=== PATIENT | female | born 1980 | race Caucasian/White ===

== ENCOUNTER 2017-05-26 22:28 | Emergency (ER) | payer MEDICAID ==
[~2017-05-26] VITALS: Ht 162.6 cm; Wt 47.0 kg
[~2017-05-26 22:28] MED LIST: BUSP5TAB3 PO; ESCI20TA PO; INSU100C4 SQ; LEVE500T PO; LISI-600 PO; NORCO10T PO; NORT50CA PO; OMEP40CA37 PO; ONDA4TAB6 PO; PREG150C PO; TRAM50TA2 PO; ZOF4T PO
[2017-05-26] MEDS ORDERED: LORazepam 1 MG tablet PO ONE (23:00)
[2017-05-26 23:45] LABS: BASOPHILS % (AUTO) 0.4 % (0-1); EOSINOPHILS # (AUTO) 0.1 X10'3 (0-0.9); EOSINOPHILS % (AUTO) 1.5 % (0-6); HEMATOCRIT 33.4 % (35.0-45.0); LYMPHOCYTES # (AUTO) 1.4 X10'3 (1.1-4.8); LYMPHOCYTES % (AUTO) 30.1 % (21-51); MEAN CORPUSCULAR HEMOGLOBIN 23.6 PG (27.0-31.0); MEAN CORPUSCULAR HGB CONC 32.9 % (33.0-36.5); MEAN CORPUSCULAR VOLUME 71.9 FL (78-98); MEAN PLATELET VOLUME 8.4 FL (7.4-10.4); MONOCYTES # (AUTO) 0.3 X10'3 (0-0.9); MONOCYTES % (AUTO) 5.7 % (2-12); NEUTROPHILS % (AUTO) 62.3 % (42-75); PLATELET COUNT 273 X10'3 (140-440); RED BLOOD COUNT 4.64 X10'6 (4.20-5.60); RED CELL DISTRIBUTION WIDTH 21.7 % (11.5-14.5); WHITE BLOOD COUNT 4.8 X10'3 (4.5-11.0)
[2017-05-26 23:55] LABS: URINE HCG NEGATIVE (NEG)
[2017-05-26 23:57] LABS: CLARITY,URINE CLEAR (Clear); COLOR,URINE YELLOW (Yellow); GLUCOSE, URINE >=1000 mg/dl (Neg); KETONES,URINE NEGATIVE (Neg); LEUKOCYTE ESTERASE ,URINE NEGATIVE (Neg); NITRITES, URINE NEGATIVE (Neg); OCCULT BLOOD,URINE NEGATIVE (Neg); PROTEIN,URINE NEGATIVE (Neg); UROBILINOGEN,URINE 0.2 E.U/dL (0.2-1.0)
[2017-05-27 00:01] LABS: ALANINE AMINOTRANSFERASE 299 U/L (12-78); ALBUMIN 3.4 G/DL (3.4-5.0); ALBUMIN/GLOBULIN RATIO 0.9 (1.1-1.5); ALKALINE PHOSPHATASE 251 IU/L (46-116); ANION GAP 10 (8-16); ASPARTATE AMINO TRANSFERASE 170 U/L (10-37); BILIRUBIN,TOTAL 0.5 MG/DL (0.1-1.0); BLOOD UREA NITROGEN 18 MG/DL (7-18); BUN/CREATININE RATIO 16.7 (6.6-38.0); CALCIUM 8.7 MG/DL (8.5-10.1); CHLORIDE 90 MMOL/L (99-107); CREATININE 1.08 MG/DL (0.40-0.90); ETHANOL < 0.010 GM/DL (0.0-0.010); LIPASE 119 U/L (73-393); MAGNESIUM 2.1 MG/DL (1.5-2.4); PHOSPHORUS 3.6 MG/DL (2.3-4.5); POTASSIUM 3.9 MMOL/L (3.5-5.1); SODIUM 127 MMOL/L (135-145); TOTAL CARBON DIOXIDE 27.3 MMOL/L (24-32); eGFR 58 ML/MIN
[2017-05-27 00:04] LABS: GLUCOSE 692 MG/DL (70-104)
[2017-05-27 00:06] LABS: ABG BASE EXCESS -4.2 mmol/L (-2.0-3.0); ABG HCO3 20.3 mmol/L (22.0-26.0); ABG OXYGEN SATURATION 97.3 % (95-98); ABG PCO2 (T) 34.4 mmHg (32.0-45.0); ABG PH (T) 7.386 (7.350-7.450); ABG PO2 (T) 104.1 mmHg (83-108); ALLEN'S TEST Positive; FCOHb 0.7 % (0.5-1.5); FMetHb 0.3 % (0.3-1.12); FO2Hb 96.3 % (94-100); PATIENT TEMPERATURE 36.7; TOTAL HEMOGLOBIN 10.6 G/dl (12.0-16.0)
[2017-05-27 00:07] LABS: URINE AMPHETAMINE SCREEN NEGATIVE (Neg); URINE BARBITUATE SCREEN NEGATIVE (Neg); URINE BENZODIAZEPINES SCREEN NEGATIVE (Neg); URINE CANNABINOID SCREEN NEGATIVE (Neg); URINE COCAINE SCREEN NEGATIVE (Neg); URINE METHADONE SCREEN NEGATIVE (Neg); URINE OPIATE SCREEN POSITIVE (Neg); URINE PHENCYCLIDINE SCREEN NEGATIVE (Neg)
[2017-05-27] MEDS ORDERED: normal saline 1000ML IV soln IVB ONE ×2 (00:15→00:35)
[2017-05-27 00:22] LABS: UA COLLECTION TYPE CLN CATCH MIDSTREAM
[2017-05-27 00:24] LABS: BACTERIA,URINE NONE SEEN /HPF (Neg); MUCUS STRANDS NONE SEEN /LPF (Neg); RBC,URINE 0-2 /HPF (0-2); SQUAMOUS EPITHELIAL CELL,UR FEW /LPF (FEW); WBC,URINE NONE SEEN /HPF (0-4)
[2017-05-27] MEDS ORDERED: insulin regular, human 10 units/0.1 ml syringe IV ONE ×3 (00:35→02:30)
[2017-05-27] MEDS ORDERED: morphine 4 MG/ML inj SYRINge IV ONE (01:00)
[2017-05-27] MEDS ORDERED: ondansetron/PF 4mg/2ml inj IV ONE (01:00)
[2017-05-27] MEDS ORDERED: normal saline 1000ml 1,000 ML IV ONE (02:30)
[2017-05-27] MEDS ORDERED: ibuprofen tablet 400 MG TABLET PO ONE (03:10)
[2017-05-27] MEDS ORDERED: LORazepam 2 mg/ml vial IV ONE (03:55)
[2017-05-27] MEDS ORDERED: LEVE500T PO (16:40)
[2017-05-27] MEDS ORDERED: LORA1TAB PO (16:42)
[2017-05-27] MEDS ORDERED: MESSAGE TO PHARMACY PO ONE ×3 (17:35→17:40)
[2017-05-27] MEDS ORDERED: dextrose 50%-water 50ml dispensing syringe IV PRN ×4 (17:35→17:40)
[2017-05-27] MEDS ORDERED: dextrose ORAL solution 15 GM/59 ML bottle PO PRN ×4 (17:35→17:40)
[2017-05-27] MEDS ORDERED: glucagon, human recombinant 1mg kit SUBCUT PRN ×2 (17:35→17:40)
[2017-05-27] MEDS ORDERED: insulin Lispro (HumaLOG) vial - multi-dose SQ SCH (17:35)
[2017-05-27] MEDS: LORazepam 1 MG tablet PO PRN ×2 (17:50→22:07)
[2017-05-27] MEDS: HYDROcodone/acetaminophen 10/325mg tab PO PRN (17:50)
[2017-05-27 18:07] LABS: HEMOGLOBIN A1C > 14.0 % (4.5-6.2)
[2017-05-27] MEDS ORDERED: LEVETIRACETAM 750 MG PO SCH (20:00)
[2017-05-27] MEDS: traMADol 50MG tablet PO PRN ×2 (20:57→22:10)
[2017-05-27] MEDS ORDERED: insulin glargine (Lantus) pen - multi-dose SQ SCH (21:00)
[2017-05-27] MEDS: ibuprofen tablet 400 MG TABLET PO PRN (21:36)
[2017-05-27] MEDS: insulin Lispro (HumaLOG) vial - multi-dose SQ SCH (21:40)
[2017-05-27] MEDS: insulin glargine (Lantus) pen - multi-dose SQ SCH (21:44)
[2017-05-27] MEDS: levetiracetam 250mg tablet PO SCH (22:09)
[2017-05-28] MEDS: HYDROcodone/acetaminophen 10/325mg tab PO PRN ×4 (00:10→23:05)
[2017-05-28] MEDS: insulin Lispro (HumaLOG) vial - multi-dose SQ SCH ×3 (07:52→17:56)
[2017-05-28] MEDS: levetiracetam 250mg tablet PO SCH ×2 (07:54→20:25)
[2017-05-28] MEDS: LORazepam 1 MG tablet PO PRN ×2 (07:57→19:35)
[2017-05-28 11:27] LABS: BASOPHILS % (AUTO) 0.6 % (0-1); EOSINOPHILS # (AUTO) 0.1 X10'3 (0-0.9); EOSINOPHILS % (AUTO) 1.9 % (0-6); HEMATOCRIT 27.6 % (35.0-45.0); HEMOGLOBIN 9.2 g/dl (12.0-16.0); LYMPHOCYTES # (AUTO) 1.7 X10'3 (1.1-4.8); LYMPHOCYTES % (AUTO) 38.9 % (21-51); MEAN CORPUSCULAR HEMOGLOBIN 24.1 PG (27.0-31.0); MEAN CORPUSCULAR HGB CONC 33.5 % (33.0-36.5); MEAN PLATELET VOLUME 7.6 FL (7.4-10.4); MONOCYTES # (AUTO) 0.3 X10'3 (0-0.9); NEUTROPHILS # (AUTO) 2.3 X10'3 (1.8-7.7); NEUTROPHILS % (AUTO) 51.6 % (42-75); PLATELET COUNT 254 X10'3 (140-440); RED BLOOD COUNT 3.83 X10'6 (4.20-5.60); WHITE BLOOD COUNT 4.4 X10'3 (4.5-11.0)
[2017-05-28 11:44] LABS: ANION GAP 7 (8-16); BLOOD UREA NITROGEN 11 MG/DL (7-18); CHLORIDE 103 MMOL/L (99-107); GLUCOSE 177 MG/DL (70-104); POTASSIUM 3.9 MMOL/L (3.5-5.1); SODIUM 137 MMOL/L (135-145); TOTAL CARBON DIOXIDE 27.1 MMOL/L (24-32)
[2017-05-28 11:45] LABS: ALANINE AMINOTRANSFERASE 181 U/L (12-78); ALBUMIN 2.2 G/DL (3.4-5.0); ALBUMIN/GLOBULIN RATIO 0.8 (1.1-1.5); ALKALINE PHOSPHATASE 169 IU/L (46-116); ASPARTATE AMINO TRANSFERASE 108 U/L (10-37); BILIRUBIN,TOTAL 0.2 MG/DL (0.1-1.0); CALCIUM 7.9 MG/DL (8.5-10.1); eGFR > 90 ML/MIN
[2017-05-28] MEDS: traMADol 50MG tablet PO PRN ×2 (11:49→18:00)
[2017-05-28] MEDS ORDERED: LORazepam 1 MG tablet PO ONE (12:05)
[2017-05-28] MEDS: insulin glargine (Lantus) pen - multi-dose SQ SCH (21:24)
[2017-05-29] MEDS: HYDROcodone/acetaminophen 10/325mg tab PO PRN ×3 (07:17→21:23)
[2017-05-29] MEDS: levetiracetam 250mg tablet PO SCH ×2 (07:17→19:15)
[2017-05-29] MEDS: ibuprofen tablet 400 MG TABLET PO PRN (08:06)
[2017-05-29] MEDS: insulin Lispro (HumaLOG) vial - multi-dose SQ SCH ×3 (08:19→19:21)
[2017-05-29] MEDS: traMADol 50MG tablet PO PRN ×2 (09:28→18:09)
[2017-05-29] MEDS: LORazepam 1 MG tablet PO PRN ×2 (09:28→18:07)
[2017-05-29] MEDS ORDERED: BREX2TAB PO (10:18)
[2017-05-29 11:55] LABS: OCCULT BLOOD STOOL NEGATIVE (Neg)
[2017-05-29] MEDS: CITALOpram 10mg tablet PO SCH (12:47)
[2017-05-29] MEDS: QUEtiapine 25mg tablet PO SCH (19:15)
[2017-05-29] MEDS: insulin glargine (Lantus) pen - multi-dose SQ SCH (21:13)
[2017-05-30] MEDS: CITALOpram 10mg tablet PO SCH (08:31)
[2017-05-30] MEDS: levetiracetam 250mg tablet PO SCH (08:31)
[2017-05-30] MEDS: QUEtiapine 25mg tablet PO SCH (08:32)
[2017-05-30] MEDS: LORazepam 1 MG tablet PO PRN (08:33)
[2017-05-30] MEDS: HYDROcodone/acetaminophen 10/325mg tab PO PRN ×2 (08:33→14:32)
[2017-05-30] MEDS: insulin Lispro (HumaLOG) vial - multi-dose SQ SCH ×2 (08:36→14:12)
[2017-05-30] MEDS: traMADol 50MG tablet PO PRN (13:45)
[2017-05-30 17:23] VITALS: BP 110/78
== END 2017-05-30 17:26 | disposition home or self-care (01) ==
LOC: ER 22:28
DX: R45.851 Suicidal ideations (principal); E10.65 Type 1 diabetes mellitus with hyperglycemia; F15.10 Other stimulant abuse, uncomplicated; R74.0 Nonspecific elevation of levels of transaminase and lactic acid dehydrogenase [LDH]; F17.200 Nicotine dependence, unspecified, uncomplicated; Z90.49 Acquired absence of other specified parts of digestive tract; Z56.0 Unemployment, unspecified; Z88.0 Allergy status to penicillin; Z79.899 Other long term (current) drug therapy; Z79.4 Long term (current) use of insulin
CPT/HCPCS: 36415; 36600; 80053; 80305; 80320; 81001; 81025; 82272; 82803; 82948; 83036; 83690; 83735; 84100; 84443; 85018; 85025; 96361; 96372; 96374; 96375; 96376; 99285; J1815; J2060; J2270; J2405; 81003

== ENCOUNTER 2017-06-03 16:49 | Emergency (ER) | payer MEDICAID ==
[~2017-06-03] VITALS: Ht 162.6 cm; Wt 53.0 kg
[~2017-06-03 16:49] MED LIST changes: +BREX2TAB PO; -BUSP5TAB3 PO; -ESCI20TA PO; -LISI-600 PO; +LORA1TAB PO; -NORT50CA PO; -OMEP40CA37 PO; -PREG150C PO; -ZOF4T PO
[2017-06-03 17:04] VITALS: BP 125/85
== END 2017-06-03 19:25 | disposition home or self-care (01) ==
LOC: ER 16:50
DX: Z00.00 Encounter for general adult medical examination without abnormal findings (principal); E11.9 Type 2 diabetes mellitus without complications; F15.10 Other stimulant abuse, uncomplicated; Z90.49 Acquired absence of other specified parts of digestive tract; Z56.0 Unemployment, unspecified; Z88.0 Allergy status to penicillin; Z88.2 Allergy status to sulfonamides; Z79.84 Long term (current) use of oral hypoglycemic drugs; Z79.899 Other long term (current) drug therapy; Z98.84 Bariatric surgery status
CPT/HCPCS: 99281

== ENCOUNTER 2017-08-30 14:46 | Emergency (ER) | payer MEDICARE, MEDICAID ==
[~2017-08-30] VITALS: Ht 162.6 cm; Wt 51.0 kg
[2017-08-30 15:32] LABS: BASOPHILS % (AUTO) 0.4 % (0-1); EOSINOPHILS # (AUTO) 0.2 X10'3 (0-0.9); HEMATOCRIT 33.5 % (35.0-45.0); HEMOGLOBIN 10.7 g/dl (12.0-16.0); LYMPHOCYTES # (AUTO) 1.5 X10'3 (1.1-4.8); LYMPHOCYTES % (AUTO) 27.1 % (21-51); MEAN CORPUSCULAR HEMOGLOBIN 22.6 PG (27.0-31.0); MEAN CORPUSCULAR HGB CONC 31.9 % (33.0-36.5); MEAN CORPUSCULAR VOLUME 70.8 FL (78-98); MEAN PLATELET VOLUME 7.8 FL (7.4-10.4); MONOCYTES # (AUTO) 0.4 X10'3 (0-0.9); MONOCYTES % (AUTO) 7.5 % (2-12); NEUTROPHILS # (AUTO) 3.4 X10'3 (1.8-7.7); PLATELET COUNT 273 X10'3 (140-440); RED BLOOD COUNT 4.72 X10'6 (4.20-5.60); RED CELL DISTRIBUTION WIDTH 23.6 % (11.5-14.5); WHITE BLOOD COUNT 5.6 X10'3 (4.5-11.0)
[2017-08-30 15:37] LABS: CLARITY,URINE SLIGHTLY CLOUDY (Clear); COLOR,URINE YELLOW (Yellow); GLUCOSE, URINE >=1000 mg/dl (Neg); KETONES,URINE NEGATIVE (Neg); LEUKOCYTE ESTERASE ,URINE NEGATIVE (Neg); NITRITES, URINE NEGATIVE (Neg); OCCULT BLOOD,URINE NEGATIVE (Neg); PH,URINE 7.5 (4.8-8.0); PROTEIN,URINE NEGATIVE (Neg); UROBILINOGEN,URINE 0.2 E.U/dL (0.2-1.0)
[2017-08-30 15:39] LABS: URINE HCG NEGATIVE (NEG)
[2017-08-30 15:48] LABS: UA COLLECTION TYPE CLN CATCH MIDSTREAM
[2017-08-30 15:49] LABS: SQUAMOUS EPITHELIAL CELL,UR FEW /LPF (FEW)
[2017-08-30 15:50] LABS: AMORPHOUS PHOSPHATES 2+
[2017-08-30 15:51] LABS: BACTERIA,URINE NONE SEEN /HPF (Neg); RBC,URINE NONE SEEN /HPF (0-2); WBC,URINE 0-4 /HPF (0-4)
[2017-08-30 15:52] LABS: ALANINE AMINOTRANSFERASE 99 U/L (12-78); ALBUMIN 3.1 G/DL (3.4-5.0); ALKALINE PHOSPHATASE 114 IU/L (46-116); ANION GAP 9 (8-16); ASPARTATE AMINO TRANSFERASE 55 U/L (10-37); BILIRUBIN,TOTAL 0.2 MG/DL (0.1-1.0); BLOOD UREA NITROGEN 14 MG/DL (7-18); BUN/CREATININE RATIO 19.7 (6.6-38.0); CALCIUM 8.1 MG/DL (8.5-10.1); CHLORIDE 105 MMOL/L (99-107); CREATININE 0.71 MG/DL (0.40-0.90); GLUCOSE 405 MG/DL (70-104); POTASSIUM 4.2 MMOL/L (3.5-5.1); SODIUM 137 MMOL/L (135-145); TOTAL CARBON DIOXIDE 23.5 MMOL/L (24-32); TOTAL PROTEIN 6.2 G/DL (6.4-8.2); eGFR > 90 ML/MIN
[2017-08-30 16:09] LABS: ANISOCYTOSIS 3+; PLATELET ESTIMATE NORMAL
[2017-08-30 16:10] LABS: ELLIPTOCYTES 1+; HYPOCHROMASIA 1+; MICROCYTOSIS 1+; POLYCHROMASIA 1+
[2017-08-30] MEDS ORDERED: normal saline 1000ML IV soln IVB ONE (16:35)
[2017-08-30] MEDS ORDERED: ondansetron/PF 4mg/2ml inj IV ONE (16:35)
[2017-08-30] MEDS ORDERED: insulin regular, human 10 units/0.1 ml syringe IV ONE (16:35)
[2017-08-30 17:47] VITALS: BP 123/72
== END 2017-08-30 19:01 | disposition home or self-care (01) ==
LOC: ER 14:48
DX: E11.65 Type 2 diabetes mellitus with hyperglycemia (principal); R60.9 Edema, unspecified; F15.90 Other stimulant use, unspecified, uncomplicated; Z90.49 Acquired absence of other specified parts of digestive tract; Z98.890 Other specified postprocedural states; Z56.0 Unemployment, unspecified; Z98.84 Bariatric surgery status; Z88.0 Allergy status to penicillin; Z88.2 Allergy status to sulfonamides; Z79.899 Other long term (current) drug therapy
CPT/HCPCS: 36415; 71045; 80053; 81001; 81025; 82948; 83880; 85025; 96361; 96374; 96375; 99285; J1815; J2405; J7030

== ENCOUNTER 2018-02-26 11:41 | Emergency (ER) | payer MEDICARE, MEDICAID ==
[~2018-02-26] VITALS: Ht 162.6 cm; Wt 45.5 kg
[2018-02-26] MEDS ORDERED: insulin regular, human 10 units/0.1 ml syringe IV ONE (12:05)
[2018-02-26] MEDS ORDERED: normal saline 1000ML IV soln IVB ONE (12:05)
[2018-02-26] MEDS ORDERED: insulin regular, human 10 units/0.1 ml syringe SQ ONE (12:05)
[2018-02-26] MEDS ORDERED: LORazepam 2 mg/ml vial IV ONE (12:05)
[2018-02-26] MEDS ORDERED: haloperidol lactate 5mg/ml inj IM ONE (12:10)
[2018-02-26] MEDS ORDERED: diphenhydrAMINE 50 mg/ml inj IV ONE (12:10)
[2018-02-26] MEDS ORDERED: cloNIDine 0.1 mg tablet PO SCH (12:10)
[2018-02-26 12:16] LABS: BASOPHILS % (AUTO) 0.6 % (0-1); EOSINOPHILS # (AUTO) 0.1 X10'3 (0-0.9); EOSINOPHILS % (AUTO) 3.2 % (0-6); HEMATOCRIT 38.2 % (35.0-45.0); HEMOGLOBIN 12.5 g/dl (12.0-16.0); LYMPHOCYTES # (AUTO) 1.5 X10'3 (1.1-4.8); LYMPHOCYTES % (AUTO) 33.2 % (21-51); MEAN CORPUSCULAR HEMOGLOBIN 24.6 PG (27.0-31.0); MEAN CORPUSCULAR HGB CONC 32.7 % (33.0-36.5); MEAN CORPUSCULAR VOLUME 75.3 FL (78-98); MEAN PLATELET VOLUME 8.2 FL (7.4-10.4); MONOCYTES # (AUTO) 0.3 X10'3 (0-0.9); MONOCYTES % (AUTO) 6.3 % (2-12); NEUTROPHILS # (AUTO) 2.5 X10'3 (1.8-7.7); NEUTROPHILS % (AUTO) 56.7 % (42-75); PLATELET COUNT 271 X10'3 (140-440); RED BLOOD COUNT 5.07 X10'6 (4.20-5.60); RED CELL DISTRIBUTION WIDTH 17.6 % (11.5-14.5); WHITE BLOOD COUNT 4.4 X10'3 (4.5-11.0)
[2018-02-26 12:35] LABS: PARTIAL THROMBOPLASTIN TIME 26 SECONDS (22-32); PROTHROMBIN TIME 10.2 SECONDS (9.0-12.0)
[2018-02-26 12:36] LABS: ALANINE AMINOTRANSFERASE 48 U/L (12-78); ALBUMIN 3.4 G/DL (3.4-5.0); ALBUMIN/GLOBULIN RATIO 1.1 (1.1-1.5); ALKALINE PHOSPHATASE 95 IU/L (46-116); ANION GAP 16 (8-16); ASPARTATE AMINO TRANSFERASE 47 U/L (10-37); BILIRUBIN,TOTAL 0.6 MG/DL (0.1-1.0); BLOOD UREA NITROGEN 12 MG/DL (7-18); BUN/CREATININE RATIO 13.6 (6.6-38.0); CALCIUM 8.8 MG/DL (8.5-10.1); CHLORIDE 98 MMOL/L (99-107); CREATININE 0.88 MG/DL (0.40-0.90); ETHANOL < 0.010 GM/DL (0.0-0.010); MAGNESIUM 1.8 MG/DL (1.5-2.4); POTASSIUM 3.9 MMOL/L (3.5-5.1); SODIUM 136 MMOL/L (135-145); TOTAL CARBON DIOXIDE 21.6 MMOL/L (24-32); TOTAL PROTEIN 6.5 G/DL (6.4-8.2); TROPONIN I < 0.04 NG/ML (0.0-0.05); eGFR 73 ML/MIN
[2018-02-26 12:42] LABS: GLUCOSE 483 MG/DL (70-104)
[2018-02-26 14:54] LABS: CLARITY,URINE CLEAR (Clear); COLOR,URINE STRAW (Yellow); GLUCOSE, URINE >=1000 mg/dl (Neg); KETONES,URINE 15 mg/dl (Neg); LEUKOCYTE ESTERASE ,URINE NEGATIVE (Neg); NITRITES, URINE NEGATIVE (Neg); OCCULT BLOOD,URINE NEGATIVE (Neg); PH,URINE 7.5 (4.8-8.0); PROTEIN,URINE NEGATIVE (Neg); UA COLLECTION TYPE STRAIGHT CATH; URINE HCG NEGATIVE (NEG); UROBILINOGEN,URINE 0.2 E.U/dL (0.2-1.0)
[2018-02-26 15:07] LABS: URINE AMPHETAMINE SCREEN POSITIVE (Neg); URINE BARBITUATE SCREEN NEGATIVE (Neg); URINE BENZODIAZEPINES SCREEN NEGATIVE (Neg); URINE CANNABINOID SCREEN NEGATIVE (Neg); URINE COCAINE SCREEN NEGATIVE (Neg); URINE METHADONE SCREEN NEGATIVE (Neg); URINE OPIATE SCREEN NEGATIVE (Neg); URINE PHENCYCLIDINE SCREEN NEGATIVE (Neg)
[2018-02-26 15:15] LABS: BACTERIA,URINE NONE SEEN /HPF (Neg); RBC,URINE NONE SEEN /HPF (0-2); SQUAMOUS EPITHELIAL CELL,UR FEW /LPF (FEW); WBC,URINE 0-4 /HPF (0-4)
[2018-02-26] MEDS ORDERED: dextrose 50%-water 50ml dispensing syringe IV ONE (15:55)
[2018-02-26 16:50] VITALS: BP 113/66
--- NOTE | 2018-02-26 17:10 | NUR ---
PATIENT DRANK 240 ML WHOLE MILK
--- NOTE | 2018-02-26 17:24 | NUR ---
ATTEMPTED TO CALL HER MOTHER PATIENT AMBULATED TO BATHROOM WITH STANDBY ASSIST
--- NOTE | 2018-02-26 17:46 | NUR ---
ATTEMPTED TO CALL MOTHER, MESSAGE LEFT TO CALL BACK
== END 2018-02-26 18:25 | disposition home or self-care (01) ==
LOC: ER 11:42
DX: F41.9 Anxiety disorder, unspecified (principal); F15.10 Other stimulant abuse, uncomplicated; E11.9 Type 2 diabetes mellitus without complications; Z90.49 Acquired absence of other specified parts of digestive tract; Z88.0 Allergy status to penicillin; Z88.2 Allergy status to sulfonamides; Z79.899 Other long term (current) drug therapy; Z56.0 Unemployment, unspecified
CPT/HCPCS: 36415; 80053; 80305; 80320; 81001; 81025; 82140; 82948; 83605; 83735; 84145; 84484; 85025; 85610; 85730; 87040; 96372; 96374; 96375; 99284; J1200; J1630; J1815; J2060; J7030; P9612

== ENCOUNTER 2018-02-27 23:21 | Emergency (ER) | payer MEDICARE, MEDICAID ==
[~2018-02-27] VITALS: Ht 162.6 cm; Wt 45.5 kg
[2018-02-27] MEDS ORDERED: LORazepam 2 mg/ml vial IM ONE (23:35)
[2018-02-27] MEDS ORDERED: normal saline 1000ML IV soln IVB ONE ×2 (23:35→23:55)
[2018-02-27] MEDS ORDERED: diphenhydrAMINE 50 mg/ml inj IM ONE (23:35)
[2018-02-27] MEDS ORDERED: haloperidol lactate 5mg/ml inj IM ONE (23:35)
[2018-02-28] MEDS ORDERED: LORazepam 2 mg/ml vial IM ONE (00:05)
[2018-02-28 00:40] LABS: BASOPHILS # (AUTO) 0.1 X10'3 (0-0.2); BASOPHILS % (AUTO) 0.9 % (0-1); EOSINOPHILS # (AUTO) 0.1 X10'3 (0-0.9); HEMATOCRIT 37.8 % (35.0-45.0); HEMOGLOBIN 12.3 g/dl (12.0-16.0); LYMPHOCYTES # (AUTO) 1.2 X10'3 (1.1-4.8); LYMPHOCYTES % (AUTO) 20.3 % (21-51); MEAN CORPUSCULAR HEMOGLOBIN 24.7 PG (27.0-31.0); MEAN CORPUSCULAR HGB CONC 32.6 % (33.0-36.5); MEAN PLATELET VOLUME 8.1 FL (7.4-10.4); MONOCYTES # (AUTO) 0.4 X10'3 (0-0.9); MONOCYTES % (AUTO) 7.4 % (2-12); NEUTROPHILS # (AUTO) 4.1 X10'3 (1.8-7.7); NEUTROPHILS % (AUTO) 70.4 % (42-75); PLATELET COUNT 255 X10'3 (140-440); RED BLOOD COUNT 4.98 X10'6 (4.20-5.60); RED CELL DISTRIBUTION WIDTH 16.7 % (11.5-14.5); WHITE BLOOD COUNT 5.9 X10'3 (4.5-11.0)
[2018-02-28 00:50] LABS: ALANINE AMINOTRANSFERASE 51 U/L (12-78); ALBUMIN 3.5 G/DL (3.4-5.0); ALBUMIN/GLOBULIN RATIO 1.1 (1.1-1.5); ALKALINE PHOSPHATASE 95 IU/L (46-116); ANION GAP 14 (8-16); ASPARTATE AMINO TRANSFERASE 40 U/L (10-37); BILIRUBIN,TOTAL 0.4 MG/DL (0.1-1.0); BLOOD UREA NITROGEN 13 MG/DL (7-18); BUN/CREATININE RATIO 17.3 (6.6-38.0); CALCIUM 8.9 MG/DL (8.5-10.1); CHLORIDE 104 MMOL/L (99-107); CREATININE 0.75 MG/DL (0.40-0.90); ETHANOL < 0.010 GM/DL (0.0-0.010); GLUCOSE 310 MG/DL (70-104); LIPASE 76 U/L (73-393); MAGNESIUM 1.7 MG/DL (1.5-2.4); PHOSPHORUS 2.7 MG/DL (2.3-4.5); POTASSIUM 3.2 MMOL/L (3.5-5.1); SODIUM 142 MMOL/L (135-145); TOTAL CARBON DIOXIDE 24.4 MMOL/L (24-32); TOTAL PROTEIN 6.6 G/DL (6.4-8.2); eGFR 88 ML/MIN
[2018-02-28 01:01] LABS: HCG SERUM QL NEGATIVE
[2018-02-28 02:05] LABS: CLARITY,URINE CLEAR (Clear); COLOR,URINE YELLOW (Yellow); GLUCOSE, URINE >=1000 mg/dl (Neg); KETONES,URINE 40 mg/dl (Neg); LEUKOCYTE ESTERASE ,URINE NEGATIVE (Neg); NITRITES, URINE NEGATIVE (Neg); OCCULT BLOOD,URINE NEGATIVE (Neg); PROTEIN,URINE NEGATIVE (Neg); UROBILINOGEN,URINE 0.2 E.U/dL (0.2-1.0)
[2018-02-28 02:16] LABS: UA COLLECTION TYPE NON-SPECIFIED
[2018-02-28 02:18] LABS: BACTERIA,URINE NONE SEEN /HPF (Neg); RBC,URINE NONE SEEN /HPF (0-2); SQUAMOUS EPITHELIAL CELL,UR NONE SEEN /LPF (FEW); URINE AMPHETAMINE SCREEN POSITIVE (Neg); URINE BARBITUATE SCREEN NEGATIVE (Neg); URINE BENZODIAZEPINES SCREEN NEGATIVE (Neg); URINE CANNABINOID SCREEN NEGATIVE (Neg); URINE COCAINE SCREEN NEGATIVE (Neg); URINE METHADONE SCREEN NEGATIVE (Neg); URINE OPIATE SCREEN NEGATIVE (Neg); URINE PHENCYCLIDINE SCREEN NEGATIVE (Neg); WBC,URINE NONE SEEN /HPF (0-4)
[2018-02-28] MEDS ORDERED: insulin regular, human 10 units/0.1 ml syringe SQ ONE (02:30)
[2018-02-28] MEDS ORDERED: potassium Cl 20 mEq SR tablet PO ONE (02:30)
--- NOTE | 2018-02-28 08:41 | NUR ---
PT AWAKE, AXO. PT WANTS TO GO HOME
--- NOTE | 2018-02-28 08:48 | NUR ---
report given to overflow, pt moved to overflow
--- NOTE | 2018-02-28 08:50 | NUR ---
Patient transferred from Bed 8 to Bed 25, ambulatory, accompanied by ER staff Florecita. Made comfortable in bed. Given breakfast tray. Ate 100% of her meal. Fell back to sleep immediately afterwards.
--- NOTE | 2018-02-28 09:10 | NUR ---
Madison from [facility] at bedside to evaluate patient. Spoke with Dr. Gonzalez about patient's present condition. Order given to discharge patient. Patient informed. Happy with this decision. Called boyfriend to pick her up from the hospital.
--- NOTE | 2018-02-28 09:45 | NUR ---
Boyfriend has not shown up yet. Patient's wound on coccyx examined. Open wound noted right above tail bone. Rinsed with normal saline and dressed with 4X4's. Patient stated she had an appointment today at 10 AM at [facility]. [facility] called and reported patient has missed her last five appointments. At present her care has been put on hold and will be under review by the Wound Care Board. Patient encouraged to call [facility] and request she be given another chance to have her coccyx wound addressed. Patient agreed to do so.
--- NOTE | 2018-02-28 10:15 | NUR ---
Patient asleep at this time while waiting for boyfriend to pick her up from the hospital.
--- NOTE | 2018-02-28 11:30 | NUR ---
Patient's blood sugar taken before discharge. Results = 278. Patient has an insulin pump. States "I know what to do." Observed administereing insulin to self from her pump. Patient states "My diabetes has been out of control for a long time."
--- NOTE | 2018-02-28 12:00 | NUR ---
Boyfriend here to parts picker patient and take her to their home. Patient given wound care supplies to assist with keeping her wound clean until she receives proper care from her Diabetes Provider, Kendra Finch NP and possible the [facility] at [facility]. Discharged via ambulatory with all her personal belongings.
[2018-02-28 13:47] VITALS: BP 134/90
== END 2018-02-28 12:00 | disposition home or self-care (01) ==
LOC: ER 23:22
DX: F28 Other psychotic disorder not due to a substance or known physiological condition (principal); R10.9 Unspecified abdominal pain; F15.90 Other stimulant use, unspecified, uncomplicated; E10.9 Type 1 diabetes mellitus without complications; Z56.0 Unemployment, unspecified; Z90.49 Acquired absence of other specified parts of digestive tract; Z98.890 Other specified postprocedural states; Z98.84 Bariatric surgery status; Z88.0 Allergy status to penicillin; Z88.2 Allergy status to sulfonamides; Z79.899 Other long term (current) drug therapy; Z79.4 Long term (current) use of insulin
CPT/HCPCS: 36415; 74176; 80053; 80305; 80320; 81001; 82948; 83605; 83690; 83735; 84100; 84703; 85025; 96372; 99284; J1200; J1630; J2060; J7030; P9612

== ENCOUNTER 2018-05-31 12:45 | Emergency (ER) | payer MEDICARE, MEDICAID ==
[~2018-05-31] VITALS: Ht 160 cm; Wt 50.0 kg
[2018-05-31] MEDS ORDERED: naloxone 2mg/2ml inj IV ONE (13:00)
[2018-05-31] MEDS ORDERED: normal saline 1000ML IV soln IVB ONE (13:00)
--- NOTE | 2018-05-31 13:15 | NUR ---
NARCAN GIVEN, NO RESULT, AWARE
[2018-05-31 13:27] LABS: BASOPHILS # (AUTO) 0.1 X10'3 (0-0.2); BASOPHILS % (AUTO) 0.9 % (0-1); EOSINOPHILS # (AUTO) 0.1 X10'3 (0-0.9); LYMPHOCYTES # (AUTO) 1.5 X10'3 (1.1-4.8); LYMPHOCYTES % (AUTO) 22.6 % (21-51); MEAN CORPUSCULAR HEMOGLOBIN 22.8 PG (27.0-31.0); MEAN CORPUSCULAR HGB CONC 32.2 g/dL (33.0-36.5); MEAN CORPUSCULAR VOLUME 70.6 FL (78-98); MEAN PLATELET VOLUME 7.3 FL (7.4-10.4); MONOCYTES # (AUTO) 0.5 X10'3 (0-0.9); MONOCYTES % (AUTO) 6.6 % (2-12); NEUTROPHILS # (AUTO) 4.7 X10'3 (1.8-7.7); NEUTROPHILS % (AUTO) 67.9 % (42-75); PLATELET COUNT 357 X10'3 (140-440); RED BLOOD COUNT 3.97 X10'6 (4.20-5.60); RED CELL DISTRIBUTION WIDTH 16.7 % (11.5-14.5); WHITE BLOOD COUNT 6.9 X10'3 (4.5-11.0)
[2018-05-31 13:31] LABS: CLARITY,URINE CLEAR (Clear); COLOR,URINE STRAW (Yellow); GLUCOSE, URINE >=1000 mg/dl (Neg); KETONES,URINE NEGATIVE (Neg); LEUKOCYTE ESTERASE ,URINE NEGATIVE (Neg); NITRITES, URINE NEGATIVE (Neg); OCCULT BLOOD,URINE NEGATIVE (Neg); PH,URINE 6.5 (4.8-8.0); PROTEIN,URINE NEGATIVE (Neg); UROBILINOGEN,URINE 0.2 E.U/dL (0.2-1.0)
[2018-05-31 13:32] LABS: UA COLLECTION TYPE STRAIGHT CATH
[2018-05-31 13:38] LABS: SQUAMOUS EPITHELIAL CELL,UR FEW /LPF (FEW)
[2018-05-31 13:39] LABS: BACTERIA,URINE FEW /HPF (Neg); RBC,URINE 0-2 /HPF (0-2); WBC,URINE 0-4 /HPF (0-4)
[2018-05-31 13:42] LABS: ANION GAP 7 (8-16); BLOOD UREA NITROGEN 13 MG/DL (7-18); BUN/CREATININE RATIO 17.1 (6.6-38.0); CHLORIDE 104 MMOL/L (99-107); CREATININE 0.76 MG/DL (0.40-0.90); GLUCOSE 346 MG/DL (70-104); POTASSIUM 3.9 MMOL/L (3.5-5.1); SODIUM 137 MMOL/L (135-145); TOTAL CARBON DIOXIDE 26.1 MMOL/L (24-32)
[2018-05-31 13:43] LABS: ALANINE AMINOTRANSFERASE 107 U/L (12-78); ALBUMIN 3.1 G/DL (3.4-5.0); ALKALINE PHOSPHATASE 113 IU/L (46-116); ASPARTATE AMINO TRANSFERASE 93 U/L (10-37); BILIRUBIN,TOTAL 0.2 MG/DL (0.1-1.0); ETHANOL < 0.010 GM/DL (0.0-0.010); TOTAL PROTEIN 6.3 G/DL (6.4-8.2); eGFR 87 ML/MIN
[2018-05-31 13:57] LABS: URINE AMPHETAMINE SCREEN POSITIVE (Neg); URINE BARBITUATE SCREEN NEGATIVE (Neg); URINE BENZODIAZEPINES SCREEN NEGATIVE (Neg); URINE CANNABINOID SCREEN NEGATIVE (Neg); URINE COCAINE SCREEN NEGATIVE (Neg); URINE METHADONE SCREEN NEGATIVE (Neg); URINE OPIATE SCREEN NEGATIVE (Neg); URINE PHENCYCLIDINE SCREEN NEGATIVE (Neg)
[2018-05-31 17:53] VITALS: BP 139/89
== END 2018-05-31 17:54 | disposition home or self-care (01) ==
LOC: ER 12:45
DX: R41.82 Altered mental status, unspecified (principal); F15.10 Other stimulant abuse, uncomplicated; E11.9 Type 2 diabetes mellitus without complications; Z56.0 Unemployment, unspecified; Z90.49 Acquired absence of other specified parts of digestive tract; Z98.890 Other specified postprocedural states; Z98.84 Bariatric surgery status; Z88.0 Allergy status to penicillin; Z88.2 Allergy status to sulfonamides; Z79.899 Other long term (current) drug therapy; Z79.4 Long term (current) use of insulin
CPT/HCPCS: 36415; 70450; 71045; 80053; 80305; 80320; 81001; 82140; 85025; 93005; 96374; 99284; J2310; J7030; P9612

== ENCOUNTER 2018-06-19 17:17 | Inpatient (IN) | payer MEDICARE, MEDICAID ==
[~2018-06-19] VITALS: Ht 162.6 cm; Wt 52.8 kg
[2018-06-19] MEDS ORDERED: magnesium hydroxide 30ml (MOM) UD suspension PO PRN (22:45)
[2018-06-19] MEDS ORDERED: mag hydrox/Alum hydrox/simeth 30ml oral suspension PO PRN (22:45)
[2018-06-19] MEDS ORDERED: NICOTINE POLACRILEX 2 MG LOZENGE MM PRN (22:45)
[2018-06-19] MEDS ORDERED: loperamide 2mg capsule PO PRN (22:45)
[2018-06-19] MEDS ORDERED: lamoTRIgine 25mg tablet PO SCH (22:50)
[2018-06-19] MEDS ORDERED: ONDA8TAB13 PO (23:01)
[2018-06-19] MEDS ORDERED: LURA80TA3 PO (23:01)
[2018-06-19] MEDS ORDERED: TOP100T PO (23:01)
[2018-06-19] MEDS ORDERED: GABA600T13 PO (23:01)
[2018-06-19] MEDS: LORazepam 1 MG tablet PO PRN (23:21)
[2018-06-19] MEDS ORDERED: glucagon, human recombinant 1mg kit IM PRN (23:30)
[2018-06-19] MEDS ORDERED: dextrose ORAL solution 15 GM/59 ML bottle PO PRN (23:30)
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
[2018-06-20 00:03] VITALS: BP 128/88
[2018-06-20] MEDS ORDERED: ondansetron 4mg rapidly disintigrating tab PO PRN (02:00)
[2018-06-20] MEDS ORDERED: insulin Lispro (HumaLOG) vial - multi-dose SQ SCH (07:00)
[2018-06-20] MEDS ORDERED: dextrose 50%-water 50ml dispensing syringe IV PRN ×2 (07:15)
[2018-06-20] MEDS ORDERED: dextrose ORAL solution 15 GM/59 ML bottle PO PRN (07:15)
[2018-06-20] MEDS ORDERED: glucagon, human recombinant 1mg kit SUBCUT PRN (07:15)
[2018-06-20] MEDS ORDERED: MESSAGE TO PHARMACY PO ONE (07:15)
[2018-06-20 07:58] VITALS: BP 119/82
[2018-06-20] MEDS: lurasidone 20mg tablet PO SCH (08:22)
[2018-06-20] MEDS: topiramate 100mg tablet PO SCH (08:22)
[2018-06-20] MEDS: topiramate 25mg tablet PO SCH (08:23)
[2018-06-20] MEDS: gabapentin 300mg capsule PO SCH ×3 (08:23→21:18)
[2018-06-20] MEDS: levetiracetam 250mg tablet PO SCH ×2 (08:23→21:19)
[2018-06-20] MEDS: LORazepam 1 MG tablet PO PRN ×2 (08:42→17:25)
[2018-06-20] MEDS: insulin Lispro (HumaLOG) vial - multi-dose SQ SCH ×3 (09:04→18:38)
[2018-06-20] MEDS ORDERED: tuberculin, purif. prot. deriv. 5 units/0.1ml ID ONE (10:00)
[2018-06-20] MEDS: acetaminophen 325mg tablet PO PRN ×2 (10:30→17:28)
[2018-06-20 12:08] LABS: CHOL/HDL RATIO 2.5 (0.00-4.99); CHOLESTEROL 158 MG/DL (0-200); HDL CHOLESTEROL 63 MG/DL (35-60); LDL CHOLESTEROL 79 MG/DL (50-100); TRIGLYCERIDES 93 MG/DL (20-135)
[2018-06-20] MEDS: hydrOXYzine 25 MG tablet PO PRN (12:12)
--- NOTE | 2018-06-20 12:13 | NUR ---
Malnutrition consult: Patient's current wt is down 8 # from documented wt of 53 kg 06/03/17 using standing scale, current documented wt is 48.7 kg using bed scale with an underweight BMI of 18.4; this is non severe wt loss of 8% in one year. Pt currently on a CHO controlled diet with documented 100% PO intake meeting nutrient needs. Pt with no documented edema or decrease in muscle strength. Pt currently does not meet criteria for malnutrition. Pt with hx T1DM with A1c >14.0 05/26/2017, pending new A1c this visit. Will continue to follow. Addendum: 06/20/18 at [address] Amended: Links added.
[2018-06-20 12:26] LABS: HEMOGLOBIN A1C 13.6 % (4.5-6.2)
--- NOTE | 2018-06-20 17:10 | NUR ---
NURSING PROGRESS NOTE Legal hold: 5150 Client on voluntary/involuntary status for: DTS Report received from ZACARIAS Trsitan with use of SBAR[]. Why are they here: The patient has a HX of Depression. Patient lost custody of her kids due to meth use after she found her was cheating on her and patient started using meth. Patient has visitation with her youngest son at 6 hours per week. Patient's oldest son (9 years old) does not want contact. Patient is a Type I diabetic. Patient had a necrotizing fascitis on her chin which left a large scar. Patient has been very depressed and thinks of suicide daily. Patient reported to Dr Estrada that she gave herself 60 units of insulin to kill her self but it didn't work. Then patient filled 2 syringes of 100 units of insulin each to kill herself but didn't do it. Patient has been hearing voices telling "she is a piece of shit" and "your family hates you." Patient lives with her aunt. Patient continues with severe depression. Patient is a brittle diabetic who uses an insulin pump which was removed due to SI. Patient has a coccyx non healing wounds and 3 abscess' to legs and arm, which one is packed. Assessment What has happened this shift: Patient was asleep at change of shift an up before breakfast. Patient's BG was 472 prior to breakfast, 356 prior to lunch and 214 prior to dinner. Patient is now on a level 3 protocol. Patient is very depressed and denies SI. Patient is still hearing negative voices. Patient did not go to groups today and slept instead. Patient has eaten 100% of her meals. RN placed an order for wound care consult. RN will change the dressings tomorrow, day shift. Patient was seen by Hospitalist this evening. Patient has kept to herself today. S/I, H/I: daily SI A/VH: auditory Sleep: 8 ADL's: Self sufficient Group attendance: No Were meds taken: Yes Any med S/E: None Mental Status Exam Appearance: WNL Eye contact: Fair Behavior: Cooperative Speech: Soft Mood: Depressed Affect: Blunted Thought process: Linear Thought Content: Getting out of depression Cognition: normal Insight: fair Judgment: fair Interventions PRN's used: None Therapeutic interventions: established rapport, 1:1 assessment with patient, provided active listening, provided a safe and therapeutic environment, provided reassurance, medication administration and education, and maintained q15m safety checks. Restraints/seclusion/emergency medication: None Justification of Continued Inpatient Treatment: The patient is very depressed and is a danger to herself, requiring medication management and a therapeutic milieu to interrupt current crisis. Without intervention she is at risk for harming herself and/or readmission.
[2018-06-20] MEDS ORDERED: duloxetine 30mg CAPSULE.DR PO ONE (17:35)
[2018-06-20 20:50] VITALS: BP 138/81
[2018-06-20] MEDS: insulin glargine (Lantus) pen - multi-dose SQ SCH (21:17)
--- NOTE | 2018-06-21 03:08 | NUR ---
NURSING PROGRESS NOTE Legal hold: 5150 Client on voluntary/involuntary status for: DTS Report received from CAN Rodriguez with use of SBAR Why are they here: The patient has a HX of Depression. Patient lost custody of her kids due to meth use after she found her was cheating on her and patient started using meth. Patient has visitation with her youngest son at 6 hours per week. Patient's oldest son (9 years old) does not want contact. Patient is a Type I diabetic. Patient had a necrotizing fascitis on her chin which left a large scar. Patient has been very depressed and thinks of suicide daily. Patient reported to Dr Estrada that she gave herself 60 units of insulin to kill her self but it didn't work. Then patient filled 2 syringes of 100 units of insulin each to kill herself but didn't do it. Patient has been hearing voices telling "she is a piece of shit" and "your family hates you." Patient lives with her aunt. Patient continues with severe depression. Patient is a brittle diabetic who uses an insulin pump which was removed due to SI. Patient has a coccyx non healing wounds and 3 abscess' to legs and arm, which one is packed. Assessment What has happened this shift: Received patient sleeping in room at shift change. No distress noted. Pt was difficult to arouse. RN had to repeat herself several times before patient awoke. Pt was cooperative. 1:1 assessment performed at bedside. Pt denies SI, A/VH. Pt states she has heard voices in the past, but none presently. RN asked pt about meth use and when the last time pt had gotten high. Pt stated a couple of days ago. Pt HS blood glucose was 179, 13 units of scheduled Lantus was administered. Pt was medication compliant. Pt slept through HS snack, so RN gave pt a PB&J and some juice. Drsg on left leg and JARON were CDI. Assessed coccyx wound. No drainage noted, some erythema noted around wound. Wound consult has been activated. Pt was up long enough to eat then retired back to bed and slept through the shift. S/I, H/I: None reported or observed A/VH: None reported or observed Sleep: See sleep assessment notation ADL's: Independent Group attendance: airfield operations specialist, no group Were meds taken: Pt medication compliant Any med S/E: None reported or observed Mental Status Exam Appearance: Clean, wearing green scrubs Eye contact: Fair Behavior: Cooperative, fatigued, sleepy Speech: Soft, minimal Mood: Depressed Affect: Blunted Thought process: Linear Thought Content: I am hungry Cognition: A&O x4 Insight: Fair Judgment: Fair Interventions PRN's used: None Therapeutic interventions: established rapport, 1:1 assessment with patient, provided active listening, provided a safe and therapeutic environment, administered medication and monitored for side effect, maintained seizure precautions. Maintained q15min safety checks. Restraints/seclusion/emergency medication: N/A Justification of Continued Inpatient Treatment: The patient is very depressed and is a danger to herself, requiring medication management and a therapeutic milieu to interrupt current crisis. Without intervention she is at risk for harming herself and/or readmission.
[2018-06-21] MEDS: topiramate 100mg tablet PO SCH (07:36)
[2018-06-21] MEDS: levetiracetam 250mg tablet PO SCH ×2 (07:36→20:53)
[2018-06-21] MEDS: duloxetine 30mg CAPSULE.DR PO SCH (07:37)
[2018-06-21] MEDS: topiramate 25mg tablet PO SCH (07:37)
[2018-06-21] MEDS: acetaminophen 325mg tablet PO PRN ×2 (07:38→17:14)
[2018-06-21] MEDS: gabapentin 300mg capsule PO SCH ×3 (07:40→20:52)
[2018-06-21] MEDS: lurasidone 20mg tablet PO SCH (07:40)
[2018-06-21] MEDS: LORazepam 1 MG tablet PO PRN ×2 (07:42→17:13)
[2018-06-21 08:00] VITALS: BP 120/84
[2018-06-21] MEDS: insulin Lispro (HumaLOG) vial - multi-dose SQ SCH ×3 (09:06→18:15)
[2018-06-21] MEDS: hydrOXYzine 25 MG tablet PO PRN (12:58)
--- NOTE | 2018-06-21 15:28 | NUR ---
DM consult: Pt with A1c 13.6. Pt admit to [facility] with major depressive disorder with recent overdose with insulin. DM ed not appropriate at this time. Pt currently on a CHO controlled diet with documented 75-100% PO intake meeting nutrient needs. [facility] 06/18. Will continue to follow. Recommendations: 1) Continue with CHO controlled diet 2) Monitor appropriateness for DM ed prior to d/c 3) Monitor need for additional bowel care 4) Weekly wts Addendum: 06/21/18 at [address] Amended: Links added.
--- NOTE | 2018-06-21 16:09 | NUR ---
NURSING PROGRESS NOTE Legal hold: 5150 Client on voluntary/involuntary status for: DTS Report received from ZACARIAS Tristan with use of SBAR[]. Why are they here: The patient has a HX of Depression. Patient lost custody of her kids due to meth use after she found her was cheating on her and patient started using meth. Patient has visitation with her youngest son at 6 hours per week. Patient's oldest son (9 years old) does not want contact. Patient is a Type I diabetic. Patient had a necrotizing fascitis on her chin which left a large scar. Patient has been very depressed and thinks of suicide daily. Patient reported to Dr Estrada that she gave herself 60 units of insulin to kill her self but it didn't work. Then patient filled 2 syringes of 100 units of insulin each to kill herself but didn't do it. Patient has been hearing voices telling "she is a piece of shit" and "your family hates you." Patient lives with her aunt. Patient continues with severe depression. Patient is a brittle diabetic who uses an insulin pump which was removed due to SI. Patient has a coccyx non healing wounds and 3 abscess' to legs and arm, which one is packed. Assessment What has happened this shift: Patient was asleep at change of shift an up for breakfast. Patient's BG was 353 prior to breakfast, and 264 prior to lunch. Patient is now on a level 5 protocol. Patient is very depressed and denies SI. Patient denies hearing voices. Patient is minimizing drug use. Patient did not go to groups today and slept instead. Patient is now getting double protein. RN placed an order for wound care consult but no response. RN cleansed and packed patient's Left thigh wound with idoform guaze. RN cleansed and dressed other 3 wounds. Patient tolerated well. Patient has kept to herself today. S/I, H/I: daily SI A/VH: auditory Sleep: 8 ADL's: Self sufficient Group attendance: No Were meds taken: Yes Any med S/E: None Mental Status Exam Appearance: WNL Eye contact: Fair Behavior: Cooperative Speech: Soft Mood: Depressed Affect: Blunted Thought process: Linear Thought Content: Getting out of depression Cognition: normal Insight: fair Judgment: fair Interventions PRN's used: None Therapeutic interventions: established rapport, 1:1 assessment with patient, provided active listening, provided a safe and therapeutic environment, provided reassurance, medication administration and education, and maintained q15m safety checks. Restraints/seclusion/emergency medication: None Justification of Continued Inpatient Treatment: The patient is very depressed and is a danger to herself, requiring medication management and a therapeutic milieu to interrupt current crisis. Without intervention she is at risk for harming herself and/or readmission.
[2018-06-21 19:00] VITALS: BP 118/76
--- NOTE | 2018-06-21 21:00 | NUR ---
Retested- blood glucose was 189
--- NOTE | 2018-06-21 21:41 | NUR ---
POC blood glucose was 66. Gave pt juice, cheese. Will retest in 15 min Addendum: 06/22/18 at 0206 by Karyn Garces RN This Blood glucose test was administered at 2040
[2018-06-21] MEDS: insulin glargine (Lantus) pen - multi-dose SQ SCH (21:47)
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
--- NOTE | 2018-06-22 02:38 | NUR ---
THE BELOW NOTE IS NOTE FOR YUSUF CHANDRA. CHARTED ON THE WRONG PATIENT.
--- NOTE | 2018-06-22 03:49 | NUR ---
NURSING PROGRESS NOTE Legal hold: 5150 Client on voluntary/involuntary status for: DTS Report received from CAN Rodriguez with use of SBAR Why are they here: The patient has a HX of Depression. Patient lost custody of her kids due to meth use after she found her was cheating on her and patient started using meth. Patient has visitation with her youngest son at 6 hours per week. Patient's oldest son (9 years old) does not want contact. Patient is a Type I diabetic. Patient had a necrotizing fascitis on her chin which left a large scar. Patient has been very depressed and thinks of suicide daily. Patient reported to Dr Estrada that she gave herself 60 units of insulin to kill her self but it didn't work. Then patient filled 2 syringes of 100 units of insulin each to kill herself but didn't do it. Patient has been hearing voices telling "she is a piece of shit" and "your family hates you." Patient lives with her aunt. Patient continues with severe depression. Patient is a brittle diabetic who uses an insulin pump which was removed due to SI. Patient has a coccyx non healing wounds and 3 abscess' to legs and arm, which one is packed. Assessment What has happened this shift: Received patient walking in sandoval at shift change. Pt was mildly anxious and wanted her night time meds early. 1:1 assessment performed at bedside. Pt denies any SI, A/VH. Pt's conversation was minimal, she just wanted her meds so she could go to bed. HS blood glucose reading @ 2040 was 66. Pt was slightly dizzy, but no other symptoms noted. Cheese and juice were administered and it raised glucose level 189. I educated pt on hypoglycemia and if she felt like she was low to inform the nurse. Pt's daily dressings were changed in AM- drsg were CDI upon assessment. Monitoring blood glucose level on 06-20-18 AM was 472, on 06-21-18 AM was 353. Lantus dose is 13 units at night, may need to adjust. Will continue to track trends. S/I, H/I: None reported or observed. Pt denies A/VH: None reported or observed. Pt denies Sleep: See sleep assessment notation ADL's: Independent Group attendance: scene shifter, no group Were meds taken: Pt medication compliant Any med S/E: None reported or observed Mental Status Exam Appearance: Clean, wearing green scrubs Eye contact: Fair Behavior: Cooperative, irritable Speech: Soft, minimal Mood: Depressed Affect: Flat Thought process: Linear Thought Content: Pt wanted her meds early so she could go to bed Cognition: A&O x4 Insight: Fair Judgment: Fair Interventions PRN's used: None Therapeutic interventions: established rapport, 1:1 assessment with patient, provided active listening, provided a safe and therapeutic environment, administered medication and monitored for side effect, maintained seizure precautions. Maintained q15min safety checks. Restraints/seclusion/emergency medication: N/A Justification of Continued Inpatient Treatment: The patient is very depressed and is a danger to herself, requiring medication management and a therapeutic milieu to interrupt current crisis. Without intervention she is at risk for harming herself and/or readmission. Addendum: 06/22/18 at 0404 by Karyn Garces RN Received report from CAN Talley with use of MARIANNE
[2018-06-22] MEDS: lurasidone 20mg tablet PO SCH (07:51)
[2018-06-22] MEDS: topiramate 100mg tablet PO SCH (07:51)
[2018-06-22] MEDS: duloxetine 30mg CAPSULE.DR PO SCH (07:51)
[2018-06-22] MEDS: levetiracetam 250mg tablet PO SCH ×2 (07:51→20:49)
[2018-06-22] MEDS: gabapentin 300mg capsule PO SCH ×3 (07:51→20:49)
[2018-06-22] MEDS: topiramate 25mg tablet PO SCH (07:51)
[2018-06-22 08:00] VITALS: BP 117/81
[2018-06-22] MEDS: hydrOXYzine 25 MG tablet PO PRN ×2 (08:12→15:28)
[2018-06-22] MEDS: naproxen sodium 220mg tablet PO PRN ×2 (08:12→15:28)
[2018-06-22] MEDS: insulin Lispro (HumaLOG) vial - multi-dose SQ SCH ×3 (09:00→18:27)
[2018-06-22] MEDS: LORazepam 1 MG tablet PO PRN (10:27)
--- NOTE | 2018-06-22 13:13 | NUR ---
1:1 DISCHARGE PLANNING SW contacted [facility] regarding pt need for psychiatric and counseling services. SW informed pt does not have managed care at [facility] and pt needs to contact [facility] to request a new primary medical home. Dinorah agreed to speak w/ Dr. Estrada to learn if he is agreeable to pt entering into neuropsych services w/ him. LAURA Lara
--- NOTE | 2018-06-22 15:53 | NUR ---
Pt c/o feeling funny, requested FSBG to be checked at 1540, BG was 64, pt refused glucagon, requested apple juice and janine crackers. Will recheck blood glucose and drop pt back down to a level 4.
--- NOTE | 2018-06-22 16:14 | NUR ---
FSBG 86, provided a milk per pt's request.
--- NOTE | 2018-06-22 16:29 | NUR ---
NURSING PROGRESS NOTE Legal hold: 5150 Client on voluntary/involuntary status for: DTS Report received from CAN Carlson with use of SBAR Why are they here: The patient has a HX of Depression. Patient lost custody of her kids due to meth use after she found her was cheating on her and patient started using meth. Patient has visitation with her youngest son at 6 hours per week. Patient's oldest son (9 years old) does not want contact. Patient is a Type I diabetic. Patient had a necrotizing fascitis on her chin which left a large scar. Patient has been very depressed and thinks of suicide daily. Patient reported to Dr Estrada that she gave herself 60 units of insulin to kill her self but it didn't work. Then patient filled 2 syringes of 100 units of insulin each to kill herself but didn't do it. Patient has been hearing voices telling "she is a piece of shit" and "your family hates you." Patient lives with her aunt. Patient continues with severe depression. Patient is a brittle diabetic who uses an insulin pump which was removed due to SI. Patient has a coccyx non healing wounds and 3 abscess' to legs and arm, left thigh is packed with Iodaform gauze. Assessment What has happened this shift: Pt up before breakfast, indicated she would like to shower, wondered when wound outside sales consultant would come to see her wounds. Explained that this RN would be changing her dressings today. Pt became slightly tearful during morning med pass, was upset because she stated that her Cymbalta was supposed to be increased but it wasn't, also wanted her meloxicam which is non-formulary here and her Ativan. Medication education provided that Aleve had been prescribed instead of meloxicam and that she has Ativan ordered but only if Atarax ineffective. Pt complained that all these changes were being made and no one was telling her, stated, "that's bullshit." Medicated with Atarax 50 mg and Aleve 220 mg at 0813 with good effect. Pt requested Ativan 1 mg for increased anxiety at 1027, requested Atarax and Aleve again at 1530. Pt did not acknowledge feeling depressed today, she was fixated on medications not being the way she wanted them. She did deny SI/HI/VH, denied AH this am but stated she did hear auditory hallucinations last night. Pt stated the voices tell her to do things like, "run," denied them telling her to harm herself or others. Cleansed wounds and changed dressings after breakfast. Right calf and left upper arm areas are nearly resolved, the left thigh is small but open, packed with less than 1 inch iodaform gauze. Coccyx ulcer is open with firm, light yellow wound bed, no s/sx infection in any of the wounds. Pt 's FSBG before breakfast was 364, decided to keep her on a level 4 protocol as pt only weighs 107 lbs and level 5 would have meant administering 40 units Humalog. Pt was unable to say how much insulin she had been getting via her pump, 29 units Humalog given. FSBG AC lunch was 322, bumped her up to a level 5 and gave 33 units Humalog. Pt c/o feeling funny at 1540, checked FSBG, it was 64. Pt refused Glucagon, requested apple juice and janine crackers, rechecked sugar afterwards, it was 86. Pt requested a milk and it was provided. Read PPD left forearm today; negative. S/I, H/I: Pt denies A/VH: Pt denied VH, denied AH today though stated she heard voices last night Sleep: Pt reports sleeping okay ADL's: Independent Group attendance: Yes Were meds taken: Yes Any med S/E: None noted or reported besides low BG from Humalog Mental Status Exam Appearance: Clean, appropriate Eye contact: Fair to good Behavior: Cooperative, irritable Speech: Clear, normal rate Mood: Anxious Affect: Anxious Thought process: Linear Thought Content: Perseverates on medications Cognition: A&O x4 Insight: Fair Judgment: Fair Interventions PRN's used: Atarax 50 mg & Aleve 220 mg @ 0813 & 1530, Ativan 1 mg @ 1027 Therapeutic interventions: 1:1 assessment, therapeutic conversation, active listening, unit procedure education, medication administration/education/monitoring, blood glucose management, wound care, Q 15 min safety checks. Restraints/seclusion/emergency medication: N/A Justification of Continued Inpatient Treatment: Patient has high levels of anxiety, she is a brittle diabetic with wounds including abscesses from IV meth use, blood sugars remain uncontrolled, she had a plan to commit suicide by insulin pump OD, she remains a danger to herself needing further medication adjustment and stabilization in a safe, therapeutic environment.
[2018-06-22 19:00] VITALS: BP 125/82
--- NOTE | 2018-06-22 20:45 | NUR ---
FSBG was 62. Pt refused glucagon. Gave pt crackers and juice per her request. Will monitor
[2018-06-22] MEDS: insulin glargine (Lantus) pen - multi-dose SQ SCH (21:00)
--- NOTE | 2018-06-22 21:40 | NUR ---
Pt's AM FSBG have been high 06-20-18 it was 472, 5- it was 353, 5- it was 364. CRN called hospitalist Dr. Doty to see if we could increase pt's HS Lantus. Received a telephone order to increase Lantus to 20 units. will reevaluate in the morning.
[2018-06-22] MEDS ORDERED: insulin glargine (Lantus) pen - multi-dose SQ ONE (21:50)
--- NOTE | 2018-06-23 04:20 | NUR ---
NURSING PROGRESS NOTE Legal hold: 5250 Exp 07/06/18 @ 2140 Client on voluntary/involuntary status for: DTS Report received from CAN Talley with use of SBAR Why are they here: The patient has a HX of Depression. Patient lost custody of her kids due to meth use after she found her was cheating on her and patient started using meth. Patient has visitation with her youngest son at 6 hours per week. Patient's oldest son (9 years old) does not want contact. Patient is a Type I diabetic. Patient had a necrotizing fascitis on her chin which left a large scar. Patient has been very depressed and thinks of suicide daily. Patient reported to Dr Estrada that she gave herself 60 units of insulin to kill her self but it didn't work. Then patient filled 2 syringes of 100 units of insulin each to kill herself but didn't do it. Patient has been hearing voices telling "she is a piece of shit" and "your family hates you." Patient lives with her aunt. Patient continues with severe depression. Patient is a brittle diabetic who uses an insulin pump which was removed due to SI. Patient has a coccyx non healing wounds and 3 abscess' to legs and arm, which one is packed. Assessment What has happened this shift: Patient was in group room eating dinner at shift change. When this RN was with roommate, pt asked if I could test her blood sugar because she felt funny. FSBG was 62, retested after treating hypoglycemia, FSBG was 177. When asked how she was doing since her 5150 was converted, she stated she was upset. Pt reports her depression 10/10 and anxiety 10/10. Pt states she isnt getting the help she needs here and doesn't feel she needs to go to rehab. I have tried that several other times and it hasn't worked. Pt denies SI, A/VH. Pt states she misses her children and her 9 year old will not speak to her. Pt appears hopeless. I just want to go home. When asked if she had a support system pt stated her family probably doesn't want to support her anymore. Pt is aware she has made mistakes, but states she cant forgive herself. Pts HS Lantus was increased to [address] Doty is going to review chart in A.M and decide on management. S/I, H/I: None reported or observed. Pt denies A/VH: None reported or observed. Pt denies Sleep: See sleep assessment notation ADL's: Independent Group attendance: mini shifter, no group Were meds taken: Pt medication compliant Any med S/E: None reported or observed Mental Status Exam Appearance: Clean, wearing green scrubs Eye contact: Fair Behavior: Cooperative, irritable Speech: Clear, normal rate Mood: Depressed Affect: Flat Thought process: Linear Thought Content: Pt wants to see children Cognition: A&O x4 Insight: Fair Judgment: Fair Interventions PRN's used: None Therapeutic interventions: established rapport, 1:1 assessment with patient, provided active listening, provided a safe and therapeutic environment, administered medication and monitored for side effect, maintained seizure precautions. Maintained q15min safety checks. Restraints/seclusion/emergency medication: N/A Justification of Continued Inpatient Treatment: The patient is very depressed and is a danger to herself, requiring medication management and a therapeutic milieu to interrupt current crisis. Without intervention she is at risk for harming herself and/or readmission.
[2018-06-23 07:02] LABS: BASOPHILS # (AUTO) 0.1 X10'3 (0-0.2); BASOPHILS % (AUTO) 1.2 % (0-1); EOSINOPHILS # (AUTO) 0.2 X10'3 (0-0.9); EOSINOPHILS % (AUTO) 4.1 % (0-6); HEMATOCRIT 32.5 % (35.0-45.0); HEMOGLOBIN 10.2 g/dl (12.0-16.0); LYMPHOCYTES # (AUTO) 1.3 X10'3 (1.1-4.8); LYMPHOCYTES % (AUTO) 30.7 % (21-51); MEAN CORPUSCULAR HEMOGLOBIN 20.5 PG (27.0-31.0); MEAN CORPUSCULAR HGB CONC 31.5 g/dL (33.0-36.5); MEAN CORPUSCULAR VOLUME 65.1 FL (78-98); MEAN PLATELET VOLUME 7.9 FL (7.4-10.4); MONOCYTES # (AUTO) 0.3 X10'3 (0-0.9); MONOCYTES % (AUTO) 7.8 % (2-12); NEUTROPHILS # (AUTO) 2.4 X10'3 (1.8-7.7); NEUTROPHILS % (AUTO) 56.2 % (42-75); PLATELET COUNT 289 X10'3 (140-440); RED CELL DISTRIBUTION WIDTH 16.7 % (11.5-14.5); WHITE BLOOD COUNT 4.2 X10'3 (4.5-11.0)
--- NOTE | 2018-06-23 07:31 | NUR ---
Checked pt's FSBG, it was 370, pt stated she had drank some coffee, asked her if it was just coffee with Splenda or something, pt admitted she had put hot chocolate in her coffee. Stressed how important it was for pt to not eat/drink anything with sugar in it before am blood sugar check. Pt stated she told another nurse she needed her blood sugar checked and the nurse had said "okay" and then not done it. Explained that I was her nurse and so I was the one who would check her sugars, also explained that breakfast did not come out until around 0800 and I did not wish to check her sugar too soon before breakfast. Emphasized how unstable her blood sugars are how, dangerous this is and the need for accurate monitoring. Pt stated that her coffee is the highlight of her day and she couldn't wait any longer to drink it. Pt also went on to say that if she could check her own sugar then this wouldn't have happened. Reminded pt that her A1C was 13.6 upon admission indicating that she was not adequately managing her sugars in the community. Pt then stated, "well, okay, I guess that just makes me a piece of shit! I'm just not going to eat breakfast then!" Upon this nurse leaving the room, pt slammed her door shut. Upon review of nurse's notes, noted that pt's BG had dropped after change of shift last evening. BG before dinner last night was 134, no correctional insulin was given. Pt ate nearly 100% of her dinner equaling 57 grams of carbs. She was given only 11 units Humalog after dinner. When went to give her the 11 units, had to wait as pt was in the bathroom. Pt stayed in the bathroom for 10-15 minutes while this nurse was waiting outside her room (pt unaware.) BG dropped to 62 units after change of shift and noc RN had to treat for hypoglycemia. Will monitor pt's activity after meals to determine if she is spending long periods of time in the bathroom after meals to rule out possibility of purging. CHRISTIAN Lang notified of pt's behaviors and instability of blood glucose.
[2018-06-23 08:00] VITALS: BP 114/70
[2018-06-23] MEDS: topiramate 100mg tablet PO SCH (08:29)
[2018-06-23] MEDS: gabapentin 300mg capsule PO SCH ×3 (08:30→20:39)
[2018-06-23] MEDS: topiramate 25mg tablet PO SCH (08:30)
[2018-06-23] MEDS: hydrOXYzine 25 MG tablet PO PRN ×2 (08:31→15:37)
[2018-06-23] MEDS: lurasidone 20mg tablet PO SCH (08:31)
[2018-06-23] MEDS: levetiracetam 250mg tablet PO SCH ×2 (08:31→20:56)
[2018-06-23] MEDS: naproxen sodium 220mg tablet PO PRN ×3 (08:31→20:40)
[2018-06-23] MEDS: duloxetine 30mg CAPSULE.DR PO SCH (08:32)
--- NOTE | 2018-06-23 09:03 | NUR ---
Pt drank hot chocolate before finger stick. Addendum: 06/23/18 at 0904 by Marielle Garcia RN (Lee) Amended: Links added.
--- NOTE | 2018-06-23 09:12 | NUR ---
Pt ate 100% of breakfast = 67 grams of carbs. Per nutritional adjustment tool, give 13 units Humalog. BG was 370 this am before bkfst though pt admitted to drinking hot chocolate before finger stick. Using 370 BG, would need to give 16 units correctional humalog+ 29 units total per level 4 scale. Paged hospitalist for advice. Dr Ayala ordered to give 20 units Humalog instead of 29 units.
[2018-06-23] MEDS ORDERED: insulin Lispro (HumaLOG) vial - multi-dose SQ ONE (09:20)
[2018-06-23 09:45] LABS: PLATELET ESTIMATE NORMAL
[2018-06-23 09:46] LABS: ANISOCYTOSIS 1+; HYPOCHROMASIA 1+; MICROCYTOSIS 2+; SCHISTOCYTES FEW
[2018-06-23] MEDS: nicotine 14mg patch - 24hr TD SCH (10:17)
[2018-06-23] MEDS: LORazepam 1 MG tablet PO PRN ×2 (10:19→17:18)
[2018-06-23] MEDS: insulin Lispro (HumaLOG) vial - multi-dose SQ SCH ×2 (14:03→18:47)
--- NOTE | 2018-06-23 18:06 | NUR ---
NURSING PROGRESS NOTE Legal hold: 5250 Exp 07/06/18 @ 2140 Client on voluntary/involuntary status for: DTS Report received from CAN Carlson with use of SBAR Why are they here: The patient has a HX of Depression. Patient lost custody of her kids due to meth use after she found her was cheating on her and patient started using meth. Patient has visitation with her youngest son at 6 hours per week. Patient's oldest son (9 years old) does not want contact. Patient is a Type I diabetic. Patient had a necrotizing fascitis on her chin which left a large scar. Patient has been very depressed and thinks of suicide daily. Patient reported to Dr Estrada that she gave herself 60 units of insulin to kill her self but it didn't work. Then patient filled 2 syringes of 100 units of insulin each to kill herself but didn't do it. Patient has been hearing voices telling "she is a piece of shit" and "your family hates you." Patient lives with her aunt. Patient continues with severe depression. Patient is a brittle diabetic who uses an insulin pump which was removed due to SI. Patient has a coccyx non healing wounds and 3 abscess' to legs and arm, which one is packed. Assessment What has happened this shift: Pt would not rate her depression this morning, was focused on medications and not wanting to be here. Pt became tearful during assessment stating that she has no control over things here, she can't go outside and drink her coffee and smoke a cigarette, she can't check her own sugar and drink her coffee and hot chocolate as early as she wants to, she can't go to a meeting. Pt expressed frustration that she will be unable to plan for her son's birthday while she is in here. (His birthday is not until the of this month) Pt wants to have her coffee as soon as she wakes up and not have to wait around for her sugar to be checked. Asked pt if she was checking her sugar at home, she replied, "sometimes I do....I'm having a meltdown today, I don't want to have a meltdown here, you'll just make me stay longer." QIAN Hung entered pt's room during her tearful episode and stayed and conversed with pt. Pt later denied SI/HI/AH/VH, pt stated she would be cooperative with not eating or drinking before accuchecks. Obtained order for Nicotine 14 mg patch and placed on left posterior shoulder. Discussed am accucheck situation with insulation cupola charger who will speak with noc shift insulation cupola charger about checking pt's accucheck earlier than 0700 if pt gets up early and wants to eat or drink something. Pt interacted more with staff and peers today, observed laughing and smiling during afternoon group. Pt conversed more with this RN, seems to be developing some trust for staff. Pt can be demanding at times, makes many requests though expresses appreciation when requests are met. FSBG AC lunch was 143, AC dinner was 119. Pt requested prn Atarax 50 mg for anxiety at 0830 & 1537, requested prn Ativan at 1019 and 1720, requested prn Aleve 220 mg for back pain at 0830 & 1249. Pt asked this RN to request from PA that frequency of prn anxiety meds be changed from Q 6H to Q 4H, PA did not wish to adjust meds at this time, pt notified. Pt was present in room when MRSA education being provided to roommate. 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 Pt c/o hemorrhoid discomfort late in the afternoon, stated that stool was soft, she is not constipated but she can feel a bump and a small amount of jozef blood on toilet paper. Pt c/o toilet paper irritating the bump requested wipes. Provided incontinent care wipes with dimethicone, instructed pt not to put them in the toilet and to let us know if she needs something further such as a hemorrhoid cream. S/I, H/I: Pt denies A/VH: Pt denies Sleep: See sleep assessment notation ADL's: Independent Group attendance: Yes Were meds taken: Yes Any med S/E: None reported or observed Mental Status Exam Appearance: Clean, dressed in street clothes Eye contact: Good Behavior: Cooperative, somewhat needy/demanding at times Speech: Clear, normal rate Mood: anxious Affect: depressed, anxious Thought process: organized Thought Content: Wants to be discharged, fixates on anxiety and anxiety medications, feels she has no control over her life here on the unit and at home as well. Cognition: A&O x4 Insight: Fair Judgment: Fair Interventions PRN's used: Atarax, Ativan, Aleve Therapeutic interventions: 1:1 assessment, active listening, therapeutic conversation and establishment of rapport, medication administration/education/monitoring, encouragement to attend groups, MRSA education, diabetes education, Q 15min safety checks. Restraints/seclusion/emergency medication: N/A Justification of Continued Inpatient Treatment: The patient is depressed and anxious, requires further medication adjustment and management in a safe therapeutic milieu to interrupt current crisis. Without intervention she is at risk for harming herself and/or readmission.
[2018-06-23 19:00] VITALS: BP 122/82
--- NOTE | 2018-06-23 21:35 | NUR ---
HS LANTUS ORDERS: Per Dr. Doty client will be given 30 units of Lantus SQ at night. This dose is not to be adjusted.
--- NOTE | 2018-06-24 00:05 | NUR ---
NURSING PROGRESS NOTE Legal hold: 5250 Exp 07/06/18 @ 2140 Client on voluntary/involuntary status for: DTS Report received from CAN Talley with use of SBAR Why are they here: The patient has a HX of Depression. Patient lost custody of her kids due to meth use after she found her was cheating on her and patient started using meth. Patient has visitation with her youngest son at 6 hours per week. Patient's oldest son (9 years old) does not want contact. Patient is a Type I diabetic. Patient had a necrotizing fascitis on her chin which left a large scar. Patient has been very depressed and thinks of suicide daily. Patient reported to Dr Estrada that she gave herself 60 units of insulin to kill her self but it didn't work. Then patient filled 2 syringes of 100 units of insulin each to kill herself but didn't do it. Patient has been hearing voices telling "she is a piece of shit" and "your family hates you." Patient lives with her aunt. Patient continues with severe depression. Patient is a brittle diabetic who uses an insulin pump which was removed due to SI. Patient has a coccyx non healing wounds and 3 abscess' to legs and arm, which one is packed. Assessment What has happened this shift: The patient was seen at bedside for 1:1 assessment. She reports that she has a home in [place], but lives in [place]. When I'm there, I have no ability to go anywhere. "I lost my license, so I can't drive. Whether here or there, I have no ability to go anywhere. I have no freedom." The patient states that she feels hopeless and helpless. "I can't even see my children." The patient says that meth is her problem, but she won't do rehab, because it fails. The patient was converted to 5250, and says she will go to the hearing, "I'll beat it." The patient's FSBG at HS was 191. MD Doty was contacted and Lantus was changed to 30u SQ at HS, from last night's 20u. The patient's BG this AM was over 300. The patient reports that she's still depressed, but is denying SI. She flatly denies AV/H, but states she hears voices telling her she's no good, and should just kill herself. The patient took her HS meds, including Aleve for generalized pain, then went to bed. S/I, H/I: Reports she thinks of suicide all the time. A/VH: Denies, but has audio hallucinations. Sleep: "Not good sleep." ADL's: Independent Group attendance: No groups at night. Were meds taken: Yes Any med S/E: None reported or observed Mental Status Exam Appearance: Clean, reddish hair, wearing street clothes. Eye contact: Fair Behavior: Cooperative, irritable Speech: Normal volume rate/rhythm. Mood: Depressed Affect: Flat Thought process: Linear, goal directed. Thought Content: Preoccupied with seeing her children. Cognition: A&O x4 Insight: Fair Judgment: Fair Interventions PRN's used: Aleve. Therapeutic interventions: established rapport, 1:1 assessment with patient, provided active listening, provided a safe and therapeutic environment, administered medication and monitored for side effect, maintained seizure precautions. Maintained q15min safety checks. Restraints/seclusion/emergency medication: N/A Justification of Continued Inpatient Treatment: The patient is very depressed and is a danger to herself, requiring medication management and a therapeutic milieu to interrupt current crisis. Without intervention she is at risk for harming herself and/or readmission.
[2018-06-24 08:00] VITALS: BP 111/80
[2018-06-24] MEDS: lurasidone 20mg tablet PO SCH (08:00)
[2018-06-24] MEDS: duloxetine 30mg CAPSULE.DR PO SCH (08:00)
[2018-06-24] MEDS: naproxen sodium 220mg tablet PO PRN ×2 (08:01→16:39)
[2018-06-24] MEDS: topiramate 25mg tablet PO SCH (08:01)
[2018-06-24] MEDS: levetiracetam 250mg tablet PO SCH ×2 (08:01→20:38)
[2018-06-24] MEDS: gabapentin 300mg capsule PO SCH ×3 (08:01→20:38)
[2018-06-24] MEDS: topiramate 100mg tablet PO SCH (08:01)
[2018-06-24] MEDS: LORazepam 1 MG tablet PO PRN ×3 (08:10→19:25)
[2018-06-24] MEDS: nicotine 14mg patch - 24hr TD SCH (08:49)
[2018-06-24] MEDS: insulin Lispro (HumaLOG) vial - multi-dose SQ SCH ×2 (09:00→14:05)
[2018-06-24] MEDS: dextrose ORAL solution 15 GM/59 ML bottle PO PRN (16:21)
--- NOTE | 2018-06-24 17:02 | NUR ---
NURSING PROGRESS NOTE Legal hold: 5250 Exp 07/06/18 @ 2140 Client on voluntary/involuntary status for: DTS Report received from Jerry ADAMES with use of SBAR Why are they here: The patient has a HX of Depression. Patient lost custody of her kids due to meth use after she found her was cheating on her and patient started using meth. Patient has visitation with her youngest son at 6 hours per week. Patient's oldest son (9 years old) does not want contact. Patient is a Type I diabetic. Patient had a necrotizing fascitis on her chin which left a large scar. Patient has been very depressed and thinks of suicide daily. Patient reported to Dr Estrada that she gave herself 60 units of insulin to kill her self but it didn't work. Then patient filled 2 syringes of 100 units of insulin each to kill herself but didn't do it. Patient has been hearing voices telling "she is a piece of shit" and "your family hates you." Patient lives with her aunt. Patient continues with severe depression. Patient is a brittle diabetic who uses an insulin pump which was removed due to SI. Patient has a coccyx non healing wounds and 3 abscess' to legs and arm, which one is packed. Assessment What has happened this shift: Received pt in bed sleeping with normal respirations and in no distress. Pt awoke wanting her BS done so she could have coffee. BS @ 0700 - 132. She remains focused on medications and not wanting to be here. Pt left AM group and stated that another pt was saying sexually inappropriate things that were disturbing her. She returned to her room and responded well to verbal intervention. Wound on left arm, left calf, right thigh and coccyx cleaned with NS and dressings changed. BS @ 1250 - 213. [facility] and [facility]. Given prn Alleve X2 during this shift for mid back pain with good effect. Given prn ativan x2 during this shift for increasing anxiety, also with good effect. Pt mood is depressed with sad affect and wants to leave and get her affairs in order. Pt not happy about having to move rooms for new admit. She is demanding and makes many requests, but is appreciative of staff efforts and responds positively to attention. At 1545 pt reports not feeling well and asked to have BS taken. BS @ 1550 - 46. Pt given 30G oral glucose and layed down in bed. BS @ 1618 - 123. Pt also given two cheese sticks at 1635. S/I, H/I: Pt denies A/VH: Pt denies Sleep: 7.75 hrs last night. Rested after meals ADL's: Independent Group attendance: Yes Were meds taken: Yes Any med S/E: None reported or observed Mental Status Exam Appearance: Clean, dressed in street clothes Eye contact: Good Behavior: Cooperative, somewhat needy/demanding at times Speech: Clear, normal rate Mood: anxious Affect: depressed, anxious Thought process: organized Thought Content: Wants to be discharged, fixates on anxiety and loss of control Cognition: A&O x4 Insight: Fair Judgment: Fair Interventions PRN's used: Ativan, Aleve, Oral glucose Therapeutic interventions: 1:1 assessment, active listening, therapeutic conversation and establishment of rapport, medication administration/education/monitoring, encouragement to attend groups, MRSA education, diabetes education, Q 15min safety checks. Restraints/seclusion/emergency medication: N/A Justification of Continued Inpatient Treatment: The patient is depressed and anxious, requires further medication adjustment and management in a safe therapeutic milieu to interrupt current crisis. Without intervention she is at risk for harming herself and/or readmission.
[2018-06-24] MEDS ORDERED: insulin Lispro (HumaLOG) vial - multi-dose SQ ONE (18:40)
[2018-06-24 18:57] VITALS: BP 100/98
--- NOTE | 2018-06-24 19:08 | NUR ---
6 units insulin administered instead of protocol per MD order pt BS 46 and 81 on days shift
[2018-06-24 20:00] VITALS: BP 121/82
--- NOTE | 2018-06-24 20:00 | NUR ---
10 units Lantus given per x1 order instead of 30 units per previous daily order.
[2018-06-24] MEDS ORDERED: insulin glargine (Lantus) pen - multi-dose SQ ONE (21:00)
[2018-06-24] MEDS ORDERED: insulin glargine (Lantus) pen - multi-dose SQ SCH (21:00)
--- NOTE | 2018-06-25 00:06 | NUR ---
NURSING PROGRESS NOTE Legal hold: 5250 Exp 07/06/18 @ 2140 Client on voluntary/involuntary status for: DTS Report received from Andrzej ADAMES with use of SBAR Why are they here: The patient has a HX of Depression. Patient lost custody of her kids due to meth use after she found her was cheating on her and patient started using meth. Patient has visitation with her youngest son at 6 hours per week. Patient's oldest son (9 years old) does not want contact. Patient is a Type I diabetic. Patient had a necrotizing fascitis on her chin which left a large scar. Patient has been very depressed and thinks of suicide daily. Patient reported to Dr Estrada that she gave herself 60 units of insulin to kill her self but it didn't work. Then patient filled 2 syringes of 100 units of insulin each to kill herself but didn't do it. Patient has been hearing voices telling "she is a piece of shit" and "your family hates you." Patient lives with her aunt. Patient continues with severe depression. Patient is a brittle diabetic who uses an insulin pump which was removed due to SI. Patient has a coccyx non healing wounds and 3 abscess' to legs and arm, which one is packed. Assessment What has happened this shift: Pt in room at start of shift. Discussed with pt MD order for 6 units regular insulin and 10 units Lantus at HS. Pt agreeable. Pt spent some time in group room seemed to be socializing well with other pts. Later 1:1 in her in room pt stated another pt was saying inappropriate things to her and making her feel uncomfortable. Pt encouraged to let staff know right away if this happened again so it could be dealt with. Pt said her depression is much better and denies SI. Pt said she really wants to go home. She said she "feels out of control here" because she is unable to go outside for a cigarette or go get a [employer] coffee. Pt says the groups are helping her. Encouraged to keep participating. Pt has been on antidepressants prescribed by her primary physician but has not been seeing any mental health healthcare network pricing consultant as an outpatient. Pt states she would be interested in followup out pt mental health care when she is discharged. Assured that that could be arranged for her before she leaves. S/I, H/I: Pt denies A/VH: Pt denies Sleep: 7.75 hrs last night. Rested after meals ADL's: Independent Group attendance: Yes Were meds taken: Yes Any med S/E: None reported or observed Mental Status Exam Appearance: Clean, dressed in street clothes Eye contact: Good Behavior: Cooperative Speech: Clear, normal rate Mood: anxious Affect: depressed, anxious Thought process: organized Thought Content: Wants to be discharged, fixates on anxiety and loss of control Cognition: A&O x4 Insight: Fair Judgment: Fair Interventions PRN's used: Ativan Therapeutic interventions: 1:1 assessment, active listening, therapeutic conversation and establishment of rapport, medication administration/education/monitoring, encouragement to attend groups, MRSA education, diabetes education, Q 15min safety checks. Restraints/seclusion/emergency medication: N/A Justification of Continued Inpatient Treatment: The patient is depressed and anxious, requires further medication adjustment and management in a safe therapeutic milieu to interrupt current crisis. Without intervention she is at risk for harming herself and/or readmission.
[2018-06-25] MEDS: traZODone 50mg tablet PO PRN ×2 (01:00→20:53)
[2018-06-25] MEDS: topiramate 100mg tablet PO SCH (07:13)
[2018-06-25] MEDS: topiramate 25mg tablet PO SCH (07:13)
[2018-06-25] MEDS: levetiracetam 250mg tablet PO SCH ×2 (07:13→20:52)
[2018-06-25] MEDS: gabapentin 300mg capsule PO SCH ×3 (07:13→20:52)
[2018-06-25] MEDS: LORazepam 1 MG tablet PO PRN ×3 (07:13→19:31)
[2018-06-25] MEDS: duloxetine 30mg CAPSULE.DR PO SCH (07:13)
[2018-06-25] MEDS: nicotine 14mg patch - 24hr TD SCH (07:14)
[2018-06-25 08:00] VITALS: BP 132/88
[2018-06-25] MEDS: lurasidone 20mg tablet PO SCH (08:00)
[2018-06-25] MEDS: insulin Lispro (HumaLOG) vial - multi-dose SQ SCH ×3 (08:32→19:00)
--- NOTE | 2018-06-25 14:11 | NUR ---
DM consult: Pt with A1c 13.6, patient seen at bedside today to provide written DM education handout with verbal review and referral to outpatient DM education class. Patient reports h/o gastroparesis for years but only takes reglan as needed during "flare ups," states she has been off track and is working on finding a care provider for her DM when she is discharged. Patient has had chronic wound to left thigh and coccyx that she sees outpatient wound care for. She eats high protein at home and wants a protein smoothie while here, recommend strawberry high protein smoothie with Landon twice a day with breakfast and lunch to aid in wound heal. Verbally discussed eating protein for wound heal, patient is receiving double protein already. Verbally discussed foods to avoid with gastroparesis. Good appetite, eating 100% of meals. Will continue to follow. Recommendations: 1) Continue with CHO controlled diet 2) Send Landon High protein smoothie BID with breakfast and lunch 3) Monitor need for additional bowel care 4) Weekly wts Addendum: 06/25/18 at [address] Amended: Links added.
--- NOTE | 2018-06-25 16:41 | NUR ---
NURSING PROGRESS NOTE Legal hold: 5250 - Upheld today Client on voluntary/involuntary status for: DTS Report received from ZACARIAS Rico with use of SBAR Why are they here: The patient has a HX of Depression. Patient lost custody of her kids due to meth use after she found her was cheating on her and patient started using meth. Patient has visitation with her youngest son at 6 hours per week. Patient's oldest son (9 years old) does not want contact. Patient is a Type I diabetic. Patient had a necrotizing fascitis on her chin which left a large scar. Patient has been very depressed and thinks of suicide daily. Patient reported to Dr Estrada that she gave herself 60 units of insulin to kill her self but it didn't work. Then patient filled 2 syringes of 100 units of insulin each to kill herself but didn't do it. Patient has been hearing voices telling "she is a piece of shit" and "your family hates you." Patient lives with her aunt. Patient continues with severe depression. Patient is a brittle diabetic who uses an insulin pump which was removed due to SI. Patient has a coccyx non healing wounds and 3 abscess' to legs and arm, which one is packed. Assessment What has happened this shift: Awake upon change of shift assessment and staff introduction. Patient presented as unhappy due to being in the hospital "when what I really need is to be home planning a birthday democrat for my son. You don't understand. this is more than a birthday democrat to me. I only see him six hours a week. I have very little control over what I get to do." When asked what brought here into the hospital, patient responded "I tried to kill myself. I thought I wanted to ." When asked about her feelings to end her life at the present time patient responded "I think about it." Mood lability noted throughout the day as evidenced by crying to staff stating "I just want to go home." Minutes later patient will seek out staff to admit needing to stay in the hospital "because I have no services set up for me on the outside." Asked to speak to her Global Cto Anabell. Anabell met with patient to review follow-up plans. Asked to speak with sand analyst "I need to have more protein snacks available to me. I need hard boiled eggs." Alisia, Travel Manager here to speak with patient. 5250 Hearing held today. Patient chose not to contest her hearing. Afterwards, when 5250 was upheld, patient cried, stating "I really need to go home." Explained to patient that she could be held in the hospital up to 11 more days, or she could be discharged earlier, depending upon the decision of here doctor. Patient appeared comforted by this information. All dressing changes performed as ordered. Diabetic protocol followed with patient at Level 3. S/I, H/I: Pt denies A/VH: Pt denies Sleep: See sleep assessment notation ADL's: Independent Group attendance: Yes Were meds taken: Yes Any med S/E: None reported or observed Mental Status Exam Appearance: Clean, dressed in street clothes Eye contact: Good Behavior: Cooperative, somewhat needy/demanding at times Speech: Clear, normal rate Mood: anxious Affect: depressed, anxious Thought process: organized Thought Content: Wants to be discharged, fixates on anxiety and anxiety medications, feels she has no control over her life here on the unit and at home as well. Cognition: A&O x4 Insight: Fair Judgment: Fair Interventions PRN's used: Atarax, Ativan, Aleve Therapeutic interventions: 1:1 assessment, active listening, therapeutic conversation and establishment of rapport, medication administration/education/monitoring, encouragement to attend groups, MRSA education, diabetes education, Q 15min safety checks. Restraints/seclusion/emergency medication: N/A Justification of Continued Inpatient Treatment: The patient is depressed and anxious, requires further medication adjustment and management in a safe therapeutic milieu to interrupt current crisis. Without intervention she is at risk for harming herself and/or readmission.
[2018-06-25] MEDS: naproxen sodium 220mg tablet PO PRN (19:31)
[2018-06-25 20:00] VITALS: BP 136/92
[2018-06-25] MEDS ORDERED: insulin glargine (Lantus) pen - multi-dose SQ SCH (21:00)
--- NOTE | 2018-06-25 23:31 | NUR ---
NURSING PROGRESS NOTE Legal hold: 5250 - Upheld today Client on voluntary/involuntary status for: DTS Report received from ZACARIAS Florentino with use of SBAR Why are they here: The patient has a HX of Depression. Patient lost custody of her kids due to meth use after she found her was cheating on her and patient started using meth. Patient has visitation with her youngest son at 6 hours per week. Patient's oldest son (9 years old) does not want contact. Patient is a Type I diabetic. Patient had a necrotizing fascitis on her chin which left a large scar. Patient has been very depressed and thinks of suicide daily. Patient reported to Dr Estrada that she gave herself 60 units of insulin to kill her self but it didn't work. Then patient filled 2 syringes of 100 units of insulin each to kill herself but didn't do it. Patient has been hearing voices telling "she is a piece of shit" and "your family hates you." Patient lives with her aunt. Patient continues with severe depression. Patient is a brittle diabetic who uses an insulin pump which was removed due to SI. Patient has a coccyx non healing wounds and 3 abscess' to legs and arm, which one is packed. Assessment What has happened this shift: Pt up in group room for snack. 1:1 in room pt stated she feels harassed by one of the male pts. She c/o this pt yesterday. Encouraged again as she was yesterday to let staff know when he does any inappropriate behaviors. All staff present tonight aware and will monitor, Pt did not return to common areas rest of shift. Dr. Sarah ordered 15 units Lantus QHS. Lantus to be adjusted per protocol level 3. S/I, H/I: Pt denies A/VH: Pt denies Sleep: sleeping at this time ADL's: Independent Group attendance: Yes Were meds taken: Yes Any med S/E: None reported or observed Mental Status Exam Appearance: Clean, dressed in street clothes Eye contact: Good Behavior: Cooperative, somewhat needy/demanding at times Speech: Clear, normal rate Mood: anxious Affect: depressed, anxious Thought process: organized Thought Content: Wants to be discharged, fixates on anxiety and anxiety medications, feels she has no control over her life here on the unit and at home as well. Cognition: A&O x4 Insight: Fair Judgment: Fair Interventions PRN's used: Ativan, Aleve and Trazodone Therapeutic interventions: 1:1 assessment, active listening, therapeutic conversation and establishment of rapport, medication administration/education/monitoring, encouragement to attend groups, MRSA education, diabetes education, Q 15min safety checks. Restraints/seclusion/emergency medication: N/A Justification of Continued Inpatient Treatment: The patient is depressed and anxious, requires further medication adjustment and management in a safe therapeutic milieu to interrupt current crisis. Without intervention she is at risk for harming herself and/or readmission.
[2018-06-26 07:14] VITALS: BP 99/59
[2018-06-26] MEDS: naproxen sodium 220mg tablet PO PRN ×2 (07:17→20:03)
[2018-06-26] MEDS: duloxetine 30mg CAPSULE.DR PO SCH ×2 (07:17→13:15)
[2018-06-26] MEDS: topiramate 100mg tablet PO SCH (07:17)
[2018-06-26] MEDS: levetiracetam 250mg tablet PO SCH ×2 (07:17→20:55)
[2018-06-26] MEDS: topiramate 25mg tablet PO SCH (07:18)
[2018-06-26] MEDS: LORazepam 1 MG tablet PO PRN ×3 (07:18→20:03)
[2018-06-26] MEDS: gabapentin 300mg capsule PO SCH ×3 (07:18→20:56)
[2018-06-26] MEDS: nicotine 14mg patch - 24hr TD SCH (07:20)
[2018-06-26] MEDS: lurasidone 20mg tablet PO SCH (08:36)
[2018-06-26] MEDS: insulin Lispro (HumaLOG) vial - multi-dose SQ SCH ×3 (08:39→18:05)
--- NOTE | 2018-06-26 14:52 | NUR ---
reassessment: Pt PO 100% meals w/ ONS meeting needs. GLU 410 today on level 3 coverage down from level 4 but per hot metal charger MD adjusting Lantus dose and pt to increase at least 1-2 levels today as well. LBM 5/6. Will continue to monitor. Recommendations: 1) Continue with CHO controlled diet 2) Send [place] High protein smoothie BID with breakfast and lunch 3) Monitor need for additional bowel care 4) Weekly wts Addendum: 06/26/18 at [address] Amended: Links added.
--- NOTE | 2018-06-26 16:09 | NUR ---
NURSING PROGRESS NOTE Legal hold: 5250 Client on involuntary status for: DTS Report received from ZACARIAS Tristan with use of SBAR Why are they here: The patient has a HX of Depression. Patient lost custody of her kids due to meth use after she found her was cheating on her and patient started using meth. Patient has visitation with her youngest son at 6 hours per week. Patient's oldest son (9 years old) does not want contact. Patient is a Type I diabetic. Patient had a necrotizing fascitis on her chin which left a large scar. Patient has been very depressed and thinks of suicide daily. Patient reported to Dr Estrada that she gave herself 60 units of insulin to kill her self but it didn't work. Then patient filled 2 syringes of 100 units of insulin each to kill herself but didn't do it. Patient has been hearing voices telling "she is a piece of shit" and "your family hates you." Patient lives with her aunt. Patient continues with severe depression. Patient is a brittle diabetic who uses an insulin pump which was removed due to SI. Patient has a coccyx non healing wounds and 3 abscess' to legs and arm, which one is packed. Assessment What has happened this shift: Asleep upon change of shift observation. Awakened at 0655, came to staff and asked for her blood sugar to be taken "so I can drink some coffee." Blood sugar = 240. Patient in good spirits this AM. Talking easily with staff. States "I've made up my mind I'm leaving on Monday. I need to get home and get my life together." After breakfast, patient sat with staff in a casual manner and talked about her life. 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 Now that's never going to happen. I can't have any more children. I'm never going to get again. I'm a failure as a ." Unable to verbalize any positives in her life so far except the of her sons 'but even that has been taken away from me by the woman my ." Presents as depressed with limited hope for the future."I'm pretty sure I'm not going to live very long with all that I've got wrong with me." At the same time, is concerned about the diabetic wounds on her body stating "I don't want to lose a limb. I need to heal." All dressing changes performed as ordered. Diabetic protocol followed with patient at Level 3. S/I, H/I: Pt denies A/VH: Pt denies Sleep: Small naps ADL's: Independent Group attendance: Yes Were meds taken: Yes Any med S/E: None reported or observed Mental Status Exam Appearance: Clean, dressed in street clothes Eye contact: Good Behavior: Cooperative, somewhat needy/demanding at times Speech: Clear, normal rate Mood: anxious Affect: depressed, anxious Thought process: organized Thought Content: Wants to be discharged, fixates on anxiety and anxiety medications, feels she has no control over her life here on the unit and at home as well. Cognition: A&O x4 Insight: Fair Judgment: Fair Interventions PRN's used: Salvador Ramos Therapeutic interventions: 1:1 assessment, active listening, therapeutic conversation and establishment of rapport, medication administration/education/monitoring, encouragement to attend groups, MRSA education, diabetes education, Q 15min safety checks. Restraints/seclusion/emergency medication: N/A Justification of Continued Inpatient Treatment: The patient is depressed and anxious, requires further medication adjustment and management in a safe therapeutic milieu to interrupt current crisis. Without intervention she is at risk for harming herself and/or readmission.
[2018-06-26 20:06] VITALS: BP 122/80
[2018-06-26] MEDS: traZODone 50mg tablet PO PRN (20:56)
[2018-06-26] MEDS ORDERED: insulin glargine (Lantus) pen - multi-dose SQ SCH (21:00)
--- NOTE | 2018-06-27 00:08 | NUR ---
NURSING PROGRESS NOTE Legal hold: 5250 Client on involuntary status for: DTS Report received from ZACARIAS Talley with use of SBAR Why are they here: The patient has a HX of Depression. Patient lost custody of her kids due to meth use after she found her was cheating on her and patient started using meth. Patient has visitation with her youngest son at 6 hours per week. Patient's oldest son (9 years old) does not want contact. Patient is a Type I diabetic. Patient had a necrotizing fascitis on her chin which left a large scar. Patient has been very depressed and thinks of suicide daily. Patient reported to Dr Estrada that she gave herself 60 units of insulin to kill her self but it didn't work. Then patient filled 2 syringes of 100 units of insulin each to kill herself but didn't do it. Patient has been hearing voices telling "she is a piece of shit" and "your family hates you." Patient lives with her aunt. Patient continues with severe depression. Patient is a brittle diabetic who uses an insulin pump which was removed due to SI. Patient has a coccyx non healing wounds and 3 abscess' to legs and arm, which one is packed. Assessment What has happened this shift: Pt lying on bed awake at start of shift. Appears fatigued. Pt continued from yesterday c/o another pt on the unit that makes her feel uncomfortable. Declined any help by staff in resolving the situation "Just makes it worse" Also c/o something that happened in group pt wrote a letter about her feelings which the pt perceived was rejected by the stove bottom worker so pt threw the letter away. Pt recounted the content of the letter and was able to accept compliment about her insight. She seemed genuinely pleased and comforted by the idea there was some kind of misunderstanding between her and the professor of social work. Blood sugar 59 at 1950 79 at 2005 after snack 172 at 2034 S/I, H/I: Pt denies A/VH: Pt denies Sleep: sleeping at this time ADL's: Independent Group attendance: Yes Were meds taken: Yes Any med S/E: None reported or observed Mental Status Exam Appearance: Clean, dressed in street clothes Eye contact: Good Behavior: Cooperative, somewhat needy/demanding at times Speech: Clear, normal rate Mood: anxious Affect: depressed, anxious Thought process: organized Thought Content: Wants to be discharged, fixates on anxiety and anxiety medications, feels she has no control over her life here on the unit and at home as well. Cognition: A&O x4 Insight: Fair Judgment: Fair Interventions PRN's used: Salvador Ramos Therapeutic interventions: 1:1 assessment, active listening, therapeutic conversation and establishment of rapport, medication administration/education/monitoring, encouragement to attend groups, MRSA education, diabetes education, Q 15min safety checks. Restraints/seclusion/emergency medication: N/A Justification of Continued Inpatient Treatment: The patient is depressed and anxious, requires further medication adjustment and management in a safe therapeutic milieu to interrupt current crisis. Without intervention she is at risk for harming herself and/or readmission.
[2018-06-27] MEDS: nicotine 14mg patch - 24hr TD SCH (07:16)
[2018-06-27] MEDS: levetiracetam 250mg tablet PO SCH ×2 (07:16→21:14)
[2018-06-27] MEDS: duloxetine 30mg CAPSULE.DR PO SCH ×2 (07:17→13:32)
[2018-06-27] MEDS: topiramate 100mg tablet PO SCH (07:17)
[2018-06-27] MEDS: gabapentin 300mg capsule PO SCH ×3 (07:17→21:14)
[2018-06-27] MEDS: lurasidone 20mg tablet PO SCH (07:17)
[2018-06-27] MEDS: topiramate 25mg tablet PO SCH (07:18)
[2018-06-27] MEDS: naproxen sodium 220mg tablet PO PRN ×3 (07:19→20:03)
[2018-06-27] MEDS: LORazepam 1 MG tablet PO PRN ×3 (07:19→20:03)
[2018-06-27 08:00] VITALS: BP 118/79
[2018-06-27] MEDS: insulin Lispro (HumaLOG) vial - multi-dose SQ SCH ×3 (08:53→18:10)
--- NOTE | 2018-06-27 15:11 | NUR ---
NURSING PROGRESS NOTE Legal hold: 5252 Client on involuntary status for: DTS Report received from ZACARIAS Tristan with use of SBAR Why are they here: Hx. of Depression. She lost custody of both children due to METH use. Patient contemplates suicide daily. Patient reported to Dr. Estrada that she gave herself 60 units of insulin to kill herself but that it did not work so she filled 2 syringes with 100 units of insulin in each hoping that would be enough to kill her but then decided not to do it. Patient has been hearing voices telling her "she is a piece of shit" and "your family hates you." Assessment What has happened this shift: Pt up in her room going to the bathroom at start of shift. AM accu check 454. Patient asked for Ativan for anxiety stating, "it makes me anxious going in that room with everyone for meals." She then wanted Naproxen for her "back pain, 09/29." Noon accu check was 288. Pt attended afternoon Art Therapy and participated in the group. Pt asked questions about the addiction program in [place] called, "[facility]." She also stated she needs to go home tomorrow so she can have her visitation with her son on Monday. Pt is a level 3 on the diabetic protocol. S/I, H/I: Pt denies A/VH: Pt denies Sleep: Small naps ADL's: Independent Group attendance: Yes Were meds taken: Yes Any med S/E: None reported or observed Mental Status Exam Appearance: Clean, showered in AM Eye contact: Good Behavior: Cooperative Speech: Clear, normal rate and rhythm Mood: anxious Affect: depressed, anxious Thought process: organized Thought Content: talked about her addiction and going to get help for her drug use Cognition: A&O x4 Insight: Fair Judgment: Fair Interventions PRN's used: Lorazepam and Naproxen Therapeutic interventions: Provided therapeutic communication with active listening, offered information on resources in [place] for drug addiction and abuse, medication administration/education/monitoring, encouragement to attend and participate in groups, diabetes education, assessed q15min safety checks. Restraints/seclusion/emergency medication: N/A Justification of Continued Inpatient Treatment: The patient is depressed and anxious, requires further medication adjustment and management in a safe therapeutic milieu to interrupt current crisis. Without intervention she is at risk for harming herself and/or readmission.
[2018-06-27 20:07] VITALS: BP 133/91
--- NOTE | 2018-06-27 21:00 | NUR ---
Clarified HS Lantus order with Dr. Estrada, pt. is to be administered [address] Estrada will also address insulin pump and settings with pt. tomorrow, she reports understanding.
[2018-06-27] MEDS: insulin glargine (Lantus) pen - multi-dose SQ SCH (21:09)
[2018-06-27] MEDS: acetaminophen 325mg tablet PO PRN (21:15)
[2018-06-27] MEDS: traZODone 50mg tablet PO PRN (21:20)
--- NOTE | 2018-06-28 02:15 | NUR ---
Nursing Progress Note: Legal hold: 5250 Client on involuntary status for DTS Report received from nurse with use of SBAR: ZACARIAS Talley Why are they here: Pt. has a history of depression, diabetes (has an insulin pump), and chronic non-healing wounds which are regularly treated by [facility] outpatient wound care clinic. She recently lost custody of both children due to METH use. Patient then began to contemplate suicide with a plan to overdose on insulin. Patient reported to Dr. Estrada that she gave herself 60 units of insulin to kill herself, but that it did not work so she filled 2 syringes with 100 units of insulin in each hoping that would be enough to kill her but then decided not to do it. Patient also reported she has been hearing A/H telling her "she is a piece of shit" and "your family hates you." Per Dr. Estrada, these A/H may have been caused by methamphetamine use. Pt. continues to have chronic wounds and will continue to be followed by [facility] outpatient wound care upon discharge. She continues on a carbohydrate controlled diet and diabetic insulin protocol, however blood sugars remain labile. Assessment What has happened this shift: Pt. sitting in bed reading at the beginning of the shift, she presents as cooperative, however anxious and slightly irritable at times. Pt. continues to perseverate on her desire to discharge tomorrow in order to ensure the scheduled visit with her son on Monday, states, "If I leave on Monday, I will have to cancel another visit with him. That will be the third cancellation for three consecutive weeks. His grandparents have a scheduled visit on Monday, so I can't see him then." She requests to have her PRN Ativan (reports Atrax is ineffective) and Aleve as soon as possible, then states, "Sorry, I don't know why I'm telling you this, you don't care!" This story writer assured pt. that we do care, and we are doing everything we can here to help her. She reported understanding and then went on to describe how her ex- has custody of her children, however she tries to do what ever she can for them including buying them gifts, and even planning to buy a mother's day gift for their step-mother. 1:1 completed later at bedside, pt. denies S/I, however continues to report anxiety and presents as increasingly irritable, heart rate remains slightly elevated. She also reports on-going depression in relation to her allowing herself to believe that she might be able to leave tomorrow, states, "I'm mad at myself, I got my hopes up about leaving, I shouldn't have done that." When this story writer questioned pt. regarding if she plans to stay away from drugs, she stated irritably, "Of course I do!" S/I, H/I: Denies A/VH: Denies Sleep: Requests PRN Trazodone at HS, and appears to be sleeping well ADL's: Independent, aside from wound care and insulin administration Group attendance: Pt. reports she attends groups, however unable to identify coping mechanisms Were meds taken: Yes Any med S/E: None Mental Status Exam Appearance: Neat and well dressed in hospital attire Eye contact: Good Behavior: Cooperative, however anxious and slightly irritable at times Speech: WNL, slightly pressured when irritable Mood: Guarded Affect: Constricted Thought process: Goal oriented, however poverty of thought r/t mental illness Thought Content: Perseveration on her desire to discharge tomorrow in order to ensure the scheduled visit with her son on Monday Cognition: A&O X4 Insight: Poor to Fair Judgment: Fair Interventions PRN's used: Ativan, Aleve, Tylenol, and Trazodone Therapeutic interventions: Introduced self and attempted to establish rapport, provided active listening, maintained a safe and supportive environment, ensured contract for safety, encouraged independent performance of ADLs, obtained BS and clarified HS Lantus order, and maintained Q 15 min safety checks. Restraints/seclusion/emergency medication: N/A Justification of Continued Inpatient Treatment: Pt. requires a safe and therapeutic environment and per Dr. Estrada, has poor insight into her hx of substance abuse and managing her chronic diabetes.
[2018-06-28] MEDS: naproxen sodium 220mg tablet PO PRN ×3 (07:26→21:12)
[2018-06-28] MEDS: nicotine 14mg patch - 24hr TD SCH (07:26)
[2018-06-28] MEDS: LORazepam 1 MG tablet PO PRN ×3 (07:28→21:12)
[2018-06-28] MEDS: lurasidone 20mg tablet PO SCH (07:28)
[2018-06-28] MEDS: levetiracetam 250mg tablet PO SCH ×2 (07:30→21:12)
[2018-06-28] MEDS: acetaminophen 325mg tablet PO PRN (07:31)
[2018-06-28] MEDS: topiramate 25mg tablet PO SCH (07:31)
[2018-06-28] MEDS: duloxetine 30mg CAPSULE.DR PO SCH ×2 (07:32→13:09)
[2018-06-28] MEDS: topiramate 100mg tablet PO SCH (07:32)
[2018-06-28] MEDS: gabapentin 300mg capsule PO SCH ×3 (07:33→21:12)
[2018-06-28] MEDS ORDERED: lactobacillus rhamnosus 10,000 MMU CELLS/CAPSULE PO SCH (08:00)
[2018-06-28 08:12] VITALS: BP 105/76
[2018-06-28] MEDS: insulin Lispro (HumaLOG) vial - multi-dose SQ SCH ×4 (09:06→21:22)
--- NOTE | 2018-06-28 14:50 | NUR ---
NURSING PROGRESS NOTE Legal hold: 5250 Client on involuntary status for: DTS Report received from ZACARIAS Tristan with use of SBAR Why are they here: Hx. of Depression. She lost custody of both children due to METH use. Patient contemplates suicide daily. Patient reported to Dr. Estrada that she gave herself 60 units of insulin to kill herself but that it did not work so she filled 2 syringes with 100 units of insulin in each hoping that would be enough to kill her but then decided not to do it. Patient has been hearing voices telling her "she is a piece of shit" and "your family hates you." Assessment What has happened this shift: Patient was asleep at change of shift and up before breakfast. Patient's BG was 296 this am. Patient spoke to Dr Estrada first thing in the morning and patient states she will be going home tomorrow. patient is happy because she wants to see her son. Patient states some depression. Patient denies SI/HI. Patient denies A/VH. Patient is cooperative with pleasant affect but at times depressed. Patient was seen by Dr Marshall today and examined patient's wounds with ZACARIAS Salinas at bedside. Dr Marshall stated her wounds looked good. RN cleansed and dressed wound and packed the wound on her leg with iodoform gauze. Patient went to group today. S/I, H/I: Pt denies A/VH: Pt denies Sleep: Small naps ADL's: Independent Group attendance: Yes Were meds taken: Yes Any med S/E: None reported or observed Mental Status Exam Appearance: Clean, showered in AM Eye contact: Good Behavior: Cooperative Speech: Clear, normal rate and rhythm Mood: anxious Affect: depressed, anxious Thought process: organized Thought Content: talked about going to see her son Cognition: A&O x4 Insight: Fair Judgment: Fair Interventions PRN's used: Lorazepam and Naproxen Therapeutic interventions: Provided therapeutic communication with active listening, offered information on resources in [place] for drug addiction and abuse, medication administration/education/monitoring, encouragement to attend and participate in groups, diabetes education, assessed q15min safety checks. Restraints/seclusion/emergency medication: N/A Justification of Continued Inpatient Treatment: The patient is depressed and anxious, requires further medication adjustment and management in a safe therapeutic milieu to interrupt current crisis. Without intervention she is at risk for harming herself and/or readmission.
[2018-06-28] MEDS: hydrOXYzine 25 MG tablet PO PRN (16:50)
[2018-06-28 19:00] VITALS: BP 139/96
[2018-06-28] MEDS: dextrose ORAL solution 15 GM/59 ML bottle PO PRN (19:43)
[2018-06-28] MEDS: insulin glargine (Lantus) pen - multi-dose SQ SCH (21:00)
[2018-06-28 21:40] VITALS: BP 120/70
[2018-06-28] MEDS: traZODone 50mg tablet PO PRN (21:48)
[2018-06-28] MEDS ORDERED: insulin glargine (Lantus) pen - multi-dose SQ ONE (22:55)
--- NOTE | 2018-06-29 00:37 | NUR ---
Nursing Progress Note: Legal hold: 5250 Client on involuntary status for DTS Report received from nurse with use of SBAR: ZACARIAS Lopes Why are they here: Pt. has a history of depression, diabetes (has an insulin pump), and chronic non-healing wounds which are regularly treated by [facility] outpatient wound care clinic. She recently lost custody of both children due to METH use. Patient then began to contemplate suicide with a plan to overdose on insulin. Patient reported to Dr. Estrada that she gave herself 60 units of insulin to kill herself, but that it did not work so she filled 2 syringes with 100 units of insulin in each hoping that would be enough to kill her but then decided not to do it. Patient also reported she has been hearing A/H telling her "she is a piece of shit" and "your family hates you." Per Dr. Estrada, these A/H may have been caused by methamphetamine use. Pt. continues to have chronic wounds and will continue to be followed by [facility] outpatient wound care upon discharge. She continues on a carbohydrate controlled diet and diabetic insulin protocol, however blood sugars remain labile. Assessment What has happened this shift: Pt. continues to present as cooperative, anxious, slightly irritable, withdrawn, and with more fatigue this shift. She approaches this play writer at approximately 1940 and requested to have her BS taken r/t feeling shaky and slightly SOB. BS taken and was 25. Pt. administered 30g of oral dextrose per diabetic protocol. She was also able to consume a protein snack and some juice. Dr. Doty notified, assessed pt., and subsequent BS taken w/in 15 minutes was 83. gave new orders to hold ordered HS Lantus and recheck BS in one hour. Subsequent BS was 475, Dr. Doty notified and obtained orders to administer 14 units of Humalog, and again recheck BS. BS rechecked in an hour and was 341, Dr. Doty notified and obtained new order to administer one-time dose of 30 units of Lantus and continue to recheck BS each hour throughout the night. Pt. continues to deny S/I, however reports ongoing anxiety and presents with increased heart rate. Heart rate reassessed 30 min after receiving PRN Ativan and was WNL. Pt. reports that she is hopeful that she will get to discharge tomorrow and see her son. She is compliant with all medications and requests PRN Trazodone for sleep, administered with effectiveness. She also continues to report chronic back pain and a h/a, PRN Aleve administered, will monitor. S/I, H/I: Denies A/VH: Denies Sleep: Requests PRN Trazodone at HS, and appears to be sleeping well, however preformed ordered BS checks Q 1 hour to prevent another hypoglycemic episode ADL's: Independent, aside from wound care and insulin administration Group attendance: Pt. reports she attends groups Were meds taken: Yes Any med S/E: None Mental Status Exam Appearance: Neat and well dressed in hospital attire Eye contact: Good Behavior: Cooperative, however anxious and slightly irritable at times Speech: WNL, soft, slightly pressured when irritable Mood: Guarded, however hopeful regarding possible discharge tomorrow. Affect: Constricted Thought process: Goal oriented, however poverty of thought r/t mental illness Thought Content: Perseveration on her desire to discharge Cognition: A&O X4 Insight: Fair Judgment: Fair Interventions PRN's used: Ativan, Aleve, and Trazodone Therapeutic interventions: Provided active listening, maintained a safe and supportive environment, ensured contract for safety, encouraged independent performance of ADLs, monitored BS throughout the night and administered required snacks and insulin as ordered, and maintained Q 15 min safety checks. Restraints/seclusion/emergency medication: N/A Justification of Continued Inpatient Treatment: Pt. continues to require a safe and therapeutic environment and management on her diabetes. Per Dr. Estrada, she will possibly discharge tomorrow and do an outpatient drug and alcohol program.
--- NOTE | 2018-06-29 00:45 | NUR ---
BLOOD SUGAR: Pts BS at approximately 0045 is 76, Dr. Doty notified, order to given pt. two juice boxes and recheck BS in one hour to prevent possible hypoglycemia. Pt. cooperative thus far with hourly BS checks, and is able to consume two juice boxes as ordered. Will continue to monitor. Addendum: 06/29/18 at 0523 by Bibiana Tavarez RN Last blood sugar taken at 0350 was 110, per Dr. Doty, no new orders
[2018-06-29] MEDS: LORazepam 1 MG tablet PO PRN (06:52)
[2018-06-29] MEDS: naproxen sodium 220mg tablet PO PRN (06:52)
[2018-06-29] MEDS ORDERED: NICO-631 TD (07:23)
[2018-06-29] MEDS ORDERED: LURA80TA3 PO (07:23)
[2018-06-29] MEDS ORDERED: DULO30CA51 PO (07:23)
[2018-06-29] MEDS ORDERED: DULO60CA64 PO (07:23)
[2018-06-29 07:45] VITALS: BP 113/76
[2018-06-29] MEDS: nicotine 14mg patch - 24hr TD SCH (08:00)
[2018-06-29] MEDS: topiramate 100mg tablet PO SCH (08:18)
[2018-06-29] MEDS: topiramate 25mg tablet PO SCH (08:18)
[2018-06-29] MEDS: duloxetine 30mg CAPSULE.DR PO SCH (08:19)
[2018-06-29] MEDS: gabapentin 300mg capsule PO SCH (08:19)
[2018-06-29] MEDS: lurasidone 20mg tablet PO SCH (08:19)
[2018-06-29] MEDS: levetiracetam 250mg tablet PO SCH (08:20)
--- NOTE | 2018-06-29 09:08 | NUR ---
Discharge Note: Margot ambulatory, steady gait with her mother and steve Bahman with all her belongings, including her valuables. Patient had placed her insulin pump back on after breakfast and gave herself the appropriate dose via her pump. Patient was no longer feeling suicidal and was excited to go home and see her son this afternoon. Patient states she is no longer feeling depressed and felt she has imroved since her admission. Patient was pleasant and happy Patient did not want smoking cessation and refused her nicotine patch this morning because she stated she was going to smoke as soon as she got to the car. Patient's mother was driving her to her home. Patient does not drive but states she can always find a ride. RN gave patient her discharge instructions including her follow up appointments. Patient verbalized understanding. All questions were answered. Patient left at 0908.
== END 2018-06-29 09:00 | disposition home or self-care (01) | DRG 885 ==
LOC: ADULT MH 17:17
PROVIDERS: ADMIT Psychiatry & Neurology Psychiatry; ATTEND Psychiatry & Neurology Psychiatry
DX: F33.2 Major depressive disorder, recurrent severe without psychotic features (principal); F15.20 Other stimulant dependence, uncomplicated; L02.419 Cutaneous abscess of limb, unspecified; L02.416 Cutaneous abscess of left lower limb; T38.3X2A Poisoning by insulin and oral hypoglycemic [antidiabetic] drugs, intentional self-harm, initial encounter; E10.40 Type 1 diabetes mellitus with diabetic neuropathy, unspecified; E10.65 Type 1 diabetes mellitus with hyperglycemia; F17.210 Nicotine dependence, cigarettes, uncomplicated; F41.9 Anxiety disorder, unspecified; G40.909 Epilepsy, unspecified, not intractable, without status epilepticus; G89.29 Other chronic pain; I10 Essential (primary) hypertension; F29 Unspecified psychosis not due to a substance or known physiological condition; M54.5 Low back pain; K21.9 Gastro-esophageal reflux disease without esophagitis; L89.159 Pressure ulcer of sacral region, unspecified stage; Z79.4 Long term (current) use of insulin; Z83.3 Family history of diabetes mellitus; Z91.5 Personal history of self-harm; Z98.84 Bariatric surgery status; Y92.89 Other specified places as the place of occurrence of the external cause; Z98.891 History of uterine scar from previous surgery; Z71.51 Drug abuse counseling and surveillance of drug abuser
CPT/HCPCS: 36415; 80061; 82948; 83036; 85025; J1815; Q0177

== ENCOUNTER 2019-01-04 12:11 | Emergency (ER) | payer MEDICARE, MEDICAID ==
[~2019-01-04] VITALS: Ht 162.6 cm; Wt 52.3 kg
[~2019-01-04 12:11] MED LIST changes: -BREX2TAB PO; +DULO30CA52 PO; +DULO60CA65 PO; +GABA600T13 PO; -LORA1TAB PO; +LURA80TA3 PO; +NICO-631 TD; -NORCO10T PO; -ONDA4TAB6 PO; +ONDA8TAB13 PO; +TOP100T PO; -TRAM50TA2 PO
--- NOTE | 2019-01-04 12:35 | NUR ---
AFTER REVIEWING PREVIOUS VISITS, PT HAS A HX OF MULTIPLE SUICIDE ATTEMPTS BY MEANS OF INSULIN OVERDOSE.
--- NOTE | 2019-01-04 12:50 | NUR ---
PT'S INSULIN PUMP CHECKED. PUMP RUNNING AT 0.8 AT THIS TIME.
[2019-01-04] MEDS ORDERED: normal saline 1000ML IV soln IVB ONE (12:55)
--- NOTE | 2019-01-04 12:58 | NUR ---
MD AWARE OF PT'S PREVIOUS SUICIDAL ATTEMPTS WITH INSULIN PUMP, AND IS AWARE THAT PT IS CURRENTLY ON A SELF MANAGED PUMP. NO ORDERS TO DC AT THIS TIME.
[2019-01-04] MEDS ORDERED: LORazepam 2 mg/ml vial IV ONE (13:15)
[2019-01-04 13:18] LABS: BASOPHILS % (AUTO) 0.6 % (0-1); EOSINOPHILS # (AUTO) 0.1 X10'3 (0-0.9); EOSINOPHILS % (AUTO) 1.5 % (0-6); HEMATOCRIT 32.7 % (35.0-45.0); HEMOGLOBIN 9.7 g/dl (12.0-16.0); LYMPHOCYTES # (AUTO) 1.7 X10'3 (1.1-4.8); LYMPHOCYTES % (AUTO) 22.5 % (21-51); MEAN CORPUSCULAR HEMOGLOBIN 17.7 PG (27.0-31.0); MEAN CORPUSCULAR HGB CONC 29.8 g/dL (33.0-36.5); MEAN CORPUSCULAR VOLUME 59.4 FL (78-98); MEAN PLATELET VOLUME 8.6 FL (7.4-10.4); MONOCYTES # (AUTO) 0.5 X10'3 (0-0.9); MONOCYTES % (AUTO) 6.2 % (2-12); NEUTROPHILS # (AUTO) 5.1 X10'3 (1.8-7.7); NEUTROPHILS % (AUTO) 69.2 % (42-75); PLATELET COUNT 274 X10'3 (140-440); WHITE BLOOD COUNT 7.3 X10'3 (4.5-11.0)
[2019-01-04 13:27] LABS: URINE HCG NEGATIVE (NEG)
[2019-01-04 13:29] LABS: URINE AMPHETAMINE SCREEN NEGATIVE (Neg); URINE BARBITUATE SCREEN NEGATIVE (Neg); URINE BENZODIAZEPINES SCREEN NEGATIVE (Neg); URINE CANNABINOID SCREEN NEGATIVE (Neg); URINE COCAINE SCREEN NEGATIVE (Neg); URINE METHADONE SCREEN NEGATIVE (Neg); URINE OPIATE SCREEN POSITIVE (Neg); URINE PHENCYCLIDINE SCREEN NEGATIVE (Neg)
[2019-01-04 13:32] LABS: CLARITY,URINE CLEAR (Clear); COLOR,URINE STRAW (Yellow); GLUCOSE, URINE >=1000 mg/dl (Neg); KETONES,URINE 15 mg/dl (Neg); LEUKOCYTE ESTERASE ,URINE NEGATIVE (Neg); NITRITES, URINE NEGATIVE (Neg); OCCULT BLOOD,URINE NEGATIVE (Neg); PROTEIN,URINE NEGATIVE (Neg); UROBILINOGEN,URINE 0.2 E.U/dL (0.2-1.0)
[2019-01-04 13:34] LABS: UA COLLECTION TYPE CLN CATCH MIDSTREAM
[2019-01-04] MEDS ORDERED: ondansetron/PF 4mg/2ml inj IV ONE (13:35)
[2019-01-04 13:38] LABS: BACTERIA,URINE 1+ /HPF (Neg); MUCUS STRANDS NONE SEEN /LPF (Neg); RBC,URINE NONE SEEN /HPF (0-2); SQUAMOUS EPITHELIAL CELL,UR MANY /LPF (FEW); WBC,URINE 0-4 /HPF (0-4); YEAST FEW /HPF (NEGATIVE)
[2019-01-04 13:42] LABS: ALANINE AMINOTRANSFERASE 75 U/L (12-78); ALBUMIN 3.6 G/DL (3.4-5.0); ALKALINE PHOSPHATASE 185 IU/L (46-116); ANION GAP 7 (8-16); ASPARTATE AMINO TRANSFERASE 49 U/L (10-37); BILIRUBIN,TOTAL 0.3 MG/DL (0.1-1.0); BLOOD UREA NITROGEN 12 MG/DL (7-18); BUN/CREATININE RATIO 17.1 (6.6-38.0); CHLORIDE 100 MMOL/L (99-107); GLUCOSE 369 MG/DL (70-104); POTASSIUM 4.1 MMOL/L (3.5-5.1); SODIUM 133 MMOL/L (135-145); TOTAL CARBON DIOXIDE 26.3 MMOL/L (24-32); TOTAL PROTEIN 7.2 G/DL (6.4-8.2); eGFR > 90 ML/MIN
[2019-01-04 13:49] LABS: PLATELET ESTIMATE NORMAL
[2019-01-04 13:50] LABS: ANISOCYTOSIS 3+; ELLIPTOCYTES FEW; HYPOCHROMASIA 3+; MICROCYTOSIS 3+; POLYCHROMASIA 1+; TEAR DROP CELLS FEW
[2019-01-04 13:54] LABS: ETHANOL < 0.010 GM/DL (0.0-0.010)
[2019-01-04] MEDS ORDERED: DULO-31 PO ×2 (13:58)
[2019-01-04] MEDS ORDERED: CLON-528 PO (13:58)
[2019-01-04] MEDS ORDERED: BUSP10TA11 PO (13:58)
[2019-01-04] MEDS ORDERED: ATOR40TA PO (13:58)
[2019-01-04] MEDS ORDERED: FLUC150T PO (13:58)
[2019-01-04] MEDS ORDERED: FERR220S16 PO (13:58)
[2019-01-04] MEDS ORDERED: LURA20TA PO (13:59)
[2019-01-04] MEDS ORDERED: PANT20TA3 PO (13:59)
[2019-01-04] MEDS ORDERED: TOP100T PO (13:59)
[2019-01-04] MEDS ORDERED: CHOL400T14 PO ×2 (13:59)
[2019-01-04] MEDS ORDERED: INSU100C4 SQ (13:59)
[2019-01-04] MEDS ORDERED: TRAZ-251 PO (13:59)
[2019-01-04] MEDS ORDERED: NYST1000 PO (13:59)
[2019-01-04] MEDS ORDERED: METO-292 PO (13:59)
[2019-01-04] MEDS ORDERED: GABA800T11 PO (13:59)
[2019-01-04] MEDS ORDERED: LEVE750T6 PO (13:59)
--- NOTE | 2019-01-04 15:11 | NUR ---
pt moved to [facility]. aware that pt is on insulin pump with previous suicidal attempts by means of insulin overdose. md wants to continue letting pt mangage her own insulin pump. pt's last bs prior to transfer to [facility] was 227, and md is aware and cleared pt for transfer.
--- NOTE | 2019-01-04 15:39 | NUR ---
assumed care of pt from Alisia ADAMES, pt is being evaluated by [facility] clinician, pt is calm and cooperative
--- NOTE | 2019-01-04 17:17 | NUR ---
pt amb with steady gait to restroom
[2019-01-04 17:24] VITALS: BP 143/97
--- NOTE | 2019-01-04 17:29 | NUR ---
pt has been accepted at [facility], [facility] when pt when will be going upstairs, pt is calm and cooperative, resp even and unlabored
--- NOTE | 2019-01-04 18:39 | NUR ---
pt is eating dinner, eri well, no n/v
--- NOTE | 2019-01-04 19:15 | NUR ---
Dr Irving gave verbal order for pt to administer 4.2units novolog via her own insulin pump, I watched pt administer the correct dose of insulin, carb count was 33. pt is calm and cooperative, and has contracted to only administer insulin when instructed.
--- NOTE | 2019-01-04 20:12 | NUR ---
pt amb with steady gait to restroom
--- NOTE | 2019-01-04 21:15 | NUR ---
PT BEING TRANSFERRED TO [facility]
== END 2019-01-04 21:14 ==
LOC: ER 12:12
DX: R44.0 Auditory hallucinations (principal); R44.1 Visual hallucinations; E10.65 Type 1 diabetes mellitus with hyperglycemia; D64.9 Anemia, unspecified; F41.9 Anxiety disorder, unspecified; F32.9 Major depressive disorder, single episode, unspecified; F15.90 Other stimulant use, unspecified, uncomplicated; Z86.69 Personal history of other diseases of the nervous system and sense organs; Z90.49 Acquired absence of other specified parts of digestive tract; Z98.0 Intestinal bypass and anastomosis status; Z98.890 Other specified postprocedural states; Z56.0 Unemployment, unspecified; Z88.0 Allergy status to penicillin; Z88.2 Allergy status to sulfonamides; Z79.899 Other long term (current) drug therapy
CPT/HCPCS: 36415; 80053; 80305; 80320; 81001; 81025; 82948; 84443; 85025; 96361; 96374; 99285; J2060; J7030

== ENCOUNTER 2019-01-04 15:13 | Inpatient (IN) | payer MEDICARE, MEDICAID ==
[~2019-01-04] VITALS: Ht 162.6 cm; Wt 51.8 kg
[~2019-01-04 15:13] MED LIST changes: +ATOR40TA PO; +BUSP10TA11 PO; +CHOL400T14 PO; +CLON-528 PO; +DULO-31 PO; +FERR220S16 PO; +FLUC150T PO; +GABA800T11 PO; +LEVE750T6 PO; +LURA20TA PO; +METO-292 PO; +NYST1000 PO; +PANT20TA3 PO; +TRAZ-251 PO
[2019-01-04] MEDS ORDERED: insulin glargine (Lantus) pen - multi-dose SQ ONE (22:10)
[2019-01-04] MEDS ORDERED: MESSAGE TO PHARMACY PO ONE (22:15)
[2019-01-04] MEDS ORDERED: acetaminophen 325mg tablet PO PRN (22:15)
[2019-01-04] MEDS ORDERED: dextrose 50%-water 50ml dispensing syringe IV PRN ×2 (22:15)
[2019-01-04] MEDS ORDERED: dextrose ORAL solution 15 GM/59 ML bottle PO PRN ×2 (22:15)
[2019-01-04] MEDS ORDERED: glucagon, human recombinant 1mg kit SUBCUT PRN (22:15)
[2019-01-04] MEDS ORDERED: loperamide 2mg capsule PO PRN (22:20)
[2019-01-04] MEDS ORDERED: mag hydrox/Alum hydrox/simeth 30ml oral suspension PO PRN (22:20)
[2019-01-04] MEDS ORDERED: LORazepam 1 MG tablet PO PRN (22:20)
[2019-01-04] MEDS ORDERED: magnesium hydroxide 30ml (MOM) UD suspension PO PRN (22:20)
[2019-01-04 22:51] VITALS: BP 136/88
[2019-01-04] MEDS ORDERED: metoclopramide 10mg tablet PO PRN (23:00)
--- NOTE | 2019-01-05 02:06 | NUR ---
Admit note: Patient brought to unit from ED bed 20 via wheelchair by Enrique OMER. Escorted to shower where two RN skin assessment completed. Patient is noted to have pressure ulcer to coccyx. Pictures taken of wound. Wound is redressed. Patient cooperative for admission process. All belongings inventory and contraband placed in locker and safe. Patient was placed on 5150 for GD from psychosis. Patient is hearing voices that are negative and command in nature. Patient has been doing what the voices say. They tell her to eat, and tell her she is stupid, among other things. Patient is also reporting depression. Upon arrival to ED patient's CBG was 353. Patient is type 1 diabetic on insulin pump. Per hospitalist, insulin pump is discontinued. Patient is placed on protocol. 16 units Lantus administered per doctor's order. Patient remained in bed sleeping remainder of the shift. Addendum: 01/05/19 at 0501 by Joan Steele RN Patient arrived on unit at 2150.
--- NOTE | 2019-01-05 04:06 | NUR ---
Nursing note: Patient refused MRSA swab.
[2019-01-05 08:00] VITALS: BP 142/96
[2019-01-05] MEDS ORDERED: lurasidone 20mg tablet PO SCH (08:00)
[2019-01-05] MEDS: vitamin D (cholecalciferol) 1,000 unit tablet PO SCH (08:15)
[2019-01-05] MEDS: busPIRone 5mg tablet PO SCH ×3 (08:15→21:02)
[2019-01-05] MEDS: ferrous sulfate 300mg/5ml UD oral liquid PO SCH (08:15)
[2019-01-05] MEDS: pantoprazole 40mg Tablet.DR PO SCH (08:15)
[2019-01-05] MEDS: topiramate 100mg tablet PO SCH ×2 (08:15→21:03)
[2019-01-05] MEDS: duloxetine 30mg CAPSULE.DR PO SCH ×2 (08:15→13:10)
[2019-01-05] MEDS: gabapentin 400mg capsule PO SCH ×3 (08:15→21:01)
[2019-01-05] MEDS: nystatin 500,000 unit/5ML UD oral suspension PO SCH ×3 (08:15→13:11)
[2019-01-05] MEDS: clonazePAM 0.5mg tablet PO SCH ×4 (08:16→21:02)
[2019-01-05] MEDS: acetaminophen 325mg tablet PO PRN (08:16)
[2019-01-05] MEDS: atorvastatin 20mg tablet PO SCH (08:16)
[2019-01-05] MEDS: levetiracetam 250mg tablet PO SCH ×2 (08:16→21:01)
[2019-01-05] MEDS: insulin Lispro (HumaLOG) vial - multi-dose SQ SCH ×4 (08:46→21:12)
[2019-01-05 09:46] LABS: CHOLESTEROL 149 MG/DL (0-200); HDL CHOLESTEROL 50 MG/DL (35-60); LDL CHOLESTEROL 76 MG/DL (50-100); TRIGLYCERIDES 123 MG/DL (20-135)
[2019-01-05] MEDS: HYDROcodone/acetaminophen 5mg/325mg tablet PO PRN ×2 (13:10→18:55)
--- NOTE | 2019-01-05 13:34 | NUR ---
Pt states that she is prone to yeast and developing thrush so she uses Nystatin suspension at home as needed. Pt states that she does not currently have thrush so does not need Nystatin. Will notify provider.
--- NOTE | 2019-01-05 17:57 | NUR ---
Nursing Progress Note: Legal hold:5150 Client on involuntary status for GD Report received from nurse with use of MARIANNE Sullivan RN Why are they here: Patient was placed on 5150 for GD from psychosis. Patient is hearing voices that are negative and command in nature. Patient has been doing what the voices say. They tell her to eat, and tell her she is stupid, among other things. Patient is also reporting depression. Assessment What has happened this shift: Pt stated that she felt "lousy," she would not rate her depression, she denied SI, she denied AH "today." Pt stated, "I don't know why I'm here, I shouldn't have come." Pt c/o 08/29 back pain, was given prn Tylenol 650 mg with some effect. Hospitalist came to see pt and ordered [place] 5/325 mg Q 6H PRN, she was given a dose at 1310 with good effect. Pt's HgbA1c was 13. She uses an insulin pump at home but evidently was not managing her sugars well. Pt is on protocol she began at a level 2 today and is now a level 4. FSBG AC bkfst was 265, she was given 12 units humalog, AC lunch was 340, she was given 16 units humalog, AC dinner was 405. Pt is eating well at mealtimes with 100% of breakfast and 75% at lunch she also ate at both snack times. Pt has a pressure ulcer on her coccyx, she sees wound care once a week and changes her dressing after showers. Foam dressing on coccyx today C/D/I. Order placed for wound consult. Pt stated that Santyl was being applied with a foam dressing. Per noc shift documentation, pt refused MRSA swab. Pt also did this on her previous admission because she has a known Hx of MRSA. S/I, H/I: Pt denies A/VH: Pt denies VH, denies AH today Sleep: Slept well per pt report ADL's: independent Group attendance: yes Were meds taken:yes Any med S/E: None noted or reported Mental Status Exam Appearance: clean, dressed in clean hospital scrubs Eye contact: Good Behavior: Pleasant, cooperative Speech: clear, audible, normal rate & rhythm Mood: "lousy" Affect: depressed Thought process: intact Thought Content: feels lousy, doesn't know why she is here Cognition: A/O X 4 Insight: Fair Judgment: Fair Interventions PRN's used: Tylenol 650 mg, [place] 5/325 mg Therapeutic interventions: 1:1 assessment, active listening, therapeutic conversation, medication administration/education/monitoring, FSGB monitoring, insulin administration per protocol, encouragement to attend groups, wound care, Q 15 min checks. Restraints/seclusion/emergency medication: N/A Justification of Continued Inpatient Treatment: Pt is here on a 5150 for GD, she is a Type I diabetic who has not been managing her sugars well, she was admitted for depression with worsening CAH. She needs medication adjustment and monitoring in a safe and therapeutic environment that can also manage her brittle DM.
[2019-01-05 19:00] VITALS: BP 110/78
[2019-01-05] MEDS: traZODone 50mg tablet PO PRN (21:05)
[2019-01-05] MEDS: insulin glargine (Lantus) pen - multi-dose SQ SCH (21:09)
--- NOTE | 2019-01-06 02:36 | NUR ---
Legal hold:5150 Client on involuntary status for GD Report received from nurse with use of MARIANNE Lopes RN Why are they here: Patient was placed on 5150 for GD from psychosis. Patient is hearing voices that are negative and command in nature. Patient has been doing what the voices say. They tell her to eat, and tell her she is stupid, among other things. Patient is also reporting depression. Pt has a pressure ulcer on her coccyx, she sees wound care once a week and changes her dressing after showers. Foam dressing on coccyx today C/D/I. Order placed for wound consult. Pt stated that Santyl was being applied with a foam dressing. Per noc shift documentation, pt refused MRSA swab. Pt also did this on her previous admission because she has a known Hx of MRSA. Assessment What has happened this shift: Pt in group room watching TV at start of shift. Pt took a shower new drsing to sacrum applied by pt Pt denied SI Still after shower. Pt denies depression, she denied SI, she denied AH at this time. She said she was hearing voices earlier. The voices often instruct her what to do next but at times they say derogatory things. Pt's HgbA1c was 13. She uses an insulin pump at home but evidently was not managing her sugars well. Pt is on protocol she began at a level 2 today and is now a level 5. HS BS 306. Given 19 units of Lantus 5 units humalog. Pt is eating well at mealtimes. with 100% of breakfast and 75% at lunch she also ate at both snack times. S/I, H/I: Pt denies A/VH: Pt denies VH, denies at this time Sleep: Asleep at this time ADL's: independent Group attendance: yes Were meds taken:yes Any med S/E: None noted or reported Mental Status Exam Appearance: clean, dressed in clean hospital scrubs Eye contact: Good Behavior: Pleasant, cooperative Speech: clear, audible, normal rate & rhythm Mood: "lousy" Affect: depressed Thought process: intact Thought Content: feels lousy, doesn't know why she is here Cognition: A/O X 4 Insight: Fair Judgment: Fair Interventions PRN's used: [place] 5/325 mg Trazodone Therapeutic interventions: 1:1 assessment, active listening, therapeutic conversation, medication administration/education/monitoring, FSGB monitoring, insulin administration per protocol, encouragement to attend groups, wound care, Q 15 min checks. Restraints/seclusion/emergency medication: N/A Justification of Continued Inpatient Treatment: Pt is here on a 5150 for GD, she is a Type I diabetic who has not been managing her sugars well, she was admitted for depression with worsening CAH. She needs medication adjustment and monitoring in a safe and therapeutic environment that can also manage her brittle DM.
[2019-01-06 08:00] VITALS: BP 94/61
[2019-01-06] MEDS: topiramate 100mg tablet PO SCH ×2 (08:17→20:47)
[2019-01-06] MEDS: atorvastatin 20mg tablet PO SCH (08:18)
[2019-01-06] MEDS: gabapentin 400mg capsule PO SCH ×3 (08:18→20:46)
[2019-01-06] MEDS: levetiracetam 250mg tablet PO SCH ×2 (08:18→20:47)
[2019-01-06] MEDS: clonazePAM 0.5mg tablet PO SCH ×4 (08:18→20:46)
[2019-01-06] MEDS: busPIRone 5mg tablet PO SCH ×3 (08:18→20:47)
[2019-01-06] MEDS: pantoprazole 40mg Tablet.DR PO SCH (08:18)
[2019-01-06] MEDS: ferrous sulfate 300mg/5ml UD oral liquid PO SCH (08:18)
[2019-01-06] MEDS: duloxetine 30mg CAPSULE.DR PO SCH ×2 (08:18→13:42)
[2019-01-06] MEDS: vitamin D (cholecalciferol) 1,000 unit tablet PO SCH (08:26)
[2019-01-06] MEDS: lurasidone 60mg tablet PO SCH (08:27)
[2019-01-06] MEDS: HYDROcodone/acetaminophen 5mg/325mg tablet PO PRN ×2 (08:27→14:39)
--- NOTE | 2019-01-06 09:40 | NUR ---
DM consult: A1C 13.0. Pt admit on 5150 w/ increasing psychosis DX major depressive disorder and PTSD per MD note. Pt hx T1DM on insulin pump which has currently been taken off per MD note. GLU elevated to 405 last night now down to 234 increasing hyperglycemia protocol. Per MD note pt hearing auditory hallucinations telling her to "eat certain foods and stop talking to herself." Pt also noted to have sacral PU w/ WOC pending. DM/^pro eds deferred at this time given DX; once DX improves pt would benefit from written/verbal DM and high protein eds by RD. PO 75-100% avg carb controlled meals meeting needs w/ LBM 01/04. Will continue to monitor. Rec: 1. continue carb controlled diet 2. DM/high protein eds once more appropriate 3. monitor for additional protein needs pending WOC assessment 4. weekly wts Addendum: 01/06/19 at [address] Amended: Links added.
[2019-01-06] MEDS: insulin Lispro (HumaLOG) vial - multi-dose SQ SCH ×2 (09:44→14:04)
--- NOTE | 2019-01-06 16:50 | NUR ---
Nursing Progress Note: Margot Legal hold:5150 Client on involuntary status for GD Report received from nurse with use of MARIANNE Sullivan RN Why are they here: Patient was placed on 5150 for GD from psychosis. Patient is hearing voices that are negative and command in nature. Patient has been doing what the voices say. They tell her to eat, and tell her she is stupid, among other things. Patient is also reporting depression. Assessment Pt is resting in bed peacefully at change of shift. Medications are taken as ordered without incident. Pt is pleasant and cooperative with care. Fasting AM BG was 234, Afternoon was 476 and she ws advanced to level6. She received 65 units per protocol. Took BG prior to dinner and it was 33, Pt was diaphoretic, shaky, "feeling bad". 2 bottles of glucagon ) Pt has a pressure ulcer on her coccyx, she sees wound care once a week and changes her dressing after showers. Foam dressing on coccyx today C/D/I. Order placed for wound consult. Pt stated that Santyl was being applied with a foam dressing. Per noc shift documentation, pt refused MRSA swab. Pt also did this on her previous admission because she has a known Hx of MRSA. S/I, H/I: Pt denies A/VH: Pt denies VH, denies AH today Sleep: Slept well per pt report ADL's: independent Group attendance: yes Were meds taken:yes Any med S/E: None noted or reported Mental Status Exam Appearance: clean, dressed in clean hospital scrubs Eye contact: Good Behavior: Pleasant, cooperative Speech: clear, audible, normal rate & rhythm Mood: "lousy" Affect: depressed Thought process: intact Thought Content: feels lousy, doesn't know why she is here Cognition: A/O X 4 Insight: Fair Judgment: Fair Interventions PRN's used: [place] 5/325 mg x2 Therapeutic interventions: 1:1 assessment, active listening, therapeutic conversation, medication administration/education/monitoring, FSGB monitoring, insulin administration per protocol, encouragement to attend groups, wound care, Q 15 min checks. Restraints/seclusion/emergency medication: N/A Justification of Continued Inpatient Treatment: Pt is here on a 5150 for GD, she is a Type I diabetic who has not been managing her sugars well, she was admitted for depression with worsening CAH. She needs medication adjustment and monitoring in a safe and therapeutic environment that can also manage her brittle DM. Addendum: 01/06/19 at 1842 by Alicia Telles RN Glucose was taken again after the 30 grams of glucagon and was 122. Pt states that she feels better. She is seen in the evening eating her meal in the community room.
[2019-01-06 19:57] VITALS: BP 91/70
[2019-01-06] MEDS: traZODone 50mg tablet PO PRN (20:47)
[2019-01-06] MEDS: insulin glargine (Lantus) pen - multi-dose SQ SCH (20:54)
[2019-01-07 02:32] VITALS: BP 83/47
--- NOTE | 2019-01-07 02:46 | NUR ---
Antwon Lang Notified of BS 403. Will repeat Accu check in AM.
[2019-01-07] MEDS: HYDROcodone/acetaminophen 5mg/325mg tablet PO PRN ×3 (03:09→17:32)
[2019-01-07] MEDS: levetiracetam 250mg tablet PO SCH ×2 (07:16→20:27)
[2019-01-07] MEDS: clonazePAM 0.5mg tablet PO SCH ×4 (07:17→20:27)
[2019-01-07] MEDS: lurasidone 60mg tablet PO SCH (07:17)
[2019-01-07] MEDS: vitamin D (cholecalciferol) 1,000 unit tablet PO SCH (07:17)
[2019-01-07] MEDS: busPIRone 5mg tablet PO SCH ×3 (07:18→20:28)
[2019-01-07] MEDS: pantoprazole 40mg Tablet.DR PO SCH (07:18)
[2019-01-07] MEDS: atorvastatin 20mg tablet PO SCH (07:18)
[2019-01-07] MEDS: gabapentin 400mg capsule PO SCH ×3 (07:19→20:27)
[2019-01-07] MEDS: duloxetine 30mg CAPSULE.DR PO SCH ×2 (07:20→12:52)
[2019-01-07] MEDS: ferrous sulfate 300mg/5ml UD oral liquid PO SCH (07:20)
[2019-01-07] MEDS: topiramate 100mg tablet PO SCH ×2 (07:20→20:29)
[2019-01-07 08:08] VITALS: BP 95/66
[2019-01-07] MEDS: insulin Lispro (HumaLOG) vial - multi-dose SQ SCH (09:40)
--- NOTE | 2019-01-07 14:22 | NUR ---
PRESSURE ULCER EDUCATION: DEFINITION: A pressure ulcer is an area of skin that breaks down when you stay in one position too long. The constant pressure against the skin reduces the blood flow to that area and the affected tissue dies. CAUSES: "Being bedridden or in a wheelchair "Fragile skin "Having a chronic condition, such as diabetes or vascular disease "Inability to move certain parts of your body without assistance "Older age "Incontinence of urine or stool SYMPTOMS: "A reddened area that DOES NOT turn white when pressed on - this can be the beginning of a pressure ulcer "A blister, deep sore or a crater - these can be advanced pressure ulcers FIRST AID: "Relieve the pressure on this area "Keep the area clean and dry "Call your primary doctor if you see any of the above symptoms "DO NOT massage the area "DO NOT use a donut shaped or ring shaped pillow- these actually interfere with the blood flow and cause complications PREVENTION: "Check for pressure ulcers everyday "Change position at least every two hours to relieve pressure "Use items that help relieve pressure- pillows, sheepskin, foam padding, and powders. "Keep skin clean and dry "Eat healthy well balanced meals "Exercise daily IF YOU SEE ANY OF THESE SYMPTOMS WHILE IN THE HOSPITAL - TELL YOUR NURSE IMMEDIATELY. IF YOU SEE ANY OF THESE SYMPTOMS WHILE AT HOME OR HAVE ANY QUESTIONS OR CONCERNS ABOUT PRESSURE ULCERS - CALL YOUR PRIMARY DOCTOR IMMEDIATELY. Addendum: 01/07/19 at 1422 by Nilda Collado RN Amended: Links added.
--- NOTE | 2019-01-07 17:48 | NUR ---
Nursing Progress Note: Margot Legal hold:5150 Client on involuntary status for GD Report received from nurse with use of Dina LOPES RN Why are they here: Patient was placed on 5150 for GD from psychosis. Patient is hearing voices that are negative and command in nature. Patient has been doing what the voices say. They tell her to eat, and tell her she is stupid, among other things. Patient is also reporting depression. Assessment Pt is resting in bed peacefully at change of shift. Medications are taken as ordered without incident. Pt is pleasant and cooperative with care. Fasting AM BG was 323 Afternoon was 209, she gave herself 1.7 units of insulin and then covered her 60 grams of carbs with 4.2 units. Pt is now using her indwelling insulin pump for coverage. Will continue to monitor with hospital monitor per protocol. She has signed a safety contract.She had a pre-dinner BG of 127. She is pleasant and cooperative with care. Denies SI, HI, A/VH. She eats all her meals in the community room and did not go outside to the [facility]. She is seen napping intermittently throughout the day. She c/o pain and PRN [place] was given x2 with good relief. Pt has a pressure ulcer on her coccyx, she sees wound care once a week and changes her dressing after showers. Foam dressing on coccyx today C/D/I. Wound care came today and changed it. S/I, H/I: Pt denies A/VH: Pt denies VH, denies AH today Sleep: naps intermittently throughout the day ADL's: independent Group attendance: some Were meds taken:yes Any med S/E: None noted or reported Mental Status Exam Appearance: clean, dressed in street clothes Eye contact: Good Behavior: Pleasant, cooperative, isolative Speech: clear, audible, normal rate & rhythm Mood: "ok." Affect: depressed, withdrawn Thought process: intact, linear Thought Content: "I am happy to have my pump back". "My back hurts". Cognition: A/O X 4 Insight: Fair Judgment: Fair Interventions PRN's used: [place] 5/325 mg x2 Therapeutic interventions: 1:1 assessment, active listening, therapeutic conversation, medication administration/education/monitoring, FSGB monitoring, insulin administration per protocol, encouragement to attend groups, wound care, Q 15 min checks. Restraints/seclusion/emergency medication: N/A Justification of Continued Inpatient Treatment: Pt is here on a 5150 for GD, she is a Type I diabetic who has not been managing her sugars well, she was admitted for depression with worsening CAH. She needs medication adjustment and monitoring in a safe and therapeutic environment that can also manage her brittle DM.
[2019-01-07 20:00] VITALS: BP 98/70
[2019-01-07] MEDS: insulin glargine (Lantus) pen - multi-dose SQ SCH (21:00)
--- NOTE | 2019-01-07 21:53 | NUR ---
Nursing Progress Note: Margot Legal hold:5150 Client on involuntary status for GD Report received from nurse with use of Dina LOPES RN Why are they here: Patient was placed on 5150 for GD from psychosis. Patient is hearing voices that are negative and command in nature. Patient has been doing what the voices say. They tell her to eat, and tell her she is stupid, among other things. Patient is also reporting depression. Assessment Pt is resting in bed peacefully at change of shift. Medications are taken as ordered without incident. Pt is pleasant and cooperative with care. Fasting AM BG was 323 Afternoon was 209, she gave herself 1.7 units of insulin and then covered her 60 grams of carbs with 4.2 units, This shift BS 151 and gave her self 3.4 units before snack.. Pt is now using her indwelling insulin pump for coverage. Will continue to monitor with hospital monitor per protocol. She has signed a safety contract.She had a pre-dinner BG of 127. She is pleasant and cooperative with care. Denies SI, HI, A/VH. She eats all her meals in the community room and did not go outside to the [facility]. She is seen napping intermittently throughout the day. She c/o pain and PRN [place] was given x2 with good relief. Pt has a pressure ulcer on her coccyx, she sees wound care once a week and changes her dressing after showers. Foam dressing on coccyx today C/D/I. Wound care came today and changed it. S/I, H/I: Pt denies A/VH: Pt denies VH, denies AH today Sleep: naps intermittently throughout the day ADL's: independent Group attendance: some Were meds taken:yes Any med S/E: None noted or reported Mental Status Exam Appearance: clean, dressed in street clothes Eye contact: Good Behavior: Pleasant, cooperative, isolative Speech: clear, audible, normal rate & rhythm Mood: "ok." Affect: depressed, withdrawn Thought process: intact, linear Thought Content: "I am happy to have my pump back". "My back hurts". Cognition: A/O X 4 Insight: Fair Judgment: Fair Interventions PRN's used: [place] 5/325 mg x2 Therapeutic interventions: 1:1 assessment, active listening, therapeutic conversation, medication administration/education/monitoring, FSGB monitoring, insulin administration per protocol, encouragement to attend groups, wound care, Q 15 min checks. Restraints/seclusion/emergency medication: N/A Justification of Continued Inpatient Treatment: Pt is here on a 5150 for GD, she is a Type I diabetic who has not been managing her sugars well, she was admitted for depression with worsening CAH. She needs medication adjustment and monitoring in a safe and therapeutic environment that can also manage her brittle DM.
[2019-01-08] MEDS: HYDROcodone/acetaminophen 5mg/325mg tablet PO PRN ×3 (03:26→18:58)
[2019-01-08 07:30] VITALS: BP 146/76
[2019-01-08] MEDS: atorvastatin 20mg tablet PO SCH (07:56)
[2019-01-08] MEDS: levetiracetam 250mg tablet PO SCH ×2 (07:57→20:25)
[2019-01-08] MEDS: pantoprazole 40mg Tablet.DR PO SCH (07:57)
[2019-01-08] MEDS: duloxetine 30mg CAPSULE.DR PO SCH ×2 (08:00→13:10)
[2019-01-08] MEDS ORDERED: clonazePAM 1mg tablet PO ONE (08:00)
[2019-01-08] MEDS: lurasidone 60mg tablet PO SCH (08:00)
[2019-01-08] MEDS: gabapentin 400mg capsule PO SCH ×3 (08:01→20:25)
[2019-01-08] MEDS: topiramate 100mg tablet PO SCH ×2 (08:02→20:25)
[2019-01-08] MEDS: busPIRone 5mg tablet PO SCH ×3 (08:02→20:25)
[2019-01-08] MEDS: ferrous sulfate 300mg/5ml UD oral liquid PO SCH (08:03)
[2019-01-08] MEDS: vitamin D (cholecalciferol) 1,000 unit tablet PO SCH (08:03)
[2019-01-08] MEDS: cloNIDine 0.1 mg tablet PO PRN ×2 (10:37→18:58)
[2019-01-08] MEDS: clonazePAM 0.5mg tablet PO SCH ×3 (13:10→20:25)
[2019-01-08] MEDS: hydrOXYzine 25 MG tablet PO PRN (15:19)
--- NOTE | 2019-01-08 17:30 | NUR ---
Nursing Progress Note: Margot Legal hold:5150 Client on involuntary status for GD Report received from nurse with use of Azalea LOPES RN Why are they here: Patient was placed on 5150 for GD from psychosis. Patient is hearing voices that are negative and command in nature. Patient has been doing what the voices say. They tell her to eat, and tell her she is stupid, among other things. Patient is also reporting depression. Assessment Pt. asleep at start of shift. Pt. took medications. Fasting AM BG was 108, noon was 329, and 1700 was 228. Pt. gave herself a total of 12.1 units of humulog for the day through her indwelling insulin pump for coverage. She has signed a safety contract. She is pleasant and cooperative with care. Denies SI, HI, but reports A/V hallucinations, that the voices help her with making decisions. Pt. eats all her meals in the community room. Pt. reported anxiety due to other agitated patients and given clonidine x2. She is observed napping intermittently throughout the day. She c/o back pain and PRN [place] was given x1 with good relief. Pt has a pressure ulcer on her coccyx, she sees wound care once a week and changes her dressing after showers. Wound cleaned after shower and Xeroform and optifoam island dressing applied to coccyx today C/D/I. S/I, H/I: Pt denies A/VH: Pt denies VH, +AH. Sleep: naps intermittently throughout the day ADL's: independent Group attendance: some Were meds taken: yes Any med S/E: None noted or reported Mental Status Exam Appearance: clean, dressed in street clothes Eye contact: Good Behavior: Pleasant, cooperative, isolative Speech: clear, audible, normal rate & rhythm Mood: "feeling better Affect: depressed, withdrawn Thought process: intact, linear Thought Content: "Im glad Im here, Im feeling better Cognition: A/O X 4 Insight: Fair Judgment: Fair Interventions PRN's used: [place] 5/325 mg x1, clonidine x2 Therapeutic interventions: 1:1 assessment, active listening, therapeutic conversation, medication administration/education/monitoring, FSGB monitoring, insulin administration per protocol, encouragement to attend groups, wound care, Q 15 min checks. Restraints/seclusion/emergency medication: N/A Justification of Continued Inpatient Treatment: Pt is here on a 5150 for GD, she is a Type I diabetic who has not been managing her sugars well, she was admitted for depression with worsening CAH. She needs medication adjustment and monitoring in a safe and therapeutic environment that can also manage her brittle DM.
[2019-01-08 19:53] VITALS: BP 112/80
--- NOTE | 2019-01-09 | NUR ---
Nursing Progress Note: Margot Legal hold:5150 Client on involuntary status for GD Report received from nurse with use of Moses LOPES RN Why are they here: Patient was placed on 5150 for GD from psychosis. Patient is hearing voices that are negative and command in nature. Patient has been doing what the voices say. They tell her to eat, and tell her she is stupid, among other things. Patient is also reporting depression. Assessment pt was in the hallway walking at change of shift. Pt requested norco for pain and clonidine for anxiety at change of shift. Pt spent evening playing board games and listening to music w/other patients. Pt reports she removed dressing from coccyx as it was bothersome. Pts wound was cleaned and new dressing applied, dressing was c/d/i at bedtime. Pt denies s/i, evening blood glucose was 259. S/I, H/I: Pt denies A/VH: Pt denies VH, +AH. Sleep: sleeping well ADL's: independent Group attendance: some Were meds taken: yes Any med S/E: None noted or reported Mental Status Exam Appearance: clean, dressed in street clothes Eye contact: Good Behavior: Pleasant, cooperative, i Speech: clear, audible, normal rate & rhythm Mood: "feeling better Affect: depressed, Thought process: intact, linear Thought Content: asking about meds Cognition: A/O X 4 Insight: Fair Judgment: Fair Interventions PRN's used: [place] 5/325 clonidine Therapeutic interventions: 1:1 assessment, active listening, therapeutic conversation, medication administration/education/monitoring, FSBG monitoring, insulin administration per protocol, encouragement to attend groups, wound care, Q 15 min checks. Restraints/seclusion/emergency medication: N/A Justification of Continued Inpatient Treatment: Pt is here on a 5150 for GD, she is a Type I diabetic who has not been managing her sugars well, she was admitted for depression with worsening CAH. She needs medication adjustment and monitoring in a safe and therapeutic environment that can also manage her brittle DM.
[2019-01-09] MEDS: HYDROcodone/acetaminophen 5mg/325mg tablet PO PRN ×3 (06:48→20:58)
[2019-01-09] MEDS: ferrous sulfate 300mg/5ml UD oral liquid PO SCH (07:08)
[2019-01-09] MEDS: lurasidone 60mg tablet PO SCH (07:11)
[2019-01-09] MEDS: pantoprazole 40mg Tablet.DR PO SCH (07:12)
[2019-01-09] MEDS: vitamin D (cholecalciferol) 1,000 unit tablet PO SCH (07:12)
[2019-01-09] MEDS: gabapentin 400mg capsule PO SCH ×3 (07:12→20:56)
[2019-01-09] MEDS: duloxetine 30mg CAPSULE.DR PO SCH ×2 (07:14→12:04)
[2019-01-09] MEDS: levetiracetam 250mg tablet PO SCH ×2 (07:14→20:56)
[2019-01-09] MEDS: topiramate 100mg tablet PO SCH ×2 (07:15→20:57)
[2019-01-09] MEDS: atorvastatin 20mg tablet PO SCH (07:15)
[2019-01-09] MEDS: busPIRone 5mg tablet PO SCH ×3 (07:16→20:57)
[2019-01-09 07:30] VITALS: BP 108/71
[2019-01-09 08:00] VITALS: BP 108/71
[2019-01-09] MEDS: cloNIDine 0.1 mg tablet PO PRN (08:56)
--- NOTE | 2019-01-09 09:53 | NUR ---
Reassessment: Per [facility] notes 01/07 pt with stage III PU to coccyx. Pt documented with 75-100% PO intake on CHO controlled diet, d/w dietary to send double eggs QD at breakfast and double protein TID to provide adequate protein to meet wound healing needs. Pt continues to not be appropriate for education at this time. [facility] 01/08. Will continue to follow closely. Rec: 1. continue carb controlled diet 2. Double eggs QD at breakfast; Double protein TID 3. DM/high protein eds once more appropriate 4. weekly wts Addendum: 01/09/19 at [address] Amended: Links added.
[2019-01-09] MEDS: hydrOXYzine 25 MG tablet PO PRN (12:02)
[2019-01-09] MEDS: clonazePAM 0.5mg tablet PO SCH ×3 (12:04→20:57)
--- NOTE | 2019-01-09 17:30 | NUR ---
Nursing Progress Note: Margot Legal hold:5150 Client on involuntary status for GD Report received from nurse with use of MARIANNE Tristan RN Why are they here: Patient was placed on 5150 for GD from psychosis. Patient is hearing voices that are negative and command in nature. Patient has been doing what the voices say. They tell her to eat, and tell her she is stupid, among other things. Patient is also reporting depression. Assessment Pt. asleep at start of shift. Pt. awake at 0700 and requesting medications. Pt. reports that her auditory hallucinations are worst in the morning time. Voices tell her things she needs to do but in a condescending way. Telling her to ask for her meds and report the insulin she uses. Pt. given her meds and took a shower. Pt. ate all meals in the community room. Pt. Pt.s CBG were AM 304, Noon 348, dinner 150. Pt. gave herself 3.6 units at breakfast, 4.2 units at AM snack, 5 units at lunch, and 5.3 units at dinner. Pt. received Challenge x2 for lower back pain with good effect and Clonidine and hydroxyzine x1 for anxiety. Pt. reports she is struggling today because her dog today. Pt. has stage 3 pressure area on coccyx. No drainage noted. After pt. showered wound was was cleansed with normal saline and patted dry with gauze and covered with Xeroform and optifoam island dressing. S/I, H/I: Pt denies A/VH: Pt denies VH, + Auditory hallucinations Sleep: Pt. napped x2 on day shift. ADL's: independent Group attendance: yes Were meds taken: yes Any med S/E: None noted or reported Mental Status Exam Appearance: clean, dressed in street clothes. Eye contact: Good Behavior: Pleasant, cooperative Speech: clear, audible, normal rate & rhythm Mood: "Ok Affect: depressed Thought process: intact Thought Content: feels lousy, doesn't know why she is here Cognition: A/O X 4 Insight: Fair Judgment: Fair Interventions PRN's used: [place] 5/325 mg x2, hydroxyzine 50mg x1, Clonidine 0.1mg x1 Therapeutic interventions: 1:1 assessment, active listening, therapeutic conversation, medication administration/education/monitoring, FSGB monitoring, insulin administration per protocol, encouragement to attend groups, wound care, Q 15 min checks. Restraints/seclusion/emergency medication: N/A Justification of Continued Inpatient Treatment: Pt is here on a 5150 for GD, she is a Type I diabetic who has not been managing her sugars well, she was admitted for depression with worsening CAH. She needs medication adjustment and monitoring in a safe and therapeutic environment that can also manage her brittle DM.
[2019-01-09 19:45] VITALS: BP 112/75
[2019-01-09] MEDS: haloperidol 1mg tablet PO SCH (21:10)
--- NOTE | 2019-01-09 22:51 | NUR ---
Nursing Progress Note: Margot Legal hold: VOL Client on involuntary status for GD Report received from nurse with use of MARIANNE Talley RN Why are they here: Patient was placed on 5150 for GD from psychosis. Patient is hearing voices that are negative and command in nature. Patient has been doing what the voices say. They tell her to eat, and tell her she is stupid, among other things. Patient is also reporting depression. Assessment Pt was resting in bed at change of shift. She reports her day was bad because she had auditory hallucinations last later into the day that usual. She isolated to her room for the remainder of the shift. Pt denies s/i. Pt reports her appetite has been high, she feels always hungry and asked for a snack during assessment. pts evening blood glucose was 361 and she gave herself 3.2 units of insulin. Pts wound on her coccyx was cleaned with NS and xeroform, guaze and optifoam dressing was applied. Pt states that gauze over the xeroform gives her more padding and keeps the xeroform in place. Also if the optifoam pad is placed at a diagonal angle it tends to keep the xeroform in place, this is how she dresses it at home. Xeroform was missing in previous dressing and pt states she think it falls out when she goes to the bathroom. S/I, H/I: Pt denies A/VH: Pt denies VH, + Auditory hallucinations during the day, reports no AVH this evening. Sleep: Pt. reports sleeping well at night ADL's: independent Group attendance: no evening groups Were meds taken: yes Any med S/E: None noted or reported Mental Status Exam Appearance: clean, dressed in street clothes. Eye contact: Good Behavior: Pleasant, cooperative Speech: clear, audible, normal rate & rhythm Mood: "Im ok" Affect: depressed Thought process: intact Thought Content: talking about voices not going away until late in the day Cognition: A/O X 4 Insight: Fair Judgment: Fair Interventions PRN's used: [place] 5/325 mg. Therapeutic interventions: 1:1 assessment, active listening, therapeutic conversation, medication administration/education/monitoring, FSGB monitoring, insulin administration per protocol, encouragement to attend groups, wound care, Q 15 min checks. Restraints/seclusion/emergency medication: N/A Justification of Continued Inpatient Treatment: Pt is here on a 5150 for GD, she is a Type I diabetic who has not been managing her sugars well, she was admitted for depression with worsening CAH. She needs medication adjustment and monitoring in a safe and therapeutic environment that can also manage her brittle DM.
[2019-01-10] MEDS: acetaminophen 325mg tablet PO PRN (01:16)
[2019-01-10] MEDS: HYDROcodone/acetaminophen 5mg/325mg tablet PO PRN ×4 (04:40→23:30)
[2019-01-10] MEDS: atorvastatin 20mg tablet PO SCH (07:53)
[2019-01-10] MEDS: levetiracetam 250mg tablet PO SCH ×2 (07:53→20:54)
[2019-01-10] MEDS: vitamin D (cholecalciferol) 1,000 unit tablet PO SCH (07:55)
[2019-01-10] MEDS: topiramate 100mg tablet PO SCH ×2 (07:56→20:53)
[2019-01-10] MEDS: gabapentin 400mg capsule PO SCH ×3 (07:56→20:54)
[2019-01-10] MEDS: busPIRone 5mg tablet PO SCH ×3 (07:56→20:54)
[2019-01-10] MEDS: ferrous sulfate 300mg/5ml UD oral liquid PO SCH (07:57)
[2019-01-10] MEDS: pantoprazole 40mg Tablet.DR PO SCH (07:57)
[2019-01-10] MEDS: duloxetine 30mg CAPSULE.DR PO SCH ×2 (07:57→12:44)
[2019-01-10 08:00] VITALS: BP 108/77
[2019-01-10] MEDS: lurasidone 60mg tablet PO SCH (08:07)
[2019-01-10] MEDS: cloNIDine 0.1 mg tablet PO PRN (10:25)
[2019-01-10] MEDS: clonazePAM 0.5mg tablet PO SCH ×3 (12:45→20:53)
[2019-01-10] MEDS: hydrOXYzine 25 MG tablet PO PRN (15:23)
[2019-01-10] MEDS ORDERED: CLON-514 PO (16:27)
[2019-01-10] MEDS ORDERED: HYDR50TA65 PO (16:27)
[2019-01-10] MEDS ORDERED: DULO-31 PO (16:27)
[2019-01-10] MEDS ORDERED: DULO60CA65 PO (16:27)
[2019-01-10] MEDS ORDERED: BUSP15TA14 PO (16:27)
[2019-01-10] MEDS ORDERED: HYDR-4383 PO (16:27)
[2019-01-10] MEDS ORDERED: HALO1TAB PO (16:27)
[2019-01-10] MEDS ORDERED: CLON0.1T2 PO (16:27)
[2019-01-10] MEDS ORDERED: TRAZ-251 PO (16:27)
[2019-01-10] MEDS ORDERED: LURA60TA2 PO (16:27)
--- NOTE | 2019-01-10 17:45 | NUR ---
Nursing Progress Note: Margot Legal hold: VOL Client on involuntary status for GD Report received from nurse with use of MARIANNE Tristan RN Why are they here: Patient was placed on 5150 for GD from psychosis. Patient is hearing voices that are negative and command in nature. Patient has been doing what the voices say. They tell her to eat, and tell her she is stupid, among other things. Patient is also reporting depression. Assessment Pt. awake at start of shift and requesting medication for indigestion. Pt. given Maalox with good effect. Pt. took all medications and ate all meals in community room. 1:1 done at bedside, pt. reports she is feeling much better than yesterday, pt. reports she feels that the Haldol is helping her. Pt. given [place] for pain x2 today and Clonidine x1 and Atarax x1 for anxiety. Pt.s CBG were AM 247, Noon 265, Dinner 227. Pt. gave herself a total of 8 units of insulin through her insulin pump for the day. S/I, H/I: Pt denies A/VH: Pt denies Sleep: Pt. reports sleeping well at night pt did not nap during day shift. ADL's: independent Group attendance: Pt. went to groups. Were meds taken: yes Any med S/E: None noted or reported Mental Status Exam Appearance: clean, dressed in street clothes. Eye contact: Good Behavior: Pleasant, cooperative Speech: clear, audible, normal rate & rhythm Mood: "better today Affect: Congruent with mood Thought process:linear Thought Content: focused on discharge. Cognition: A/O X 4 Insight: Fair Judgment: Fair Interventions PRN's used: [place] 5/325 mgx2, Clonidine and atarax x1 Therapeutic interventions: 1:1 assessment, active listening, therapeutic conversation, medication administration/education/monitoring, FSGB monitoring, insulin administration per protocol, encouragement to attend groups, wound care, Q 15 min checks. Restraints/seclusion/emergency medication: N/A Justification of Continued Inpatient Treatment: Pt is here on a 5150 for GD, she is a Type I diabetic who has not been managing her sugars well, she was admitted for depression with worsening CAH. She needs medication adjustment and monitoring in a safe and therapeutic environment that can also manage her brittle DM.
[2019-01-10 19:57] VITALS: BP 101/68
[2019-01-10] MEDS: haloperidol 1mg tablet PO SCH (20:54)
[2019-01-10 21:15] VITALS: BP 101/68
[2019-01-10] MEDS: traZODone 50mg tablet PO PRN (21:20)
--- NOTE | 2019-01-10 23:09 | NUR ---
Nursing Progress Note: Margot Legal hold: VOL Client on involuntary status for GD Report received from nurse with use of MARIANNE Talley RN Why are they here: Patient was placed on 5150 for GD from psychosis. Patient is hearing voices that are negative and command in nature. Patient has been doing what the voices say. They tell her to eat, and tell her she is stupid, among other things. Patient is also reporting depression. Assessment Pt was in the hallway at change of shift. She reports feeling really hungry despite eating dinner. Pt reports having a good day today and is feeling excited about going home. She says she is happy this is the first day she is not hearing any voices. pt become somewhat agitated when the techs told her she would have to ask her nurse if she could have a burrito, Pt raised her voice and said "Im not a child and I shouldnt be treated like one!" Pt ate a burrito at snack time. Pts ABG was 264 and she administered 4.4 units of insulin this evening. pt requested trazadone to help with sleep and is med compliant. She declined having her dressing changed on her wound stating it was changed twice during day shift. Dressing is c/d/i at HS. S/I, H/I: Pt denies A/VH: Pt denies Sleep: Pt requested trazadone stating she had trouble falling asleep ADL's: independent Group attendance: Pt had snack with the group Were meds taken: yes Any med S/E: None noted or reported Mental Status Exam Appearance: clean, dressed in street clothes. Eye contact: Good Behavior: Pleasant, cooperative Speech: clear, audible, normal rate & rhythm Mood: "better today Affect: Congruent with mood Thought process:linear Thought Content: focused on discharge. Cognition: A/O X 4 Insight: Fair Judgment: Fair Interventions PRN's used: trazadone Therapeutic interventions: 1:1 assessment, active listening, therapeutic conversation, medication administration/education/monitoring, FSGB monitoring, insulin administration per protocol, encouragement to attend groups, wound care, Q 15 min checks. Restraints/seclusion/emergency medication: N/A Justification of Continued Inpatient Treatment: Pt is here on a 5150 for GD, she is a Type I diabetic who has not been managing her sugars well, she was admitted for depression with worsening CAH. She needs medication adjustment and monitoring in a safe and therapeutic environment that can also manage her brittle DM.
[2019-01-11] MEDS: vitamin D (cholecalciferol) 1,000 unit tablet PO SCH (07:53)
[2019-01-11] MEDS: busPIRone 5mg tablet PO SCH (07:53)
[2019-01-11] MEDS: ferrous sulfate 300mg/5ml UD oral liquid PO SCH (07:53)
[2019-01-11] MEDS: gabapentin 400mg capsule PO SCH (07:54)
[2019-01-11] MEDS: lurasidone 60mg tablet PO SCH (07:54)
[2019-01-11] MEDS: atorvastatin 20mg tablet PO SCH (07:54)
[2019-01-11] MEDS: pantoprazole 40mg Tablet.DR PO SCH (07:55)
[2019-01-11] MEDS: duloxetine 30mg CAPSULE.DR PO SCH (07:55)
[2019-01-11] MEDS: levetiracetam 250mg tablet PO SCH (07:55)
[2019-01-11] MEDS: topiramate 100mg tablet PO SCH (07:55)
[2019-01-11 08:00] VITALS: BP 101/61
[2019-01-11] MEDS: HYDROcodone/acetaminophen 5mg/325mg tablet PO PRN (08:27)
--- NOTE | 2019-01-11 09:45 | NUR ---
DISCHARGE NOTE Patient is discharged from unit at 0935, left the unit ambulatory and accompanied by NEREYDA Cardona. Patient does not exhibit any S/S of distress. Discharge instructions are gone over with patient and patient verbalizes understanding. Patient states that she needed to come onto the unit because she was not doing well and needed medication adjustments. Patient states that she feels better and is ready to discharge. Patient does not use Nicotine and nicotine replacement is not offered.
--- NOTE | 2019-01-11 11:27 | NUR ---
Reassessment: Pt PO 75-100% avg carb controlled meals meeting needs. LBM 01/10. Will continue to monitor. Rec: 1. continue carb controlled diet 2. Double eggs QD at breakfast; Double protein TID 3. DM/high protein eds once more appropriate 4. weekly wts Addendum: 01/11/19 at [address] Amended: Links added.
== END 2019-01-11 09:35 | disposition home or self-care (01) | DRG 885 ==
LOC: ADULT MH 21:23
PROVIDERS: ADMIT Psychiatry & Neurology Psychiatry; ATTEND Psychiatry & Neurology Psychiatry
DX: F33.3 Major depressive disorder, recurrent, severe with psychotic symptoms (principal); G40.909 Epilepsy, unspecified, not intractable, without status epilepticus; F41.9 Anxiety disorder, unspecified; G89.29 Other chronic pain; M54.9 Dorsalgia, unspecified; F43.10 Post-traumatic stress disorder, unspecified; E78.5 Hyperlipidemia, unspecified; E78.00 Pure hypercholesterolemia, unspecified; E10.9 Type 1 diabetes mellitus without complications; F17.210 Nicotine dependence, cigarettes, uncomplicated; Z96.41 Presence of insulin pump (external) (internal); Z79.4 Long term (current) use of insulin; Z83.3 Family history of diabetes mellitus; Z98.84 Bariatric surgery status; Z90.49 Acquired absence of other specified parts of digestive tract; Z88.0 Allergy status to penicillin; Z88.2 Allergy status to sulfonamides; Z79.899 Other long term (current) drug therapy
CPT/HCPCS: 36415; 80053; 80061; 80305; 80320; 81001; 81025; 82948; 83036; 84443; 85025; J1815; J8597; Z7610

== ENCOUNTER 2019-09-02 13:34 | Inpatient (IN) | payer MEDICARE, MEDICAID ==
[~2019-09-02] VITALS: Ht 162.6 cm; Wt 70.3 kg
[~2019-09-02 13:34] MED LIST changes: -BUSP10TA11 PO; +BUSP15TA14 PO; -CHOL400T14 PO; +CLON-514 PO; -CLON-528 PO; +CLON0.1T2 PO; -DULO30CA52 PO; -GABA600T13 PO; +HALO1TAB PO; +HYDR-4383 PO; +HYDR50TA65 PO; -LEVE500T PO; -LURA20TA PO; +LURA60TA2 PO; -LURA80TA3 PO; -METO-292 PO; -NICO-631 TD; -ONDA8TAB13 PO
[2019-09-02] MEDS ORDERED: ONDA4TAB6 PO (14:24)
[2019-09-02] MEDS ORDERED: BUPR2TAB11 SL (14:24)
[2019-09-02] MEDS ORDERED: LEVE750T6 PO (14:24)
[2019-09-02] MEDS ORDERED: DULO30CA52 PO ×2 (14:24→14:41)
[2019-09-02] MEDS ORDERED: GABA-534 PO (14:28)
[2019-09-02] MEDS ORDERED: GABA600T13 PO (14:28)
[2019-09-02] MEDS ORDERED: LURA80TA3 PO (14:28)
[2019-09-02] MEDS ORDERED: vancomycin/NS 1 GM ADD-VANTAGE 250 ML IV ONE (14:30)
[2019-09-02] MEDS ORDERED: normal saline 1000ML IV soln IV ONE (14:30)
[2019-09-02] MEDS ORDERED: CLON-418 PO (14:31)
[2019-09-02] MEDS ORDERED: HYDR50TA65 PO (14:41)
[2019-09-02] MEDS ORDERED: ACET-2778 PO (14:41)
[2019-09-02] MEDS ORDERED: PANT-47 PO (14:41)
[2019-09-02] MEDS ORDERED: CLON-513 PO (14:41)
[2019-09-02] MEDS ORDERED: BUSP10TA3 PO (14:41)
[2019-09-02] MEDS ORDERED: HALO2TAB PO (14:41)
[2019-09-02] MEDS ORDERED: ATOR40TA14 PO (14:41)
--- NOTE | 2019-09-02 14:41 | NUR ---
PICC RN returned call, will present to ED for US guided PIV
[2019-09-02 15:41] LABS: PARTIAL THROMBOPLASTIN TIME 45 SECONDS (22-32)
[2019-09-02 15:42] LABS: EOSINOPHILS % (AUTO) 0.1 % (0-6); HEMOGLOBIN 9.6 g/dl (12.0-16.0)
[2019-09-02 15:43] LABS: ALANINE AMINOTRANSFERASE 335 U/L (12-78); ALBUMIN 2.2 G/DL (3.4-5.0); ALBUMIN/GLOBULIN RATIO 0.6 (1.1-1.5); ALKALINE PHOSPHATASE 243 IU/L (46-116); ANION GAP 13 (8-16); ASPARTATE AMINO TRANSFERASE 425 U/L (10-37); BILIRUBIN,TOTAL 0.7 MG/DL (0.1-1.0); BLOOD UREA NITROGEN 47 MG/DL (7-18); BUN/CREATININE RATIO 7.6 (6.6-38.0); CALCIUM 7.1 MG/DL (8.5-10.1); CHLORIDE 95 MMOL/L (99-107); CREATININE 6.19 MG/DL (0.40-0.90); GLUCOSE 62 MG/DL (70-104); MAGNESIUM 1.9 MG/DL (1.5-2.4); POTASSIUM 4.7 MMOL/L (3.5-5.1); SODIUM 130 MMOL/L (135-145); TOTAL CARBON DIOXIDE 22.2 MMOL/L (24-32); TOTAL PROTEIN 5.7 G/DL (6.4-8.2); eGFR 8 ML/MIN
[2019-09-02 15:51] LABS: BASOPHILS # (AUTO) 0.2 X10'3 (0-0.2); BASOPHILS % (AUTO) 0.6 % (0-1); HEMATOCRIT 31.5 % (35.0-45.0); LYMPHOCYTES # (AUTO) 0.4 X10'3 (1.1-4.8); LYMPHOCYTES % (AUTO) 1.3 % (21-51); MEAN CORPUSCULAR HEMOGLOBIN 17.2 PG (27.0-31.0); MEAN CORPUSCULAR HGB CONC 30.4 g/dL (33.0-36.5); MEAN CORPUSCULAR VOLUME 56.7 FL (78-98); MEAN PLATELET VOLUME 8.4 FL (7.4-10.4); MONOCYTES # (AUTO) 4.1 X10'3 (0-0.9); MONOCYTES % (AUTO) 13.6 % (2-12); NEUTROPHILS # (AUTO) 25.6 X10'3 (1.8-7.7); NEUTROPHILS % (AUTO) 84.4 % (42-75); PLATELET COUNT 112 X10'3 (140-440); RED BLOOD COUNT 5.55 X10'6 (4.20-5.60); RED CELL DISTRIBUTION WIDTH 25.1 % (11.5-14.5)
[2019-09-02] MEDS ORDERED: normal saline 1000ML IV soln IVB ONE ×3 (16:00→18:50)
[2019-09-02 16:01] LABS: WHITE BLOOD COUNT 30.4 X10'3 (4.5-11.0)
[2019-09-02 16:07] LABS: TOTAL CELLS COUNTED 200
[2019-09-02 16:08] LABS: MYELOCYTES % (MANUAL) 0 % (0-0); PLATELET ESTIMATE DECREASED
[2019-09-02] MEDS ORDERED: LIDOcaine 2% 10ml TOPICAL JELLY (Urojet) TP ONE (16:10)
[2019-09-02 16:13] LABS: ELLIPTOCYTES FEW; HYPOCHROMASIA 1+; MICROCYTOSIS 3+; POIKILOCYTOSIS 2+; POLYCHROMASIA 2+; SCHISTOCYTES 2+; SPHEROCYTES FEW; TEAR DROP CELLS FEW
[2019-09-02 16:15] LABS: ROULEAUX 1+
[2019-09-02 16:38] LABS: CREATINE KINASE 88 U/L (26-192)
[2019-09-02] MEDS ORDERED: dextrose 50%-water 50ml dispensing syringe IV ONE (16:45)
--- NOTE | 2019-09-02 16:49 | NUR ---
Patient confused with garbled speech. Dr. Lee notified. Blood sugar checked which is 42. Dr. Lee notified and an amp of d50 given to the patient whose mentation immediately improves.
--- NOTE | 2019-09-02 18:55 | NUR ---
pt has had no output since cochran was inserted. Bladder scanned pt 4 ml in bladder.
--- NOTE | 2019-09-02 19:07 | NUR ---
2 liters of NS ordered. MD aware of GFR of 8 and 4 ml of urine in bladder. Lung sounds clear and no edema noted BUE and BLL
[2019-09-02 19:09] LABS: ETHANOL < 0.010 GM/DL (0.0-0.010)
[2019-09-02] MEDS ORDERED: dextrose 5%-water 1,000 ML IV ONE (20:00)
--- NOTE | 2019-09-02 20:57 | NUR ---
Blanca [phone] patients mother called for an update. She said we may call with an questions.
--- NOTE | 2019-09-02 21:16 | NUR ---
Pt became aggitated. HR went into 160s to 170s. BS 127 Lungs have crakles bilat bases. EKG down fluids held. labs drawn. Will continue to monitor.
[2019-09-02] MEDS ORDERED: LORazepam 2 mg/ml vial IV ONE (21:20)
[2019-09-02 21:39] LABS: ACETAMINOPHEN < 2.0 UG/ML (10-30)
[2019-09-02] MEDS ORDERED: glucagon, human recombinant 1mg kit SUBCUT PRN (21:45)
[2019-09-02] MEDS ORDERED: dextrose ORAL solution 15 GM/59 ML bottle PO PRN ×2 (21:45)
[2019-09-02] MEDS ORDERED: acetaminophen 650mg rectal suppository RC PRN (21:45)
[2019-09-02] MEDS ORDERED: dextrose 50%-water 50ml dispensing syringe IV PRN ×2 (21:45)
[2019-09-02] MEDS ORDERED: acetaminophen 325mg tablet PO PRN ×2 (21:45)
[2019-09-02 22:20] LABS: HEMOGLOBIN A1C 11.9 % (4.5-6.2)
[2019-09-02 22:25] LABS: ALANINE AMINOTRANSFERASE 241 U/L (12-78); ALBUMIN 1.7 G/DL (3.4-5.0); ALBUMIN/GLOBULIN RATIO 0.6 (1.1-1.5); ALKALINE PHOSPHATASE 194 IU/L (46-116); AMYLASE 20 U/L (25-115); ANION GAP 15 (8-16); ASPARTATE AMINO TRANSFERASE 273 U/L (10-37); BILIRUBIN,TOTAL 0.6 MG/DL (0.1-1.0); BLOOD UREA NITROGEN 45 MG/DL (7-18); BUN/CREATININE RATIO 8.1 (6.6-38.0); CHLORIDE 104 MMOL/L (99-107); CREATININE 5.59 MG/DL (0.40-0.90); GLUCOSE 150 MG/DL (70-104); LIPASE < 50 U/L (73-393); POTASSIUM 4.6 MMOL/L (3.5-5.1); SODIUM 133 MMOL/L (135-145); TOTAL PROTEIN 4.6 G/DL (6.4-8.2); eGFR 9 ML/MIN
[2019-09-02 22:28] LABS: CALCIUM 5.9 MG/DL (8.5-10.1); TOTAL CARBON DIOXIDE 14.2 MMOL/L (24-32)
[2019-09-02] MEDS: ondansetron/PF 4mg/2ml inj IV PRN (22:35)
[2019-09-02 22:59] LABS: PHOSPHORUS 4.8 MG/DL (2.3-4.5)
--- NOTE | 2019-09-02 23:20 | NUR ---
Patient here from ER into room CICU 2009. I have received report from Brittni ADAMES and had the opportunity to ask questions and assume patient care.
[2019-09-02 23:30] VITALS: BP 117/75
[2019-09-02] MEDS: sodium bicarbonate (8.4%) inj. 150 MEQ in dextrose 5%-water 1,000 ML IV SCH (23:35)
[2019-09-02] MEDS: levoFLOXACIN-Levaquin 250mg/D5 50 ML IV SCH (23:56)
[2019-09-03] VITALS (24 sets, daily range): BP systolic 94–130; BP diastolic 60–85
[2019-09-03] MEDS ORDERED: calcium chloride 100 MG/1 ML inj IV ONE (00:10)
--- NOTE | 2019-09-03 01:12 | NUR ---
Patient awake, mumbles occasionally, but answering questions appropriately. Tachycardic, HR:127, BP@0113:124/71, Sats:98% on RA.
[2019-09-03] MEDS: metroNIDAZOLE-Flagyl 500mg/NS 100 ML IV SCH ×3 (03:20→16:44)
[2019-09-03 04:01] LABS: BASOPHILS % (AUTO) 0.1 % (0-1); EOSINOPHILS % (AUTO) 0.1 % (0-6); HEMOGLOBIN 8.2 g/dl (12.0-16.0); NEUTROPHILS # (AUTO) 22.3 X10'3 (1.8-7.7); NEUTROPHILS % (AUTO) 85.9 % (42-75)
[2019-09-03 04:02] LABS: HEMATOCRIT 27.7 % (35.0-45.0); LYMPHOCYTES # (AUTO) 0.6 X10'3 (1.1-4.8); LYMPHOCYTES % (AUTO) 2.3 % (21-51); MEAN CORPUSCULAR HEMOGLOBIN 17.4 PG (27.0-31.0); MEAN CORPUSCULAR HGB CONC 29.5 g/dL (33.0-36.5); MEAN CORPUSCULAR VOLUME 59.1 FL (78-98); MEAN PLATELET VOLUME 8.8 FL (7.4-10.4); MONOCYTES % (AUTO) 11.6 % (2-12); PLATELET COUNT 136 X10'3 (140-440); RED BLOOD COUNT 4.69 X10'6 (4.20-5.60); RED CELL DISTRIBUTION WIDTH 24.5 % (11.5-14.5)
[2019-09-03 04:08] LABS: ALANINE AMINOTRANSFERASE 208 U/L (12-78); ALBUMIN 1.7 G/DL (3.4-5.0); ALBUMIN/GLOBULIN RATIO 0.6 (1.1-1.5); ALKALINE PHOSPHATASE 184 IU/L (46-116); ANION GAP 19 (8-16); ASPARTATE AMINO TRANSFERASE 170 U/L (10-37); BILIRUBIN,TOTAL 0.6 MG/DL (0.1-1.0); BLOOD UREA NITROGEN 51 MG/DL (7-18); BUN/CREATININE RATIO 8.8 (6.6-38.0); CALCIUM 7.4 MG/DL (8.5-10.1); CHLORIDE 99 MMOL/L (99-107); CREATININE 5.81 MG/DL (0.40-0.90); GLUCOSE 254 MG/DL (70-104); MAGNESIUM 1.6 MG/DL (1.5-2.4); PHOSPHORUS 5.8 MG/DL (2.3-4.5); POTASSIUM 5.1 MMOL/L (3.5-5.1); SODIUM 130 MMOL/L (135-145); TOTAL PROTEIN 4.6 G/DL (6.4-8.2); eGFR 8 ML/MIN
[2019-09-03 04:09] LABS: TOTAL CARBON DIOXIDE 12.2 MMOL/L (24-32)
[2019-09-03 04:25] LABS: ANISOCYTOSIS 3+; PLATELET ESTIMATE DECREASED; TOTAL CELLS COUNTED 100
[2019-09-03 04:26] LABS: ELLIPTOCYTES FEW; HYPOCHROMASIA 1+; MICROCYTOSIS 3+; POIKILOCYTOSIS 2+; POLYCHROMASIA 1+; SCHISTOCYTES 1+; TEAR DROP CELLS FEW
[2019-09-03 04:27] LABS: BURR CELLS FEW; SPHEROCYTES FEW
[2019-09-03] MEDS ORDERED: MESSAGE TO PHARMACY PO ONE (04:50)
[2019-09-03] MEDS: ondansetron/PF 4mg/2ml inj IV PRN (05:06)
[2019-09-03 05:10] LABS: ABG BASE EXCESS -18.3 mmol/L (-2.0-2.0); ABG HCO3 7.2 mmol/L (22.0-26.0); ABG OXYGEN SATURATION 96.2 % (94-97); ABG PCO2 (T) 16.8 mmHg (32.0-45.0); ABG PO2 (T) 109.7 mmHg (75.0-100.0); ALLEN'S TEST POSITIVE; FCOHb 0.3 % (0.0-3.9); FMetHb 0.3 % (0.0-1.5); FO2Hb 95.6 % (94-97); PATIENT TEMPERATURE 36.4; TOTAL HEMOGLOBIN 8.9 G/dl (12.0-16.0)
--- NOTE | 2019-09-03 05:21 | NUR ---
Katelyn at bedside, AM labs reviewed. Dr. Ayala updated. Patient still confused at times, restless. Zofran given x1 for nausea. Will continue to monitor
--- NOTE | 2019-09-03 06:15 | NUR ---
Patient in room CICU 2009. I have received report from ZACARIAS Paniagua and had the opportunity to ask questions and assume patient care.
--- NOTE | 2019-09-03 06:21 | NUR ---
Problems reprioritized. Patient report given, questions answered & plan of care reviewed with Guillermina ADAMES.
[2019-09-03] MEDS: pantoprazole 40 MG vial IV SCH (07:21)
[2019-09-03] MEDS: atorvastatin 20mg tablet PO SCH (07:22)
[2019-09-03] MEDS: docusate sod 100mg capsule PO SCH ×2 (07:22→20:00)
[2019-09-03] MEDS: levetiracetam 250mg tablet PO SCH ×2 (07:22→20:47)
[2019-09-03] MEDS: heparin, porcine 5000 units/ml vial SQ SCH ×2 (07:22→20:47)
[2019-09-03] MEDS: buprenorphine/naloxone 2-0.5mg sublingual tablet SL SCH ×2 (07:54→20:00)
[2019-09-03] MEDS: insulin Lispro (HumaLOG) vial - multi-dose SQ SCH (08:10)
[2019-09-03] MEDS: sodium bicarbonate (8.4%) inj. 150 MEQ in dextrose 5%-water 1,000 ML IV SCH ×2 (10:15→21:43)
--- NOTE | 2019-09-03 11:48 | NUR ---
Pt with T1DM, with an insulin pump per RN at critical care rounds. Current A1c is 11.9%, down from 13.0% in December of last year per records. Pt currently documented as A/O x 1 and confused. DM education not appropriate at this time. Pt admit with AMS, sepsis, and GARY. Currently on a clear liquid diet. LBM 08/31, with PRN bowel care available. Will continue to follow closely. Recommendations: 1) Advance to CHO controlled diet as medically indicated 2) Monitor need for ONS 3) Bowel care PRN 4) Scaled weights per rx Addendum: 09/03/19 at [address] Amended: Links added.
--- NOTE | 2019-09-03 15:32 | NUR ---
Pt taken to IR for TDC placement
[2019-09-03] MEDS ORDERED: heparin 1,000unit/ml 10ml vial 10 ML ONE (15:48)
[2019-09-03] MEDS ORDERED: LIDOcaine 1%/PF 5ML 10 MG/ML VIAL ONE (15:48)
[2019-09-03] MEDS ORDERED: fentaNYL/PF 50MCG/1 ML 2ML syringe ONE (15:49)
[2019-09-03] MEDS ORDERED: midazolam 2 mg/2 ml injection ONE (15:49)
[2019-09-03] MEDS ORDERED: normal saline 1000ml 250 ML IV PRN (16:16)
[2019-09-03] MEDS ORDERED: heparin 1,000unit/ml 10ml vial 10 ML IV ONE (16:16)
[2019-09-03] MEDS ORDERED: epoetin 20,000 units/ml inj IV ONE (16:20)
[2019-09-03] MEDS ORDERED: heparin 1,000 units/ml 10ml inj HE ONE ×2 (16:20)
--- NOTE | 2019-09-03 18:28 | NUR ---
Patient in room CICU 2009. I have received report from jarod hernandez and had the opportunity to ask questions and assume patient care.
[2019-09-03] MEDS: lactobacillus rhamnosus 10,000 MMU CELLS/CAPSULE PO SCH (20:46)
[2019-09-03] MEDS: insulin glargine (Lantus) pen - multi-dose SQ SCH (20:50)
--- NOTE | 2019-09-03 20:59 | NUR ---
pt reports she just doesn't feel good but will not explain what that means. pt is currently A&Ox2 and mumbles incoherently at times.
[2019-09-03] MEDS: levoFLOXACIN-Levaquin 250mg/D5 50 ML IV SCH (21:42)
[2019-09-04] VITALS (24 sets, daily range): BP systolic 87–118; BP diastolic 45–83
[2019-09-04] MEDS: metroNIDAZOLE-Flagyl 500mg/NS 100 ML IV SCH ×3 (00:21→15:18)
[2019-09-04] MEDS: insulin Lispro (HumaLOG) vial - multi-dose SQ SCH ×3 (02:23→12:57)
--- NOTE | 2019-09-04 03:09 | NUR ---
pt laying in bed mumbling incoherently. attempt to decipher what patient is trying to say but was unsuccessful. Asked pt if she is cold and she nodded yes so warm blankets were provided but was unable to figure out anything else will continue to monitor
[2019-09-04 05:23] LABS: BASOPHILS # (AUTO) 0.1 X10'3 (0-0.2); BASOPHILS % (AUTO) 0.4 % (0-1); EOSINOPHILS # (AUTO) 0.1 X10'3 (0-0.9); EOSINOPHILS % (AUTO) 0.6 % (0-6); HEMATOCRIT 26.2 % (35.0-45.0); HEMOGLOBIN 7.7 g/dl (12.0-16.0); LYMPHOCYTES # (AUTO) 4.7 X10'3 (1.1-4.8); LYMPHOCYTES % (AUTO) 22.9 % (21-51); MEAN CORPUSCULAR HEMOGLOBIN 16.8 PG (27.0-31.0); MEAN CORPUSCULAR HGB CONC 29.2 g/dL (33.0-36.5); MEAN CORPUSCULAR VOLUME 57.3 FL (78-98); MEAN PLATELET VOLUME 8.3 FL (7.4-10.4); MONOCYTES # (AUTO) 1.3 X10'3 (0-0.9); MONOCYTES % (AUTO) 6.4 % (2-12); NEUTROPHILS # (AUTO) 14.4 X10'3 (1.8-7.7); NEUTROPHILS % (AUTO) 69.7 % (42-75); PLATELET COUNT 179 X10'3 (140-440); RED BLOOD COUNT 4.57 X10'6 (4.20-5.60); RED CELL DISTRIBUTION WIDTH 24.9 % (11.5-14.5); WHITE BLOOD COUNT 20.6 X10'3 (4.5-11.0)
[2019-09-04 05:50] LABS: ALANINE AMINOTRANSFERASE 143 U/L (12-78); ALBUMIN 1.5 G/DL (3.4-5.0); ALBUMIN/GLOBULIN RATIO 0.5 (1.1-1.5); ALKALINE PHOSPHATASE 157 IU/L (46-116); ANION GAP 14 (8-16); ASPARTATE AMINO TRANSFERASE 90 U/L (10-37); BILIRUBIN,TOTAL 0.5 MG/DL (0.1-1.0); BLOOD UREA NITROGEN 42 MG/DL (7-18); BUN/CREATININE RATIO 8.6 (6.6-38.0); CALCIUM 6.6 MG/DL (8.5-10.1); CHLORIDE 98 MMOL/L (99-107); CREATININE 4.91 MG/DL (0.40-0.90); GLUCOSE 322 MG/DL (70-104); MAGNESIUM 1.6 MG/DL (1.5-2.4); PHOSPHORUS 5.8 MG/DL (2.3-4.5); POTASSIUM 3.8 MMOL/L (3.5-5.1); SODIUM 133 MMOL/L (135-145); TOTAL CARBON DIOXIDE 20.9 MMOL/L (24-32); TOTAL PROTEIN 4.5 G/DL (6.4-8.2); eGFR 10 ML/MIN
--- NOTE | 2019-09-04 06:06 | NUR ---
Problems reprioritized. Patient report given, questions answered & plan of care reviewed with jarod hernandez.
[2019-09-04 07:04] LABS: ANISOCYTOSIS 3+; PLATELET ESTIMATE NORMAL; TOTAL CELLS COUNTED 100
[2019-09-04 07:05] LABS: MICROCYTOSIS 3+
[2019-09-04 07:06] LABS: POLYCHROMASIA 1+; SCHISTOCYTES 1+
[2019-09-04 07:07] LABS: BURR CELLS FEW; HYPOCHROMASIA 1+; POIKILOCYTOSIS 2+
[2019-09-04] MEDS: pantoprazole 40 MG vial IV SCH (07:49)
[2019-09-04] MEDS: atorvastatin 20mg tablet PO SCH (07:49)
[2019-09-04] MEDS: docusate sod 100mg capsule PO SCH ×2 (07:49→20:00)
[2019-09-04] MEDS: heparin, porcine 5000 units/ml vial SQ SCH ×2 (07:49→22:49)
[2019-09-04] MEDS: levetiracetam 250mg tablet PO SCH (07:49)
[2019-09-04] MEDS: lactobacillus rhamnosus 10,000 MMU CELLS/CAPSULE PO SCH ×2 (07:49→20:00)
[2019-09-04] MEDS ORDERED: NORMAL SALINE IV SCH (08:29)
[2019-09-04] MEDS ORDERED: SODIUM BICARBONATE IV SCH (08:29)
[2019-09-04] MEDS: buprenorphine/naloxone 2-0.5mg sublingual tablet SL SCH ×2 (08:37→20:00)
[2019-09-04] MEDS ORDERED: sodium bicarbonate (8.4%) inj. 150 MEQ in sodium chloride 0.45% 1,000 ML IV SCH (08:48)
[2019-09-04] MEDS ORDERED: heparin 1,000unit/ml 10ml vial 10 ML IV ONE (09:17)
[2019-09-04] MEDS ORDERED: normal saline 1000ml 250 ML IV PRN (09:17)
[2019-09-04] MEDS ORDERED: epoetin 20,000 units/ml inj IV ONE (09:20)
[2019-09-04] MEDS ORDERED: heparin 1,000 units/ml 10ml inj HE ONE ×2 (09:25)
[2019-09-04] MEDS ORDERED: non-formulary drug (Acetaminophen (Acetaminophen ER) 1 TAB) PO PRN (13:10)
[2019-09-04] MEDS: duloxetine 30mg CAPSULE.DR PO SCH (13:10)
[2019-09-04] MEDS ORDERED: clonazePAM 1mg tablet PO PRN (13:10)
[2019-09-04] MEDS ORDERED: non-formulary drug (Ondansetron Hcl (Zofran) 1 TAB) PO PRN (13:10)
[2019-09-04] MEDS: hydrOXYzine 25 MG tablet PO SCH ×2 (14:00→20:00)
--- NOTE | 2019-09-04 18:15 | NUR ---
Problems reprioritized. Patient report given, questions answered & plan of care reviewed with ZACARIAS Angeles.
[2019-09-04] MEDS: haloperidol 1mg tablet PO SCH (20:00)
[2019-09-04] MEDS: busPIRone 15mg tablet PO SCH (21:00)
[2019-09-04] MEDS: insulin glargine (Lantus) pen - multi-dose SQ SCH (21:00)
[2019-09-04] MEDS: busPIRone 5mg tablet PO SCH (21:00)
[2019-09-04] MEDS: gabapentin 400mg capsule PO SCH (21:00)
[2019-09-04] MEDS: lurasidone 20mg tablet PO SCH (21:00)
[2019-09-04] MEDS ORDERED: lactulose 20gm/30ml cup PO PRN (21:45)
[2019-09-04] MEDS: levoFLOXACIN-Levaquin 250mg/D5 50 ML IV SCH (22:45)
[2019-09-05] VITALS (24 sets, daily range): BP systolic 73–122; BP diastolic 34–83
[2019-09-05] MEDS: metroNIDAZOLE-Flagyl 500mg/NS 100 ML IV SCH ×3 (00:25→15:57)
[2019-09-05] MEDS: levetiracetam 250mg tablet PO SCH ×3 (00:26→22:25)
[2019-09-05] MEDS: hydrOXYzine 25 MG tablet PO SCH ×4 (02:19→22:25)
[2019-09-05 05:03] LABS: MEAN PLATELET VOLUME 8.3 FL (7.4-10.4)
[2019-09-05 05:06] LABS: BASOPHILS # (AUTO) 0.1 X10'3 (0-0.2); BASOPHILS % (AUTO) 0.5 % (0-1); EOSINOPHILS % (AUTO) 0.1 % (0-6); LYMPHOCYTES # (AUTO) 0.4 X10'3 (1.1-4.8); LYMPHOCYTES % (AUTO) 1.6 % (21-51); MONOCYTES # (AUTO) 3.2 X10'3 (0-0.9); MONOCYTES % (AUTO) 11.8 % (2-12); NEUTROPHILS # (AUTO) 23.2 X10'3 (1.8-7.7); PLATELET COUNT 187 X10'3 (140-440); RED BLOOD COUNT 5.05 X10'6 (4.20-5.60)
[2019-09-05 05:18] LABS: ALANINE AMINOTRANSFERASE 130 U/L (12-78); ALBUMIN 1.6 G/DL (3.4-5.0); ALBUMIN/GLOBULIN RATIO 0.5 (1.1-1.5); ALKALINE PHOSPHATASE 191 IU/L (46-116); ANION GAP 14 (8-16); ASPARTATE AMINO TRANSFERASE 90 U/L (10-37); BILIRUBIN,TOTAL 0.5 MG/DL (0.1-1.0); BLOOD UREA NITROGEN 28 MG/DL (7-18); BUN/CREATININE RATIO 6.8 (6.6-38.0); CALCIUM 7.3 MG/DL (8.5-10.1); CHLORIDE 99 MMOL/L (99-107); CREATININE 4.12 MG/DL (0.40-0.90); GLUCOSE 124 MG/DL (70-104); MAGNESIUM 1.7 MG/DL (1.5-2.4); PHOSPHORUS 4.5 MG/DL (2.3-4.5); SODIUM 135 MMOL/L (135-145); TOTAL CARBON DIOXIDE 22.4 MMOL/L (24-32); eGFR 12 ML/MIN
--- NOTE | 2019-09-05 06:34 | NUR ---
Problems reprioritized. Patient report given, questions answered & plan of care reviewed with LAZARO ADAMES.
[2019-09-05 06:35] LABS: HEMATOCRIT 28.1 % (35.0-45.0); HEMOGLOBIN 8.7 g/dl (12.0-16.0); MEAN CORPUSCULAR HEMOGLOBIN 17.3 PG (27.0-31.0); MEAN CORPUSCULAR HGB CONC 30.8 g/dL (33.0-36.5); MEAN CORPUSCULAR VOLUME 56.4 FL (78-98); RED CELL DISTRIBUTION WIDTH 24.7 % (11.5-14.5)
--- NOTE | 2019-09-05 06:47 | NUR ---
Patient in room CICU 2009. I have received report from ZACARIAS Yuen and had the opportunity to ask questions and assume patient care.
[2019-09-05 07:49] LABS: TOTAL CELLS COUNTED 100
[2019-09-05 07:50] LABS: ANISOCYTOSIS 3+; BURR CELLS 1+; HYPOCHROMASIA 1+; MICROCYTOSIS 3+; PLATELET ESTIMATE NORMAL; POIKILOCYTOSIS 2+
[2019-09-05 07:51] LABS: SCHISTOCYTES 1+
[2019-09-05] MEDS: busPIRone 5mg tablet PO SCH ×3 (07:55→22:25)
[2019-09-05] MEDS: duloxetine 30mg CAPSULE.DR PO SCH (07:55)
[2019-09-05] MEDS: buprenorphine/naloxone 2-0.5mg sublingual tablet SL SCH ×2 (07:55→22:25)
[2019-09-05] MEDS: atorvastatin 20mg tablet PO SCH (07:55)
[2019-09-05] MEDS: heparin, porcine 5000 units/ml vial SQ SCH ×2 (07:55→22:26)
[2019-09-05] MEDS: gabapentin 400mg capsule PO SCH (07:55)
[2019-09-05] MEDS: pantoprazole 40 MG vial IV SCH (07:55)
[2019-09-05] MEDS: lactobacillus rhamnosus 10,000 MMU CELLS/CAPSULE PO SCH ×2 (07:55→22:25)
[2019-09-05] MEDS: busPIRone 15mg tablet PO SCH ×3 (07:55→22:24)
[2019-09-05] MEDS: docusate sod 100mg capsule PO SCH ×2 (07:56→20:00)
[2019-09-05] MEDS: haloperidol 1mg tablet PO SCH ×2 (07:58→22:25)
--- NOTE | 2019-09-05 08:45 | NUR ---
TF consult: Per physical assessment pt is obtunded, documented with 0% PO intake on clear liquid diet. Corpak in place. KUB report states the tip of the nasogastric tube is indeterminate. Two more KUBs have been done, pending report. TF recommendations below calculated to meet 100% of patient's estimated nutrient needs using admit wt of 60.6 kg while pt with sepsis. TF recommendations to be adjusted once sepsis is resolved. Will continue to follow closely. Recommendations: 1) Once Corpak confirmed in appropriate location, continuous TF using Vital AF with goal rate of 65 mL/hr to provide: 1560 mL total volume/day, 1872 kcal, 117 g protein, and 1265 mL water 2) Adjust TF recommendations once sepsis is resolved 3) Hold water flushes at this time given low serum Na 4) Prealbumin q Monday/ 5) Daily weights 6) Routine bowel care 7) Advance to CHO controlled diet as medically indicated, wound benefit from BSS prior to PO diet advancement Addendum: 09/05/19 at [address] Amended: Links added. Addendum: 09/05/19 at [address] Per KUB report Corpak resides in the proximal duodenum. D/w RN that gastric residuals do not need to be checked.
[2019-09-05] MEDS: insulin regular, human U-100 3ml vial - multi-dose SQ SCH ×3 (09:10→22:29)
[2019-09-05 09:47] LABS: PREALBUMIN 9.5 MG/DL (19-36)
[2019-09-05 10:11] LABS: C DIFF ANTIGEN NEGATIVE (NEGATIVE); C DIFF SPECIMEN=DIARRHEA? ACCEPTABLE; C DIFFICILE TOXINS A&B NEGATIVE (Neg)
[2019-09-05 11:22] LABS: HBSAG SCREEN Negative (Negative)
[2019-09-05] MEDS ORDERED: gabapentin 100mg capsule PO SCH (11:28)
[2019-09-05] MEDS ORDERED: gabapentin 400mg capsule PO SCH (13:00)
--- NOTE | 2019-09-05 14:43 | NUR ---
Pt's BP 70s/40s, temp increasing to 37.8, tachycardic. Per Dr. aWtson, will give 1L NS bolus
[2019-09-05] MEDS ORDERED: normal saline 1000ml 1,000 ML IV ONE (14:45)
[2019-09-05] MEDS: midazolam 2 mg/2 ml injection ONE ×2 (16:16→16:36)
[2019-09-05] MEDS ORDERED: FENTANYL-0.9 % NACL/PF 100 ML IV PRN (16:39)
[2019-09-05] MEDS ORDERED: midazolam 100mg in NS 100ml 100 ML IV PRN ×2 (16:39→16:40)
[2019-09-05] MEDS ORDERED: MEROPENEM 500MG/50ML-NS IVPB 50 ML IV SCH (16:45)
[2019-09-05] MEDS ORDERED: vancomycin/NS 1 GM ADD-VANTAGE 250 ML IV PRN (16:45)
[2019-09-05] MEDS ORDERED: dexamethasone inj 6 MG in normal saline 100ml IV soln 100 ML IV STA (16:50)
[2019-09-05] MEDS: FENTANYL-0.9 % NACL/PF 100 ML IV PRN (16:53)
[2019-09-05] MEDS ORDERED: etomidate 2mg/ml inj. ONE (17:00)
[2019-09-05] MEDS ORDERED: vancomycin/NS 1 GM ADD-VANTAGE 250 ML IV ONE (17:00)
--- NOTE | 2019-09-05 17:04 | NUR ---
Pt rigid and clamping jaw. Snoring, grunting and will not open mouth. Tongue swollen. Emergently intubated for airway protection by Dr. Ray. MRI/LP ordered. Abx changed. Fent and versed initiated. PICC line being placed for possible initiation of levo
--- NOTE | 2019-09-05 17:41 | NUR ---
PICC insertion in Left Upper Arm (Brachial), 3CG confirmed; REF [id number]; Lot [id number]; EXP 05/20/2020
[2019-09-05] MEDS: NORepinephrine 8mg/ 250ml NS 250 ML IV SCH (17:46)
[2019-09-05] MEDS ORDERED: MIDAZolam 5mg/ml 2ml vial IV ONE (17:55)
--- NOTE | 2019-09-05 18:30 | NUR ---
Patient in room CICU 2009. I have received report from EMMY ADAMES and had the opportunity to ask questions and assume patient care.
[2019-09-05] MEDS: ipratropium/albuterol 3ml nebule NEB SCH ×2 (19:09→23:00)
[2019-09-05] MEDS: lurasidone 20mg tablet PO SCH (22:24)
[2019-09-05] MEDS: dexamethasone 4mg/ml inj IV SCH (22:26)
[2019-09-05] MEDS: insulin glargine (Lantus) pen - multi-dose SQ SCH (22:30)
[2019-09-06] VITALS (24 sets, daily range): BP systolic 86–124; BP diastolic 27–81
[2019-09-06] MEDS: ipratropium/albuterol 3ml nebule NEB SCH ×6 (02:52→23:01)
[2019-09-06] MEDS: dexamethasone 4mg/ml inj IV SCH ×4 (03:33→21:35)
[2019-09-06] MEDS: hydrOXYzine 25 MG tablet PO SCH ×2 (03:33→08:00)
[2019-09-06] MEDS: insulin regular, human U-100 3ml vial - multi-dose SQ SCH ×3 (03:35→22:03)
[2019-09-06 03:54] LABS: BASOPHILS % (AUTO) 0.1 % (0-1); EOSINOPHILS % (AUTO) 0 % (0-6); HEMATOCRIT 29.8 % (35.0-45.0); HEMOGLOBIN 8.8 g/dl (12.0-16.0); LYMPHOCYTES # (AUTO) 0.9 X10'3 (1.1-4.8); LYMPHOCYTES % (AUTO) 2.7 % (21-51); MEAN CORPUSCULAR HEMOGLOBIN 17.4 PG (27.0-31.0); MEAN CORPUSCULAR HGB CONC 29.4 g/dL (33.0-36.5); MEAN CORPUSCULAR VOLUME 59.1 FL (78-98); MEAN PLATELET VOLUME 8.6 FL (7.4-10.4); MONOCYTES # (AUTO) 1.1 X10'3 (0-0.9); MONOCYTES % (AUTO) 3.4 % (2-12); NEUTROPHILS # (AUTO) 30.2 X10'3 (1.8-7.7); NEUTROPHILS % (AUTO) 93.8 % (42-75); PLATELET COUNT 302 X10'3 (140-440); RED BLOOD COUNT 5.05 X10'6 (4.20-5.60); RED CELL DISTRIBUTION WIDTH 28.2 % (11.5-14.5)
[2019-09-06 03:59] LABS: WHITE BLOOD COUNT 32.2 X10'3 (4.5-11.0)
[2019-09-06 04:11] LABS: ALANINE AMINOTRANSFERASE 83 U/L (12-78); ALBUMIN 1.2 G/DL (3.4-5.0); ALBUMIN/GLOBULIN RATIO 0.4 (1.1-1.5); ALKALINE PHOSPHATASE 164 IU/L (46-116); ANION GAP 15 (8-16); ASPARTATE AMINO TRANSFERASE 63 U/L (10-37); BILIRUBIN,TOTAL 0.4 MG/DL (0.1-1.0); BLOOD UREA NITROGEN 39 MG/DL (7-18); BUN/CREATININE RATIO 7.7 (6.6-38.0); CALCIUM 6.6 MG/DL (8.5-10.1); CHLORIDE 100 MMOL/L (99-107); CREATININE 5.07 MG/DL (0.40-0.90); GLUCOSE 329 MG/DL (70-104); MAGNESIUM 1.8 MG/DL (1.5-2.4); POTASSIUM 4.4 MMOL/L (3.5-5.1); SODIUM 134 MMOL/L (135-145); TOTAL CARBON DIOXIDE 19.2 MMOL/L (24-32); TOTAL PROTEIN 4.5 G/DL (6.4-8.2); eGFR 10 ML/MIN
[2019-09-06 04:43] LABS: ANISOCYTOSIS 3+; HYPOCHROMASIA 1+; MICROCYTOSIS 2+; PLATELET ESTIMATE NORMAL; POIKILOCYTOSIS 2+; SCHISTOCYTES 1+; TOTAL CELLS COUNTED 100
[2019-09-06 04:44] LABS: BURR CELLS 1+
[2019-09-06 04:55] LABS: VANCOMYCIN,TROUGH 26.4 UG/ML (6.0-14.0)
--- NOTE | 2019-09-06 06:48 | NUR ---
Problems reprioritized. Patient report given, questions answered & plan of care reviewed with TOMASA ADAMES.
[2019-09-06] MEDS: heparin, porcine 5000 units/ml vial SQ SCH ×2 (07:30→21:41)
[2019-09-06] MEDS: docusate sod 100mg capsule PO SCH (08:00)
[2019-09-06] MEDS ORDERED: epoetin 20,000 units/ml inj IV ONE (08:00)
[2019-09-06] MEDS: buprenorphine/naloxone 2-0.5mg sublingual tablet SL SCH ×2 (08:00→21:38)
[2019-09-06] MEDS ORDERED: albumin (human) 25% 100ml IV 100 ML IV PRN (08:00)
[2019-09-06] MEDS: haloperidol 1mg tablet PO SCH (08:00)
[2019-09-06] MEDS ORDERED: gabapentin 100mg capsule PO SCH (08:00)
[2019-09-06] MEDS ORDERED: heparin 1,000 units/ml 10ml inj HE ONE ×2 (08:00)
[2019-09-06] MEDS ORDERED: protamine sulf. 10mg/ml inj. IV ONE (08:20)
[2019-09-06] MEDS: pantoprazole 40 MG vial IV SCH (08:23)
[2019-09-06] MEDS: CefTRIAXone inj 2,000 MG in normal saline 100ml IV soln 100 ML IV SCH ×2 (08:34→21:39)
[2019-09-06] MEDS ORDERED: LORazepam 2 mg/ml vial IV ONE ×2 (09:25→17:40)
[2019-09-06] MEDS ORDERED: LORazepam 2 mg/ml vial ONE (09:26)
[2019-09-06] MEDS: lactobacillus rhamnosus 10,000 MMU CELLS/CAPSULE PO SCH (09:34)
[2019-09-06] MEDS: duloxetine 30mg CAPSULE.DR PO SCH (09:34)
[2019-09-06] MEDS: busPIRone 5mg tablet PO SCH (09:35)
[2019-09-06] MEDS: busPIRone 15mg tablet PO SCH (09:35)
[2019-09-06] MEDS: atorvastatin 20mg tablet PO SCH (09:36)
[2019-09-06] MEDS: levetiracetam 250mg tablet PO SCH (09:36)
[2019-09-06] MEDS ORDERED: acetaminophen 325mg/10.15ml oral unit dose solution CORPAK PRN ×2 (11:32)
[2019-09-06] MEDS ORDERED: atorvastatin 20mg tablet CORPAK SCH (11:33)
[2019-09-06] MEDS ORDERED: clonazePAM 1mg tablet CORPAK PRN (11:34)
[2019-09-06] MEDS ORDERED: dextrose ORAL solution 15 GM/59 ML bottle CORPAK PRN ×2 (11:35)
[2019-09-06] MEDS ORDERED: gabapentin 100mg capsule CORPAK SCH (11:37)
[2019-09-06] MEDS ORDERED: hydrOXYzine 25 MG tablet CORPAK SCH (11:38)
[2019-09-06] MEDS ORDERED: haloperidol 1mg tablet CORPAK SCH (11:38)
[2019-09-06] MEDS ORDERED: lurasidone 20mg tablet CORPAK SCH ×2 (11:39→21:00)
[2019-09-06] MEDS ORDERED: lactulose 20gm/30ml cup CORPAK PRN (11:40)
[2019-09-06] MEDS ORDERED: vancomycin/NS 1 GM ADD-VANTAGE 250 ML IV PRN (12:35)
--- NOTE | 2019-09-06 12:49 | NUR ---
I have reviewed and agree with all medications administered and interventions performed by [facility] Familia Schmidt Addendum: 09/06/19 at 1249 by Mayte Marks RT Amended: Links added.
[2019-09-06] MEDS: busPIRone 15mg tablet CORPAK SCH ×2 (13:20→21:37)
[2019-09-06] MEDS: busPIRone 5mg tablet CORPAK SCH ×2 (13:20→21:36)
[2019-09-06] MEDS: NORepinephrine 8mg/ 250ml NS 250 ML IV SCH ×4 (14:13→23:29)
[2019-09-06] MEDS ORDERED: vancomycin/NS 1 GM ADD-VANTAGE 250 ML IV SCH (16:45)
[2019-09-06] MEDS ORDERED: albumin (human) 25% 100 ML IV solution IV ONE (16:45)
--- NOTE | 2019-09-06 18:11 | NUR ---
Pt Left floor for Lumbar puncture this morning, she started to have a seizure right before entering the elevator. Pt was brought back to the floor, PRN Ativan was helpful. Around late afternoon her blood pressure was in 80s, Called Dr. Kothari, Administered 300ml Albumin 25%. Dr. Ray at bedside and placed A-line. While he was placing A-line pt had another episode of seizure. Dr. Ro will be here this evening to do the Lumbar Puncture.
--- NOTE | 2019-09-06 18:25 | NUR ---
Problems reprioritized. Patient report given to Jelly LYMAN), questions answered & plan of care reviewed with .
--- NOTE | 2019-09-06 18:30 | NUR ---
Patient in room CICU 2009. I have received report from Shirley ADAMES and had the opportunity to ask questions and assume patient care.
--- NOTE | 2019-09-06 20:00 | NUR ---
193- Dr Alexandre at bedside for LP. Pt has had 2 short seizures at 1830 and 1925. 3mg bolus of Versed for procedure. CSF collected and sent to lab. Dressing applied over LP site and nerve stimulator surgical site.
--- NOTE | 2019-09-06 21:00 | NUR ---
Pt bathed, new ECG leads applied and filter/gain adjusted because of heavy artifact. ST elevation noted to be higher than previous. 12 lead ECG done and Troponin sent to lab.
[2019-09-06] MEDS: docusate sodium 100mg/10ml UD cup CORPAK SCH (21:34)
[2019-09-06] MEDS: lactobacillus rhamnosus 10,000 MMU CELLS/CAPSULE CORPAK SCH (21:34)
[2019-09-06] MEDS: levetiracetam 250mg tablet CORPAK SCH (21:34)
[2019-09-06] MEDS: mineral oil/petrolatum ophthal oint EACHEYE SCH (21:35)
[2019-09-06] MEDS: FENTANYL-0.9 % NACL/PF 100 ML IV PRN (21:43)
[2019-09-06] MEDS: insulin glargine (Lantus) pen - multi-dose SQ SCH (22:03)
[2019-09-06 22:16] LABS: GLUCOSE,CSF 245 MG/DL (40-75); TOTAL PROTEIN,CSF 66 MG/DL (15-45)
--- NOTE | 2019-09-06 22:30 | NUR ---
Dr Delgado at bedside for Acute OK consult. Echo done STAT. 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 See Dr Delgado's note. Addendum: 09/07/19 at 0222 by Jelly Franco RN Tube Feeding restarted at 2200 at 20ml/hr per Princess Black NP.
[2019-09-06 22:31] LABS: APPEARANCE,CSF CLEAR; CSF SUPERNATANT COLOR COLORLESS; CSF VOLUME 5.5 ML
[2019-09-06 22:32] LABS: TUBE# COUNTED 4
[2019-09-06] MEDS: vasopressin inj. 40 UNIT in normal saline 50ml IV soln 38 ML IV SCH (22:32)
[2019-09-06 22:33] LABS: CSF RBC 0 /CU MM (0); CSF WBC CT 33 /CU MM (0-5); LYMPHOCYTES,CSF 1 % (40-80); MONOCYTES,CSF 1 % (15-45); NEUTRO,CSF 98 % (0-6)
[2019-09-06 22:35] LABS: APPEARANCE,CSF CLEAR; CSF SUPERNATANT COLOR COLORLESS; CSF VOLUME 5.5 ML; CSF WBC CT 28 /CU MM (0-5); TUBE# COUNTED 1
[2019-09-06 22:36] LABS: CSF RBC 139 /CU MM (0); LYMPHOCYTES,CSF 1 % (40-80); MONOCYTES,CSF 3 % (15-45); NEUTRO,CSF 96 % (0-6)
--- NOTE | 2019-09-06 23:30 | NUR ---
Dr Ray notified by Princess Black NP. Family updated with pt's condition. No other seizures noted. Pt remains unresponsive. ST elevation remains. Pt on both max Levophed and soon to be, max Vasopressin. SBP remains below 100.
[2019-09-07] VITALS (9 sets, daily range): BP systolic 89–101; BP diastolic 54–65
[2019-09-07] MEDS ORDERED: albumin (human) 25% 100 ML IV solution IV ONE (01:35)
[2019-09-07] MEDS ORDERED: albumin (human) 25% 100ml IV 200 ML IV ONE (01:44)
[2019-09-07] MEDS: mineral oil/petrolatum ophthal oint EACHEYE SCH ×2 (02:08→08:00)
[2019-09-07] MEDS: NORepinephrine 8mg/ 250ml NS 250 ML IV SCH ×3 (02:08→07:52)
--- NOTE | 2019-09-07 02:16 | NUR ---
Both Levophed and vasopressin at max dose. Princess Black PYROTECHNIC MIXER notified, Albumin ordered, ST elevation increasing. No Urine output this shift.
[2019-09-07] MEDS: dexamethasone 4mg/ml inj IV SCH ×2 (02:28→07:56)
[2019-09-07] MEDS: insulin regular, human U-100 3ml vial - multi-dose SQ SCH (02:31)
[2019-09-07 02:47] LABS: EOSINOPHILS % (AUTO) 0 % (0-6); MEAN CORPUSCULAR HEMOGLOBIN 17.6 PG (27.0-31.0); MEAN CORPUSCULAR HGB CONC 29.1 g/dL (33.0-36.5); MEAN PLATELET VOLUME 8.3 FL (7.4-10.4); NEUTROPHILS % (AUTO) 87.9 % (42-75)
[2019-09-07] MEDS ORDERED: LORazepam 2 mg/ml vial IV ONE ×2 (02:55→03:30)
[2019-09-07 02:59] LABS: ALANINE AMINOTRANSFERASE 162 U/L (12-78); ALBUMIN 3.8 G/DL (3.4-5.0); ALBUMIN/GLOBULIN RATIO 1.7 (1.1-1.5); ALKALINE PHOSPHATASE 111 IU/L (46-116); ANION GAP 26 (8-16); ASPARTATE AMINO TRANSFERASE 683 U/L (10-37); BILIRUBIN,TOTAL 0.6 MG/DL (0.1-1.0); BLOOD UREA NITROGEN 51 MG/DL (7-18); BUN/CREATININE RATIO 8.5 (6.6-38.0); CALCIUM 6.2 MG/DL (8.5-10.1); CHLORIDE 98 MMOL/L (99-107); CREATININE 6.03 MG/DL (0.40-0.90); GLUCOSE 385 MG/DL (70-104); MAGNESIUM 2.4 MG/DL (1.5-2.4); PHOSPHORUS 8.7 MG/DL (2.3-4.5); POTASSIUM 5.6 MMOL/L (3.5-5.1); SODIUM 133 MMOL/L (135-145); eGFR 8 ML/MIN
[2019-09-07 03:00] LABS: VANCOMYCIN,TROUGH 19.8 UG/ML (6.0-14.0)
[2019-09-07] MEDS ORDERED: VANCOMYCIN LEVEL IV SCH (03:00)
[2019-09-07 03:02] LABS: TOTAL CARBON DIOXIDE 8.9 MMOL/L (24-32)
[2019-09-07 03:03] LABS: BASOPHILS # (AUTO) 0.1 X10'3 (0-0.2); BASOPHILS % (AUTO) 0.3 % (0-1); HEMATOCRIT 27.4 % (35.0-45.0); LYMPHOCYTES # (AUTO) 1.5 X10'3 (1.1-4.8); LYMPHOCYTES % (AUTO) 4.7 % (21-51); MEAN CORPUSCULAR VOLUME 60.5 FL (78-98); MONOCYTES # (AUTO) 2.3 X10'3 (0-0.9); MONOCYTES % (AUTO) 7.1 % (2-12); NEUTROPHILS # (AUTO) 28.2 X10'3 (1.8-7.7); PLATELET COUNT 210 X10'3 (140-440); RED BLOOD COUNT 4.53 X10'6 (4.20-5.60); RED CELL DISTRIBUTION WIDTH 28.6 % (11.5-14.5)
[2019-09-07 03:05] LABS: WHITE BLOOD COUNT 32.1 X10'3 (4.5-11.0)
[2019-09-07] MEDS: ipratropium/albuterol 3ml nebule NEB SCH ×2 (03:17→07:11)
[2019-09-07] MEDS ORDERED: calcium chloride inj. 1,000 MG in normal saline 100ml IV soln 90 ML IV ONE (03:30)
[2019-09-07] MEDS ORDERED: sodium bicarbonate (8.4%) inj. 150 MEQ in sodium chloride 0.45% 850 ML IV SCH (03:42)
[2019-09-07] MEDS ORDERED: sodium bicarbonate (8.4%) 1 mEq/ml syringe IV ONE (03:45)
[2019-09-07] MEDS ORDERED: sodium bicarbonate (8.4%) inj. 150 MEQ in sodium chloride 0.45% 1,000 ML IV SCH (03:50)
--- NOTE | 2019-09-07 04:23 | NUR ---
Criticals called to Princess Black [employer]TIQUE CLOCKS REPAIRER, orders received. Bicarb pushed, IV gtt started.
--- NOTE | 2019-09-07 06:17 | NUR ---
Problems reprioritized. Patient report given, questions answered & plan of care reviewed with Shirley ADAMES. Pt had 5 seizures during NOC shift. Pressors remain at max dose with BP 90s/50s. ST elevation continues to climb.
[2019-09-07] MEDS ORDERED: Insulin Reg/NS 100units/100mL 100 ML IV SCH (07:19)
[2019-09-07] MEDS ORDERED: dextrose 50%-water 50ml dispensing syringe IV PRN (07:20)
[2019-09-07] MEDS ORDERED: heparin 25,000 UNIT/250ml bag 250 ML IV SCH (07:21)
[2019-09-07] MEDS ORDERED: Duosol 4K/3 Ca (w/calcium) 5,000 ML HE SCH (07:21)
[2019-09-07] MEDS ORDERED: sodium phosphate inj. 30 MMOL in normal saline 250ml IV soln 250 ML IV PRN (07:25)
[2019-09-07] MEDS ORDERED: potassium Cl 20mEq/100mL bag 100 ML IV PRN (07:25)
[2019-09-07] MEDS ORDERED: heparin 10,000 units/1 ML INJ IV ONE (07:25)
[2019-09-07] MEDS ORDERED: heparin 10,000 units/1 ML INJ IV PRN (07:25)
[2019-09-07] MEDS ORDERED: magnesium 4gm in 100ml NS 100 ML IV PRN (07:25)
[2019-09-07] MEDS ORDERED: calcium chloride inj. 1,000 MG in normal saline 100ml IV soln 100 ML IV PRN (07:25)
[2019-09-07 07:28] LABS: ANISOCYTOSIS 3+; MICROCYTOSIS 2+; PLATELET ESTIMATE NORMAL; TOTAL CELLS COUNTED 100
[2019-09-07 07:29] LABS: HYPOCHROMASIA 1+; LARGE PLATELETS FEW; POIKILOCYTOSIS 2+; POLYCHROMASIA 1+; SCHISTOCYTES 1+
[2019-09-07] MEDS: vasopressin inj. 40 UNIT in normal saline 50ml IV soln 38 ML IV SCH (07:53)
[2019-09-07] MEDS: CefTRIAXone inj 2,000 MG in normal saline 100ml IV soln 100 ML IV SCH (07:53)
[2019-09-07] MEDS: pantoprazole 40 MG vial IV SCH (07:54)
[2019-09-07] MEDS: busPIRone 15mg tablet CORPAK SCH (07:54)
[2019-09-07] MEDS: busPIRone 5mg tablet CORPAK SCH (07:54)
[2019-09-07] MEDS: docusate sodium 100mg/10ml UD cup CORPAK SCH (07:54)
[2019-09-07] MEDS: lactobacillus rhamnosus 10,000 MMU CELLS/CAPSULE CORPAK SCH (07:55)
[2019-09-07] MEDS: levetiracetam 250mg tablet CORPAK SCH (07:56)
[2019-09-07] MEDS: buprenorphine/naloxone 2-0.5mg sublingual tablet SL SCH (08:00)
[2019-09-07] MEDS: duloxetine 30mg CAPSULE.DR PO SCH (08:00)
[2019-09-07 08:18] LABS: BASOPHILS # (AUTO) 0.1 X10'3 (0-0.2); BASOPHILS % (AUTO) 0.3 % (0-1); EOSINOPHILS % (AUTO) 0 % (0-6); HEMATOCRIT 27.8 % (35.0-45.0)
[2019-09-07 08:20] LABS: HEMOGLOBIN 8.1 g/dl (12.0-16.0); LYMPHOCYTES # (AUTO) 2.4 X10'3 (1.1-4.8); LYMPHOCYTES % (AUTO) 6.2 % (21-51); MEAN CORPUSCULAR HEMOGLOBIN 17.9 PG (27.0-31.0); MEAN CORPUSCULAR HGB CONC 29.2 g/dL (33.0-36.5); MEAN CORPUSCULAR VOLUME 61.3 FL (78-98); MEAN PLATELET VOLUME 8.8 FL (7.4-10.4); MONOCYTES % (AUTO) 7.8 % (2-12); NEUTROPHILS # (AUTO) 32.9 X10'3 (1.8-7.7); NEUTROPHILS % (AUTO) 85.7 % (42-75); PLATELET COUNT 158 X10'3 (140-440); RED BLOOD COUNT 4.54 X10'6 (4.20-5.60); RED CELL DISTRIBUTION WIDTH 28.9 % (11.5-14.5)
[2019-09-07 08:22] LABS: PARTIAL THROMBOPLASTIN TIME 63 SECONDS (22-32)
[2019-09-07] MEDS ORDERED: DOBUTamine-DoBUTrex 500mg/D5W 250 ML IV ONE (09:12)
[2019-09-07 09:17] LABS: WHITE BLOOD COUNT 38.4 X10'3 (4.5-11.0)
--- NOTE | 2019-09-07 10:32 | NUR ---
Dr. Kothari at bedside this morning. New orders for Insulin Drip and CVVH. Dr. Kothari placed a Central line to R-femoral. Per Dr. Kothari called father and asked him to come and see the patient as she is declining. Later this AM both parents present at the bedside and while CVVH was about to start pt's Blood pressure dropped to 30s. Dr. Kothari spoke with father and per both parent's wish Pt's status changed to DNR. Pt at 09 while the parents were at bedside. Dr. Kothari aware. Network donor called, pt not a candidate for organ donation. Addendum: 09/07/19 at 1042 by Silvana Bernabe RN Spoke with Bruno Keen at [facility]. Reference Number : [id number] Awaiting for father to choose a mortuary. Parents wish cremation.
--- NOTE | 2019-09-07 11:00 | NUR ---
Per parent's request called [facility] in [place]. Spoke with Lele. He said he has two more families to work with and as soon as he is available he will garbage pick up man the body.
[2019-09-10 09:36] LABS: ABG BASE EXCESS -21.3 mmol/L (-2.0-2.0); ABG HCO3 6.4 mmol/L (22.0-26.0); ABG OXYGEN SATURATION 94.4 % (94-97); ABG PCO2 (T) 20.3 mmHg (32.0-45.0); ABG PO2 (T) 101.5 mmHg (75.0-100.0); FCOHb 0.3 % (0.0-3.9); FMetHb 0.3 % (0.0-1.5); FO2Hb 93.8 % (94-97); PATIENT TEMPERATURE 36.8; PEEP 5 cm H2O; RESPIRATORY RATE 12 b/min; TIDAL VOLUME 400 mL; TOTAL HEMOGLOBIN 8.5 G/dl (12.0-16.0)
[2019-09-10 09:36] LABS: ABG BASE EXCESS -8.9 mmol/L (-2.0-2.0); ABG HCO3 16.3 mmol/L (22.0-26.0); ABG OXYGEN SATURATION 97.2 % (94-97); ABG PCO2 (T) 34.6 mmHg (32.0-45.0); ABG PO2 (T) 131.9 mmHg (75.0-100.0); FCOHb 0.2 % (0.0-3.9); FMetHb 0.3 % (0.0-1.5); FO2Hb 96.7 % (94-97); PATIENT TEMPERATURE 38.2; RESPIRATORY RATE 12 b/min; TIDAL VOLUME 400 mL; TOTAL HEMOGLOBIN 9.8 G/dl (12.0-16.0)
[2019-09-10 09:41] LABS: ABG BASE EXCESS -6.9 mmol/L (-2.0-2.0); ABG HCO3 18.1 mmol/L (22.0-26.0); ABG OXYGEN SATURATION 85.1 % (94-97); ABG PCO2 (T) 33.8 mmHg (32.0-45.0); FCOHb 0.9 % (0.0-3.9); FMetHb 0.3 % (0.0-1.5); FO2Hb 84.1 % (94-97); TOTAL HEMOGLOBIN 8.5 G/dl (12.0-16.0)
[2019-09-10 11:12] LABS: VDRL, CSF Non Reactive (Non Rea:<1:1)
[2019-09-11 09:29] LABS: HSV 1 PCR Negative (Negative); HSV 2 PCR Negative (Negative)
== END 2019-09-07 14:53 | disposition expired | DRG 871 ==
LOC: ER 13:35 → ED HOLD 21:41 → MERGE 21:41 → CICU 2S 23:24
PROVIDERS: ADMIT Internal Medicine Critical Care Medicine; ATTEND Internal Medicine Critical Care Medicine
PROC: 5A1D70Z Performance of Urinary Filtration, Intermittent, Less than 6 Hours Per Day (ICD-10-PCS; 2019-09-03)
PROC: 5A1D70Z Performance of Urinary Filtration, Intermittent, Less than 6 Hours Per Day (ICD-10-PCS; 2019-09-04)
PROC: 5A1945Z Respiratory Ventilation, 24-96 Consecutive Hours (ICD-10-PCS; 2019-09-05)
PROC: 0BH17EZ Insertion of Endotracheal Airway into Trachea, Via Natural or Artificial Opening (ICD-10-PCS; 2019-09-05)
PROC: 4A10X4Z Monitoring of Central Nervous Electrical Activity, External Approach (ICD-10-PCS; 2019-09-05)
PROC: 009U3ZZ Drainage of Spinal Canal, Percutaneous Approach (ICD-10-PCS; 2019-09-06)
PROC: 0JH63XZ Insertion of Tunneled Vascular Access Device into Chest Subcutaneous Tissue and Fascia, Percutaneous Approach (ICD-10-PCS; principal; 2019-09-07)
PROC: 02HV33Z Insertion of Infusion Device into Superior Vena Cava, Percutaneous Approach (ICD-10-PCS; 2019-09-07)
PROC: B5181ZA Fluoroscopy of Superior Vena Cava using Low Osmolar Contrast, Guidance (ICD-10-PCS; 2019-09-07)
PROC: B548ZZA Ultrasonography of Superior Vena Cava, Guidance (ICD-10-PCS; 2019-09-07)
PROC: 5A1D90Z Performance of Urinary Filtration, Continuous, Greater than 18 hours Per Day (ICD-10-PCS; 2019-09-07)
PROC: 02HV33Z Insertion of Infusion Device into Superior Vena Cava, Percutaneous Approach (ICD-10-PCS; 2019-09-07)
DX: A41.9 Sepsis, unspecified organism (principal); G93.41 Metabolic encephalopathy; I21.19 ST elevation (STEMI) myocardial infarction involving other coronary artery of inferior wall; J96.00 Acute respiratory failure, unspecified whether with hypoxia or hypercapnia; R65.21 Severe sepsis with septic shock; G04.90 Encephalitis and encephalomyelitis, unspecified; N17.0 Acute kidney failure with tubular necrosis; I47.1 Supraventricular tachycardia; E10.42 Type 1 diabetes mellitus with diabetic polyneuropathy; E10.649 Type 1 diabetes mellitus with hypoglycemia without coma; E78.5 Hyperlipidemia, unspecified; F41.9 Anxiety disorder, unspecified; R57.0 Cardiogenic shock; F32.9 Major depressive disorder, single episode, unspecified; G43.909 Migraine, unspecified, not intractable, without status migrainosus; Z96.41 Presence of insulin pump (external) (internal); K21.9 Gastro-esophageal reflux disease without esophagitis; M54.9 Dorsalgia, unspecified; F20.9 Schizophrenia, unspecified; X58.XXXA Exposure to other specified factors, initial encounter; G40.909 Epilepsy, unspecified, not intractable, without status epilepticus; K86.89 Other specified diseases of pancreas; S06.9X0A Unspecified intracranial injury without loss of consciousness, initial encounter; Z79.4 Long term (current) use of insulin; Z88.0 Allergy status to penicillin; Z88.2 Allergy status to sulfonamides; Z91.5 Personal history of self-harm; Z98.82 Breast implant status; Z98.84 Bariatric surgery status; Z79.899 Other long term (current) drug therapy; Z90.49 Acquired absence of other specified parts of digestive tract; Y93.89 Activity, other specified; Y92.89 Other specified places as the place of occurrence of the external cause; Y99.8 Other external cause status
CPT/HCPCS: 36415; 36558; 36573; 36600; 70450; 71045; 74018; 74176; 76775; 76937; 77001; 80053; 80202; 80320; 80329; 82140; 82150; 82330; 82550; 82803; 82945; 82948; 83036; 83605; 83690; 83735; 83874; 84100; 84134; 84145; 84157; 84443; 84484; 85018; 85025; 85610; 85730; 86592; 86617; 86788; 86789; 87015; 87040; 87070; 87077; 87081; 87186; 87210; 87324; 87340; 87449; 87529; 87635; 87899; 89051; 93005; 93306; 93308; 94002; 94003; 94640; 94760; 95816; 96365; 96375; 99291; A9270; C1750; C1769; C1894; C9113; E1594; G0378; J0696; J1100; J1250; J1644; J1815; J1956; J2060; J2185; J2250; J2405; J2720; J3010; J3370; J3490; J7030; J7070; P9047; Q0177; Q4081